=== PATIENT | female | born 1935 | race Caucasian/White ===

== ENCOUNTER 2017-05-17 14:20 | Inpatient (IN) | payer MEDICARE ==
[~2017-05-17] VITALS: Ht 157.5 cm; Wt 73.6 kg
[~2017-05-17 14:20] MED LIST: CLON-352 PO; DYAZ PO; FLON0.053; LOSA50TA PO; LOVA1TAB47 PO; NORC7.5T PO; OMEP20TA PO; VERA1TAB17 PO; VITA-13 PO; VITA10004 PO; Z.0.CPM; Z.0.WALKERFRONT
[2017-05-17 14:31] VITALS: BP 193/113; PULSE 81; RESP 16; TEMP 101.1; O2SAT 93
[2017-05-17] MEDS ORDERED: SODIUM CHLOR 0.9% 1000 ML INJ 1,000 ML IV SCH (14:35)
[2017-05-17] MEDS ORDERED: LOSA50TA PO (14:38)
[2017-05-17] MEDS ORDERED: LOVA20TA PO (14:38)
[2017-05-17] MEDS ORDERED: VERA1TAB17 PO (14:38)
[2017-05-17] MEDS ORDERED: CLON0.1T PO (14:38)
[2017-05-17] MEDS ORDERED: OMEP20TA PO (14:38)
[2017-05-17] MEDS ORDERED: LABETALOL HCL 100 MG/20 ML VIAL IV PUSH ONE (14:45)
--- NOTE | 2017-05-17 14:45 | PD ---
HPI Chief Complaint: Altered Mental Status Time Seen by Provider: 14:27 Travel History International Travel<30 days: No Contact w/Intl Traveler<30days: No Traveled to known affect area: No History of Present Illness HPI The patient is a 82-year-old female who presents to the emergency department via EMS for altered mental status. According to EMS the patient was at home, family states the patient was confused and not following commands. EMS states the patient was complaining of tremors. Upon arrival the patient was noted to be febrile, alert and oriented, but had difficulty following simple instructions such as keeping the thermometer in her mouth. The patient denies any headache, chest pain, shortness of breath, nausea, vomiting, diarrhea , but does note mild lower abdominal pain. The patient was noted to be incontinent of urine, however, the patient denies any associated dysuria or frequency. The patient states her primary physician is Dr. Everette Garcia. The symptoms are mild, there are no alleviating or exacerbating factors. PFSH Past Medical History Arthritis: Yes Cancer: No Cardiovascular Problems: Yes High Cholesterol: Yes Congestive Heart Failure: No Cerebrovascular Accident: No Diabetes: No Endocrine: No Gastrointestinal Disorders: Yes (GERD) GERD: Yes Genitourinary: No Hepatitis: No Hiatal Hernia: No Hypertension: Yes Immune Disorder: No Implanted Vascular Access Dvce: Yes Kidney Stones: No Medical other: No Musculoskeletal: Yes (ARTHRITIS) Neurologic: Yes Psychiatric: No Reproductive: No Respiratory: Yes (ALLERGIES) Immunizations Current: Yes Seizures: No Thyroid Disease: No Ulcer: No Past Surgical History Abdominal Surgery: No AICD: No Cardiac Surgery: No Ear Surgery: Yes (T & A) Genitourinary Surgery: No Gynecologic Surgery: No Joint Replacement: Yes (11/03/14 RIGHT TOTAL KNEE) Oral Surgery: Yes (TONSILLECTOMY) Pacemaker: No Tonsillectomy: Yes Other Surgery: Yes (11/03/14 RIGHT TOTAL KNEE) Social History Alcohol Use: No Tobacco Use: No Substance Use: No Allergies-Medications (Allergen,Severity, Reaction): Coded Allergies: Aspirin (Verified Adverse Reaction, Intermediate, GI, 11/03/14) Codeine (Verified Adverse Reaction, Intermediate, HYPER, 11/03/14) Morphine (Verified Adverse Reaction, Unknown, states causes confusion, ) Reported Meds & Prescriptions Reported Meds & Active Scripts Active Reported Verapamil ER 24 HR (Verapamil HCl) 240 Mg Tab 240 Mg PO HS Omeprazole 20 Mg Tab 20 Mg PO DAILY Lovastatin 20 Mg Tab 20 Mg PO DAILY Losartan (Losartan Potassium) 50 Mg Tab 50 Mg PO BID Clonidine (Clonidine HCl) 0.1 Mg Tab 0.1 Mg PO BID Review of Systems Except as stated in HPI: all other systems reviewed are Neg General / Constitutional: No: Fever HENT: No: Lightheadedness Cardiovascular: No: Chest Pain or Discomfort Respiratory: No: Shortness of Breath Gastrointestinal: Positive: Abdominal Pain (suprapubic discomfort), No: Nausea , Vomiting Genitourinary: No: Urgency, Frequency, Dysuria, Hematuria Musculoskeletal: No: Myalgias Neurologic: Positive: Change in Mentation Physical Exam Narrative GENERAL: Awake, alert, pleasant 82-year-old female who appears her stated age and is in no acute respiratory distress. SKIN: Focused skin assessment warm/dry. HEAD: Atraumatic. Normocephalic. EYES: Pupils equal and round. No scleral icterus. No injection or drainage. ENT: No nasal bleeding or discharge. Dry mucous membranes. Upper dentures noted. NECK: Trachea midline. No JVD. CARDIOVASCULAR: Regular rate and rhythm. No murmur appreciated. RESPIRATORY: No accessory muscle use. Clear to auscultation. Breath sounds equal bilaterally. GASTROINTESTINAL: Abdomen soft, non-tender, nondistended. No rebound tenderness. MUSCULOSKELETAL: The left lower extremity has mild erythema over the distal one third with no obvious break in the skin. The area is warm to the touch and erythematous. Positive distal pulses. NEUROLOGICAL: Awake and alert. No obvious cranial nerve deficits. Motor grossly within normal limits. Normal speech. Patient is oriented to person, place, month, and year. Patient is also oriented to the electronic die maker. PSYCHIATRIC: Appropriate mood and affect; insight and judgment normal. Data Data Last Documented VS Vital Signs Date Time Temp Pulse Resp B/P Pulse Ox O2 Delivery O2 Flow Rate FiO2 05/17/17 15:20 101.1 79 18 192/69 92 Room Air Orders Electrocardiogram (05/17/17 14:35) Ammonia (05/17/17 14:35) Complete Blood Count With Diff (05/17/17 14:35) Comprehensive Metabolic Panel (05/17/17 14:35) Creatine Kinase (Cpk) (05/17/17 14:35) Prothrombin Time / Inr (Pt) (05/17/17 14:35) Act Partial Throm Time (Ptt) (05/17/17 14:35) Troponin I (05/17/17 14:35) Thyroid Stimulating Hormone (05/17/17 14:35) Urinalysis - C+S If Indicated (05/17/17 14:35) Lactic Acid Sepsis Protocol (05/17/17 14:35) Blood Culture (05/17/17 14:35) Chest, Single Ap (05/17/17 14:35) Ct Brain W/O Iv Contrast(Rout) (05/17/17 14:35) Blood Glucose (05/17/17 14:35) Ecg Monitoring (05/17/17 14:35) Iv Access Insert/Monitor (05/17/17 14:35) Oximetry (05/17/17 14:35) Sodium Chloride 0.9% Flush (Ns Flush) (05/17/17 14:45) Sodium Chlor 0.9% 1000 Ml Inj (Ns 1000 M (05/17/17 14:35) Labetalol Inj (Trandate Inj) (05/17/17 14:45) Acetaminophen (Tylenol) (05/17/17 15:00) Urine Culture (05/17/17 15:16) Cefepime Inj (Maxipime Inj) (05/17/17 15:47) Gentamicin Inj (Gentamicin Inj) (05/17/17 15:47) Vancomycin Inj (Vancomycin Inj) (05/17/17 15:47) Admit Order (Ed Use Only) (05/17/17 15:55) Labs Laboratory Tests Test 05/17/17 05/17/17 14:54 15:16 White Blood Count 30.6 TH/MM3 Red Blood Count 4.49 MIL/MM3 Hemoglobin 12.2 GM/DL Hematocrit 37.4 % Mean Corpuscular Volume 83.3 FL Mean Corpuscular Hemoglobin 27.1 PG Mean Corpuscular Hemoglobin 32.6 % Concent Red Cell Distribution Width 13.9 % Platelet Count 265 TH/MM3 Mean Platelet Volume 8.8 FL Neutrophils (%) (Auto) 90.3 % Lymphocytes (%) (Auto) 7.9 % Monocytes (%) (Auto) 0.9 % Eosinophils (%) (Auto) 0.0 % Basophils (%) (Auto) 0.9 % Neutrophils # (Auto) 27.6 TH/MM3 Lymphocytes # (Auto) 2.4 TH/MM3 Monocytes # (Auto) 0.3 TH/MM3 Eosinophils # (Auto) 0.0 TH/MM3 Basophils # (Auto) 0.3 TH/MM3 CBC Comment AUTO DIFF Differential Total Cells 100 Counted Neutrophils % (Manual) 79 % Band Neutrophils % 11 % Lymphocytes % 6 % Monocytes % 1 % Neutrophils # (Manual) 28.5 TH/MM3 Metamyelocytes 2 % Myelocytes 1 % Differential Comment FINAL DIFF MANUAL Platelet Estimate NORMAL Platelet Morphology Comment NORMAL Prothrombin Time 10.5 SEC Prothromb Time International 1.0 RATIO Ratio Activated Partial 25.4 SEC Thromboplast Time Sodium Level 135 MEQ/L Potassium Level 3.8 MEQ/L Chloride Level 102 MEQ/L Carbon Dioxide Level 24.9 MEQ/L Anion Gap 8 MEQ/L Blood Urea Nitrogen 13 MG/DL Creatinine 0.92 MG/DL Estimat Glomerular Filtration 59 ML/MIN Rate Random Glucose 113 MG/DL Lactic Acid Level 2.1 mmol/L Calcium Level 9.3 MG/DL Total Bilirubin 0.6 MG/DL Aspartate Amino Transf 18 U/L (AST/SGOT) Alanine Aminotransferase 15 U/L (ALT/SGPT) Alkaline Phosphatase 80 U/L Ammonia 26 MCMOL/L Total Creatine Kinase 63 U/L Troponin I LESS THAN 0.02 NG/ML Total Protein 7.5 GM/DL Albumin 3.6 GM/DL Thyroid Stimulating Hormone 0.377 uIU/ML 3rd Gen Urine Collection Type CATH Urine Color YELLOW Urine Turbidity CLEAR Urine pH 6.0 Urine Specific [place] 1.013 Urine Protein 100 mg/dL Urine Glucose (UA) NEG mg/dL Urine Ketones NEG mg/dL Urine Occult Blood SMALL Urine Nitrite NEG Urine Bilirubin NEG Urine Leukocyte Esterase NEG Urine RBC 4-9 /hpf Urine WBC 15-19 /hpf Urine WBC Clumps FEW Microscopic Urinalysis Comment CATH-CULTURE IND Urine Collection Time 15:16 MDM Medical Decision Making Medical Screen Exam Complete: Yes Emergency Medical Condition: Yes Medical Record Reviewed: Yes Interpretation(s) EKG reveals normal sinus rhythm with a rate 80. Nonspecific T wave changes. Laboratory Tests Test 05/17/17 05/17/17 14:54 15:16 White Blood Count 30.6 TH/MM3 Red Blood Count 4.49 MIL/MM3 Hemoglobin 12.2 GM/DL Hematocrit 37.4 % Mean Corpuscular Volume 83.3 FL Mean Corpuscular Hemoglobin 27.1 PG Mean Corpuscular Hemoglobin 32.6 % Concent Red Cell Distribution Width 13.9 % Platelet Count 265 TH/MM3 Mean Platelet Volume 8.8 FL Neutrophils (%) (Auto) 90.3 % Lymphocytes (%) (Auto) 7.9 % Monocytes (%) (Auto) 0.9 % Eosinophils (%) (Auto) 0.0 % Basophils (%) (Auto) 0.9 % Neutrophils # (Auto) 27.6 TH/MM3 Lymphocytes # (Auto) 2.4 TH/MM3 Monocytes # (Auto) 0.3 TH/MM3 Eosinophils # (Auto) 0.0 TH/MM3 Basophils # (Auto) 0.3 TH/MM3 CBC Comment AUTO DIFF Differential Total Cells 100 Counted Neutrophils % (Manual) 79 % Band Neutrophils % 11 % Lymphocytes % 6 % Monocytes % 1 % Neutrophils # (Manual) 28.5 TH/MM3 Metamyelocytes 2 % Myelocytes 1 % Differential Comment FINAL DIFF MANUAL Platelet Estimate NORMAL Platelet Morphology Comment NORMAL Prothrombin Time 10.5 SEC Prothromb Time International 1.0 RATIO Ratio Activated Partial 25.4 SEC Thromboplast Time Sodium Level 135 MEQ/L Potassium Level 3.8 MEQ/L Chloride Level 102 MEQ/L Carbon Dioxide Level 24.9 MEQ/L Anion Gap 8 MEQ/L Blood Urea Nitrogen 13 MG/DL Creatinine 0.92 MG/DL Estimat Glomerular Filtration 59 ML/MIN Rate Random Glucose 113 MG/DL Lactic Acid Level 2.1 mmol/L Calcium Level 9.3 MG/DL Total Bilirubin 0.6 MG/DL Aspartate Amino Transf 18 U/L (AST/SGOT) Alanine Aminotransferase 15 U/L (ALT/SGPT) Alkaline Phosphatase 80 U/L Ammonia 26 MCMOL/L Total Creatine Kinase 63 U/L Troponin I LESS THAN 0.02 NG/ML Total Protein 7.5 GM/DL Albumin 3.6 GM/DL Thyroid Stimulating Hormone 0.377 uIU/ML 3rd Gen Urine Collection Type CATH Urine Color YELLOW Urine Turbidity CLEAR Urine pH 6.0 Urine Specific [place] 1.013 Urine Protein 100 mg/dL Urine Glucose (UA) NEG mg/dL Urine Ketones NEG mg/dL Urine Occult Blood SMALL Urine Nitrite NEG Urine Bilirubin NEG Urine Leukocyte Esterase NEG Urine RBC 4-9 /hpf Urine WBC 15-19 /hpf Urine WBC Clumps FEW Microscopic Urinalysis Comment CATH-CULTURE IND Urine Collection Time 15:16 CT of the brain reveals no evidence of acute infarct, hemorrhage, mass, or edema. Mild ventriculomegaly. Differential Diagnosis Differential diagnosis includes UTI, subdural hemorrhage, hyponatremia, pneumonia, sepsis, meningitis, encephalitis, delirium, medication side effect. Narrative Course IV was established, labs are drawn and sent, and the patient was placed on cardiac telemetry monitoring and continuous pulse oximetry monitoring. EKG was ordered and interpreted. Chest x-ray was obtained. Catheter UA was sent to lab. Lactic acid blood culture were sent to lab. The patient's white count was 30.6 with bandemia 11%. UA is positive for WBCs 15-19, and chest x-rays unremarkable. Lactic acid is mildly elevated at 2.1. The patient was administered antibiotics, she may severe sepsis criteria with leukocytosis, bandemia, and fever. Patient's primary physician is Dr. Everette Garcia with [facility], therefore, the on-call [facility] physician was paged for admission. The patient received Zosyn, gentamicin, and vancomycin for sepsis. The patient does appear to have cellulitis and UTI, will be covered for both. I discussed the patient with Dr. Levy who agrees with admission. Sepsis Criteria SIRS Criteria (2 or more): Temp > 100.9 or < 96.8, WBC > 22804, < 4000 or > 10 % bands Sepsis Criteria (SIRS+source): Infect source susp/known Severe Sepsis (+one): Lactate >2 Criteria Outcome: Meets severe sepsis criteria Physician Communication Physician Communication The on-call [facility] physician was paged for admission. I discussed patient with Dr. Levy who agrees with admission. Diagnosis Primary Impression: Sepsis Qualified Code: A41.9 - Sepsis, due to unspecified organism Additional Impressions: Leukocytosis Qualified Code: D72.825 - Bandemia Lactic acidosis UTI (urinary tract infection) Qualified Code: N30.00 - Acute cystitis without hematuria Admitting Information Admitting Physician Requests: Admit Condition: Stable Ming Benedict MD May 17, 2017 14:45
[2017-05-17 14:56] VITALS: O2SAT 97
[2017-05-17] MEDS ORDERED: ACETAMINOPHEN 325 MG TAB PO ONE (15:00)
[2017-05-17 15:06] LABS: AUTOMATED NEUTROPHIL # 27.6 TH/MM3 (1.8-7.7); BASOPHIL # 0.3 TH/MM3 (0-0.2); BASOPHIL % 0.9 % (0.0-2.0); HEMATOCRIT 37.4 % (35.0-46.0); LYMPH % 7.9 % (9.0-44.0); LYMPHOCYTE # 2.4 TH/MM3 (1.0-4.8); MEAN CELL VOLUME 83.3 FL (80.0-100.0); MEAN CORPUSCULAR HEMOGLOBIN 27.1 PG (27.0-34.0); MEAN CORPUSCULAR HGB CONC 32.6 % (32.0-36.0); MONO % 0.9 % (0.0-8.0); NEUT % 90.3 % (16.0-70.0); PLATELET COUNT 265 TH/MM3 (150-450); RED BLOOD COUNT 4.49 MIL/MM3 (4.00-5.30); RED CELL DISTRIBUTION WIDTH 13.9 % (11.6-17.2); WHITE BLOOD COUNT 30.6 TH/MM3 (4.0-11.0)
[2017-05-17 15:12] LABS: HEMO FLAGS AUTO DIFF
[2017-05-17 15:15] LABS: CHLORIDE 102 MEQ/L (98-107); POTASSIUM 3.8 MEQ/L (3.5-5.1); SODIUM (NA) 135 MEQ/L (136-145)
[2017-05-17 15:18] LABS: ANION GAP 8 MEQ/L (5-15); BICARBONATE 24.9 MEQ/L (21.0-32.0)
[2017-05-17 15:19] LABS: APTT (PATIENT) 25.4 SEC (24.3-30.1); BLOOD UREA NITROGEN 13 MG/DL (7-18); PROTHROMBIN TIME - PATIENT 10.5 SEC (9.8-11.6)
[2017-05-17 15:20] VITALS: BP 192/69; PULSE 79; RESP 18; TEMP 101.1; O2SAT 92
[2017-05-17 15:21] LABS: BLOOD, URINE SMALL (NEG); GLUCOSE,URINE NEG (NEG); KETONE, URINE NEG (NEG); NITRITE,URINE NEG (NEG)
[2017-05-17 15:21] LABS: ALT (GPT) 15 U/L (10-53); AST (GOT) 18 U/L (15-37)
[2017-05-17 15:22] LABS: GLOMERULAR FILTRATION RATE 59 ML/MIN (>89)
[2017-05-17 15:23] LABS: TOTAL BILIRUBIN ADULT 0.6 MG/DL (0.2-1.0)
[2017-05-17 15:24] LABS: ALKALINE PHOSPHATASE 80 U/L (45-117)
[2017-05-17 15:31] LABS: METHOD OF COLLECTION CATH; URINE COLOR YELLOW (YELLW/STRAW)
[2017-05-17 15:32] LABS: COMMENT (UR) CATH-CULTURE IND; CULTURE IF INDICATED CATH CULTURE IND; WBC, URINE 15-19 /hpf (0-5)
[2017-05-17 15:35] LABS: CREATINE KINASE 63 U/L (26-192)
--- NOTE | 2017-05-17 15:40 | RADRPT ---
EXAM DATE/TIME: 05/17/2017 15:17 [facility] COMPARISON: CHEST PA & LAT, February 04, 2014, 10:14. INDICATIONS : Fever. MEDICAL HISTORY : None. SURGICAL HISTORY : None. ENCOUNTER: Initial ACUITY: 1 day PAIN SCORE: 0/10 LOCATION: Bilateral chest FINDINGS: A single view of the chest demonstrates the lungs to be symmetrically aerated without evidence of mas s, infiltrate or effusion. The cardiomediastinal contours are unremarkable. Osseous structures are intact. CONCLUSION: No acute disease. Vargas Juarez MD on May 17, 2017 at 15:38 Board Certified Radiologist. This report was verified electronically.
[2017-05-17 15:41] LABS: BANDS 11 % (0-6); METAMYELOCYTES 2 % (0-1); MYELOCYTES 1 % (0-0); NEUTROPHIL # MANUAL DIFF 28.5 TH/MM3 (1.8-7.7); PLATELET ESTIMATE SMEAR NORMAL (NORMAL); PLATELET MORPHOLOGY NORMAL (NORMAL); POLYS (SEG NEUTROPHILS) 79 % (16-70); SCAN/DIFF FINAL DIFF MANUAL; WBC DIFF SAMPLE 100
[2017-05-17] MEDS ORDERED: GENTAMICIN INJ 80 MG in SODIUM CHLORIDE 0.9% INJ 100 ML IV STA (15:47)
[2017-05-17] MEDS ORDERED: VANCOMYCIN INJ 1,000 MG in SODIUM CHLOR 0.9% 250 ML INJ 250 ML IV STA (15:47)
[2017-05-17] MEDS ORDERED: CEFEPIME INJ 2,000 MG in SODIUM CHLORIDE 0.9% INJ 100 ML IV STA (15:47)
--- NOTE | 2017-05-17 15:54 | RADRPT ---
EXAM DATE/TIME: 05/17/2017 15:32 [facility] COMPARISON: No previous studies available for comparison. INDICATIONS : Altered mental status. Weakness. RADIATION DOSE: 58.22 CTDIvol (mGy) ; Patient motion MEDICAL HISTORY : Hypertension. Cardiovascular disease SURGICAL HISTORY : None. ENCOUNTER: Initial ACUITY: 1 day PAIN SCALE: 0/10 LOCATION: cranial TECHNIQUE: Multiple contiguous axial images were obtained of the head. Using automated exposure control and adj ustment of the mA and/or kV according to patient size, radiation dose was kept as low as reasonably a chievable to obtain optimal diagnostic quality images. DICOM format image data is available electro nically for review and comparison. FINDINGS: CEREBRUM: The ventricles are mildly enlarged. No evidence of midline shift, mass lesion, hemorrhage or acute i nfarction. No extra-axial fluid collections are seen. POSTERIOR FOSSA: The cerebellum and brainstem are intact. The 4th ventricle is midline. The cerebellopontine angle i s unremarkable. EXTRACRANIAL: The visualized portion of the orbits is intact. SKULL: The calvaria is intact. No evidence of skull fracture. CONCLUSION: 1. No evidence of acute infarct, hemorrhage, mass or edema. 2. Mild ventriculomegaly Vargas Juarez MD on May 17, 2017 at 15:51 Board Certified Radiologist. This report was verified electronically.
[2017-05-17 16:05] VITALS: BP 159/83; PULSE 81; RESP 16; TEMP 101.1; O2SAT 91
[2017-05-17] MEDS ORDERED: IBUPROFEN 400 MG TAB PO ONE (16:15)
[2017-05-17 17:01] LABS: LACTIC ACID GHOST NOT REPORTABLE
--- NOTE | 2017-05-17 17:10 | HHI.HP ---
HPI Service [facility] Hospitalists Primary Care Physician Everette Garcia MD Admission Diagnosis sepsis, UTI, cellulitis, leukocytosis, lactic acidosis, AMS Chief Complaint: AMS, fever, leg rash, "shakes" Travel History International Travel<30 Days: No Contact w/Intl Traveler <30 Da: No Traveled to Known Affected Are: No Sepsis Criteria SIRS Criteria (2 or more): Temp > 100.9 or < 96.8, WBC > 09486, < 4000 or > 10 % bands Sepsis Criteria (SIRS+source): Infect source susp/known Severe Sepsis (+one): Lactate >2 Criteria Outcome: Meets severe sepsis criteria History of Present Illness The patient is a 82-year-old female with HTN, hyperlipidemia, gait instability who presents to the emergency department via EMS for altered mental status. According to EMS the patient was at home and family states the patient was confused and not following commands which started this morning. Patient was actually doing well and she awoke this morning and was able to take her cat to the vet and return home without incident. The patient and family report that she was having "the shakes" at home. Upon arrival the patient was noted to be febrile, alert and oriented, but had difficulty following simple instructions such as keeping the thermometer in her mouth. The patient denies any headache, chest pain, shortness of breath, nausea, vomiting, diarrhea, but does note mild lower abdominal pain. The patient was noted to be incontinent of urine, however, the patient denies any associated dysuria or frequency. The patient states her primary physician is Dr. Everette Garcia. The symptoms are mild , there are no alleviating or exacerbating factors. She has been treated with IV fluids and antibiotics here. She and family report that the patient is much more coherent and has only minimal tremor at this time. Patient is able to recount the events of today and is aware that she was confused earlier but feels much improved presently. Patient was noted to have erythematous rash distal left lower extremity. She denies any trauma to the area or any known arthropod envenomation or other unusual contacts. Family members aren't sure of how long this has been present for do not believe the rash was present over the last day or so. Patient denies any photophobia or neck stiffness. Review of Systems ROS Limitations: Altered Mental Status Constitutional: COMPLAINS OF: Fever, Chills, Dizziness Eyes: DENIES: Blurred vision, Diplopia, Eye inflammation, Eye pain, Vision loss , Photosensitivity, Double Vision Ears, nose, mouth, throat: DENIES: Tinnitus, Hearing loss, Vertigo, Nasal discharge, Oral lesions, Throat pain, Hoarseness, Ear Pain, Running Nose, Epistaxis, Sinus Pain, Toothache, Odynophagia Respiratory: DENIES: Apneas, Cough, Snoring, Wheezing, Hemoptysis, Sputum production, Shortness of breath Cardiovascular: DENIES: Chest pain, Palpitations, Syncope, Dyspnea on Exertion , PND, Lower Extremity Edema, Orthopnea, Claudication Gastrointestinal: DENIES: Abdominal pain, Black stools, Bloody stools, BRB per rectum, Constipation, Diarrhea, GERD, Nausea, Reflux, Vomiting, Difficulty Swallowing, Anorexia, See HPI Musculoskeletal: COMPLAINS OF: Joint pain Integumentary: COMPLAINS OF: Rash Immunologic/allergic: DENIES: Eczema, Urticaria Neurologic: COMPLAINS OF: Poor Balance Psychiatric: COMPLAINS OF: Anxiety, Confusion Past Family Social History Past Medical History GERD Gait instability HTN Hpercalcemia Hyperlipidemia Lumbar DDD Osteoporosis Superior Mesenteric Artery stenosis Vit D and B12 def Emphysema Past Surgical History Rt TKA 10/2014 Removal of Right knee arthroplasty due to infection 11/2014 T&A Colonoscopy/EGD Reported Medications Verapamil ER 24 HR (Verapamil HCl) 240 Mg Tab 240 Mg PO BID Omeprazole 20 Mg Tab 20 Mg PO DAILY Lovastatin 20 Mg Tab 20 Mg PO DAILY Losartan (Losartan Potassium) 50 Mg Tab 50 Mg PO BID Clonidine (Clonidine HCl) 0.1 Mg Tab 0.1 Mg PO BID Flonase prn B12 500 mcg po daily vit D 2000 units/d Triamterene/HCTZ 37.5/25 once daily (unclear if she is taking this as directed close) Allergies: Coded Allergies: Aspirin (Verified Adverse Reaction, Intermediate, GI, 11/03/14) Codeine (Verified Adverse Reaction, Intermediate, HYPER, 11/03/14) Morphine (Verified Adverse Reaction, Unknown, states causes confusion, ) Family History nc Social History No tobacco since 1999; prior to that smoked 1/3 to 1/2 ppd for 40 yrs No EtOH Retired from school cafeteria Exercises regularly Physical Exam Vital Signs Vital Signs Date Time Temp Pulse Resp B/P Pulse Ox O2 Delivery O2 Flow Rate FiO2 05/17/17 16:05 101.1 81 16 159/83 91 Room Air 05/17/17 15:20 101.1 79 18 192/69 92 Room Air 05/17/17 14:56 97 Room Air 05/17/17 14:31 101.1 81 16 193/113 93 Physical Exam GENERAL: This is a well-nourished, well-developed patient, in no apparent distress. Alert but somewhat confused. She is able to recount the day of the week and the year but reports that it is February 22, 2017 (actual date May 17, 2017). She is cooperative with exam and follow simple commands well. SKIN: Erythematous patch anterior left lower fuentes with mild tenderness to palpation. No bulla formation or open wounds. No drainage. No surrounding satellite lesions. No lymphangitic streaks. HEAD: Atraumatic. Normocephalic. No temporal or scalp tenderness. EYES: Pupils equal round and reactive. Extraocular motions intact. No scleral icterus. No injection or drainage. ENT: Nose without bleeding, purulent drainage or septal hematoma. Appears to have slight dried blood in lower vehicle mucosa on the left. No obvious mass or lesion. Airway patent. NECK: Trachea midline. No JVD or lymphadenopathy. Supple, nontender, no meningeal signs. CARDIOVASCULAR: Regular rate and rhythm without murmurs, gallops, or rubs. RESPIRATORY: Clear to auscultation. Breath sounds equal bilaterally. No wheezes , rales, or rhonchi. GASTROINTESTINAL: Abdomen soft, non-tender, nondistended. No hepato-splenomegaly , or palpable masses. No guarding. Bowel sounds normal. MUSCULOSKELETAL: Extremities without clubbing, cyanosis. Trace edema bilateral distal lower extremities. Erythematous patch left fuentes as noted above. No joint tenderness, effusion, or edema noted. No calf tenderness. NEUROLOGICAL: Awake and alert. Cranial nerves II through XII intact. Motor and sensory grossly within normal limits. Five out of 5 muscle strength in all muscle groups. Normal speech. Laboratory Laboratory Tests Test 05/17/17 05/17/17 14:54 15:16 White Blood Count 30.6 Red Blood Count 4.49 Hemoglobin 12.2 Hematocrit 37.4 Mean Corpuscular Volume 83.3 Mean Corpuscular Hemoglobin 27.1 Mean Corpuscular Hemoglobin 32.6 Concent Red Cell Distribution Width 13.9 Platelet Count 265 Mean Platelet Volume 8.8 Neutrophils (%) (Auto) 90.3 Lymphocytes (%) (Auto) 7.9 Monocytes (%) (Auto) 0.9 Eosinophils (%) (Auto) 0.0 Basophils (%) (Auto) 0.9 Neutrophils # (Auto) 27.6 Lymphocytes # (Auto) 2.4 Monocytes # (Auto) 0.3 Eosinophils # (Auto) 0.0 Basophils # (Auto) 0.3 CBC Comment AUTO DIFF Differential Total Cells 100 Counted Neutrophils % (Manual) 79 Band Neutrophils % 11 Lymphocytes % 6 Monocytes % 1 Neutrophils # (Manual) 28.5 Metamyelocytes 2 Myelocytes 1 Differential Comment FINAL DIFF MANUAL Platelet Estimate NORMAL Platelet Morphology Comment NORMAL Prothrombin Time 10.5 Prothromb Time International 1.0 Ratio Activated Partial 25.4 Thromboplast Time Sodium Level 135 Potassium Level 3.8 Chloride Level 102 Carbon Dioxide Level 24.9 Anion Gap 8 Blood Urea Nitrogen 13 Creatinine 0.92 Estimat Glomerular Filtration 59 Rate Random Glucose 113 Lactic Acid Level 2.1 Calcium Level 9.3 Total Bilirubin 0.6 Aspartate Amino Transf 18 (AST/SGOT) Alanine Aminotransferase 15 (ALT/SGPT) Alkaline Phosphatase 80 Ammonia 26 Total Creatine Kinase 63 Troponin I LESS THAN 0.02 Total Protein 7.5 Albumin 3.6 Thyroid Stimulating Hormone 0.377 3rd Gen Urine Collection Type CATH Urine Color YELLOW Urine Turbidity CLEAR Urine pH 6.0 Urine Specific Brinson 1.013 Urine Protein 100 Urine Glucose (UA) NEG Urine Ketones NEG Urine Occult Blood SMALL Urine Nitrite NEG Urine Bilirubin NEG Urine Leukocyte Esterase NEG Urine RBC 4-9 Urine WBC 15-19 Urine WBC Clumps FEW Microscopic Urinalysis Comment CATH-CULTURE IND Urine Collection Time 15:16 Date/Time Procedure Status Source Growth 05/17/17 15:16 Urine Culture Received Urine Catheterized Urine Pending 05/17/17 14:55 Aerobic Blood Culture Received Blood Peripheral Pending 05/17/17 14:55 Anaerobic Blood Culture Received Blood Peripheral Pending Result Diagram: 05/17/17 1454 05/17/17 1454 Imaging Last [address] 05/17/17 1435 Signed Impressions: Service Date/Time: Wednesday, May 17, 2017 15:32 - CONCLUSION: 1. No evidence of acute infarct, hemorrhage, mass or edema. 2. Mild ventriculomegaly Vargas Juarez MD Chest X-Ray 05/17/17 1435 Signed Impressions: Service Date/Time: Wednesday, May 17, 2017 15:17 - CONCLUSION: No acute disease. Vargas Juarez MD Septic Shock Reassessment Heart: Regular rate and rhythm Lungs: Clear Skin: Warm Peripheral Pulses: Bounding Right Popliteal Bounding Left Popliteal Capillary Refill: Brisk Assessment and Plan Problem List: (1) Sepsis Status: Acute Plan: Possibly associated with underlying urinary infection and for the cellulitic process in the left lower extremity. We'll continue broad-spectrum antibiotic coverage. Cultures are pending. She appears to have had good response to the IV fluids and antibiotic she has been given thus far. Clinically appears quite stable and her mentation is returning to baseline. (2) Lactic acidosis Status: Acute Plan: Likely associated with the septic process ongoing. Continue lactic acid protocol. IV fluids and antibiotics. (3) UTI (urinary tract infection) Status: Acute Plan: As above. (4) GERD (gastroesophageal reflux disease) Status: Chronic Plan: Continue PPI. (5) HTN (hypertension) Status: Chronic Plan: Continue home medication. It is unclear if she is actually taking her triamterene/HCTZ based on outpatient refill history. (6) Emphysema of lung Status: Chronic Plan: Duo neb as needed. Code Status Full Discussed Condition With Patient, her sister, her [id number] and ER provider. Physician Certification 2 Midnight Certification Type: Admission for Inpatient Services Order for Inpatient Services The services are ordered in accordance with Medicare regulations or non- Medicare payer requirements, as applicable. In the case of services not specified as inpatient-only, they are appropriately provided as inpatient services in accordance with the 2-midnight benchmark. Estimated LOS (days): 2 days is the estimated time the patient will need to remain in the hospital, assuming treatment plan goals are met and no additional complications. Post-Hospital Plan: Not yet determined Problem Qualifiers (1) Sepsis: Qualified Code: A41.9 - Sepsis, due to unspecified organism (2) UTI (urinary tract infection): Qualified Code: N30.00 - Acute cystitis without hematuria (3) HTN (hypertension): Qualified Code: I10 - Essential hypertension James Levy MD PhD May 17, 2017 17:10
[2017-05-17 17:48] VITALS: BP 162/69; PULSE 76; RESP 21; TEMP 98; O2SAT 92
[2017-05-17] MEDS ORDERED: Vancomycin Consult Pharmacy 1 EA OTHER SCH (18:15)
[2017-05-17 20:00] VITALS: BP 153/68; PULSE 70; RESP 16; TEMP 98.9; O2SAT 96
[2017-05-17] MEDS: LOSARTAN 50 MG TAB PO SCH (20:14)
[2017-05-17] MEDS: cloNIDine HCL 0.1 MG TAB PO SCH (20:14)
[2017-05-17] MEDS ORDERED: ACETAMINOPHEN 325 MG TAB PO PRN (20:15)
[2017-05-17] MEDS: NS + KCL 20 MEQ INJ 1,000 ML IV SCH (20:19)
[2017-05-18] VITALS: BP 165/65; PULSE 71; RESP 18; TEMP 98.9; O2SAT 95
[2017-05-18] MEDS ORDERED: RESP: ALBUTEROL 2.5 MG/IPRATROPIUM 0.5 MG NEB (PRN) NEB ×2 (02:15→19:30)
[2017-05-18] MEDS: CEFEPIME INJ 2,000 MG in SODIUM CHLORIDE 0.9% INJ 100 ML IV SCH ×2 (03:10→16:10)
[2017-05-18] MEDS: NS + KCL 20 MEQ INJ 1,000 ML IV SCH (05:31)
[2017-05-18 06:22] LABS: AUTOMATED NEUTROPHIL # 16.9 TH/MM3 (1.8-7.7); BASOPHIL # 0.1 TH/MM3 (0-0.2); BASOPHIL % 0.4 % (0.0-2.0); EOSINOPHIL % 0.2 % (0.0-4.0); HEMATOCRIT 31.1 % (35.0-46.0); LYMPH % 9.8 % (9.0-44.0); LYMPHOCYTE # 1.9 TH/MM3 (1.0-4.8); MEAN CORPUSCULAR HEMOGLOBIN 27.1 PG (27.0-34.0); MONO % 4.8 % (0.0-8.0); NEUT % 84.8 % (16.0-70.0); PLATELET COUNT 180 TH/MM3 (150-450); RED BLOOD COUNT 3.79 MIL/MM3 (4.00-5.30); RED CELL DISTRIBUTION WIDTH 13.9 % (11.6-17.2); WHITE BLOOD COUNT 19.8 TH/MM3 (4.0-11.0)
[2017-05-18 06:26] LABS: POTASSIUM 3.8 MEQ/L (3.5-5.1)
[2017-05-18 06:28] LABS: HEMO FLAGS DIFF FINAL
[2017-05-18 06:35] LABS: BICARBONATE 24.3 MEQ/L (21.0-32.0)
[2017-05-18] MEDS: cloNIDine HCL 0.1 MG TAB PO SCH ×2 (07:42→20:23)
[2017-05-18] MEDS: ENOXAPARIN SODIUM 30 MG/0.3 ML SYRINGE SQ SCH (07:42)
[2017-05-18] MEDS: PANTOPRAZOLE SOD 20 MG DELAYED RELEASE TAB PO SCH (07:43)
[2017-05-18] MEDS: PRAVASTATIN SOD 20 MG TAB PO SCH (07:43)
[2017-05-18] MEDS: LOSARTAN 50 MG TAB PO SCH ×2 (07:43→20:23)
--- NOTE | 2017-05-18 07:59 | HHI.PR ---
Subjective Remarks Patient reports feeling much better. No fever overnight. Tolerating oral intake. She has been ambulating in the room with assistance. No more urinary incontinence. Objective Vitals GENERAL: No acute distress, pleasant, alert and oriented. No confusion noted on exam this morning. SKIN: Warm and dry. Left distal fuentes erythematous patch improved with noted decrease in size. Still somewhat warm to touch but nonpainful. HEAD: Normocephalic. EYES: No scleral icterus. No injection or drainage. NECK: Supple, trachea midline. No JVD or lymphadenopathy. CARDIOVASCULAR: Regular rate and rhythm without murmurs, gallops, or rubs. RESPIRATORY: Breath sounds equal bilaterally. No accessory muscle use. GASTROINTESTINAL: Abdomen soft, non-tender, nondistended. Bowel sounds normal. MUSCULOSKELETAL: No cyanosis, or edema. Vital Signs Date Time Temp Pulse Resp B/P Pulse Ox O2 Delivery O2 Flow Rate FiO2 05/18/17 00:00 98.9 71 18 165/65 95 05/17/17 20:00 98.9 70 16 153/68 96 05/17/17 17:48 98.0 76 21 162/69 92 05/17/17 16:05 101.1 81 16 159/83 91 Room Air 05/17/17 15:20 101.1 79 18 192/69 92 Room Air 05/17/17 14:56 97 Room Air 05/17/17 14:31 101.1 81 16 193/113 93 05/17/17 05/17/17 05/18/17 15:00 23:00 07:00 Intake Total 1000 ml Output Total 450 ml Balance 550 ml Intake IV Total 1000 ml Output Urine Total 450 ml # Voids 1 Result Diagram: 05/18/17 0528 05/18/17 0528 Imaging Last [address] 05/17/171434 Signed Impressions: Service Date/Time: Wednesday, May 17, 2017 15:32 - CONCLUSION: 1. No evidence of acute infarct, hemorrhage, mass or edema. 2. Mild ventriculomegaly Vargas Juarez MD Chest X-Ray 05/17/17 1435 Signed Impressions: Service Date/Time: Wednesday, May 17, 2017 15:17 - CONCLUSION: No acute disease. Vargas Juarez MD Urinary Catheter: No Vascular Central Line Catheter: No A/P Problem List: (1) Sepsis Status: Acute Plan: Possibly associated with underlying urinary infection and for the cellulitic process in the left lower extremity. We'll continue broad-spectrum antibiotic coverage. Cultures are pending. Appears much improved this morning with no confusion and no more fever. (2) Lactic acidosis Status: Acute Plan: Likely associated with the septic process ongoing. Continue IV fluids and antibiotics. Lactic acid normal this morning. (3) UTI (urinary tract infection) Status: Acute Plan: As above. (4) GERD (gastroesophageal reflux disease) Status: Chronic Plan: Continue PPI. (5) HTN (hypertension) Status: Chronic Plan: Continue home medication. It is unclear if she is actually taking her triamterene/HCTZ based on outpatient refill history. Last few diastolic values have been in the 60s so we'll monitor closely. (6) Emphysema of lung Status: Chronic Plan: Duo neb as needed. Discharge Planning Hopefully discharge in next 1-2 days. Problem Qualifiers (1) Sepsis: Qualified Code: A41.9 - Sepsis, due to unspecified organism (2) UTI (urinary tract infection): Qualified Code: N30.00 - Acute cystitis without hematuria (3) HTN (hypertension): Qualified Code: I10 - Essential hypertension James Levy MD PhD May 18, 2017 07:59
[2017-05-18 08:00] VITALS: BP 179/63; PULSE 76; RESP 17; TEMP 99.6; O2SAT 98
--- NOTE | 2017-05-18 11:26 | EKG ---
Date Performed: 05/17/2017 Time Performed: 14:54:59 PTAGE: 82 years EKG: Sinus rhythm NONSPECIFIC ST & T-WAVE ABNORMALITY BORDERLINE ECG Since PREVIOUS TRACING , no significant change noted PREVIOUS TRACIN02/04/2014 10.14 DOCTOR: Julius Tenorio Interpretating Date/Time 05/18/2017 11:24:37
[2017-05-18 12:00] VITALS: BP 164/64; PULSE 67; RESP 17; TEMP 97.6; O2SAT 93
[2017-05-18] MEDS: VANCOMYCIN 1,000 MG/NS 250 ML IV SCH ×2 (12:41)
[2017-05-18 16:00] VITALS: BP 130/100; PULSE 102; RESP 19; TEMP 99.5; O2SAT 92
[2017-05-18 19:11] VITALS: O2SAT 97
[2017-05-18 20:00] VITALS: BP 184/60; PULSE 84; RESP 21; TEMP 99.5; O2SAT 93
[2017-05-18] MEDS: SODIUM CHLORIDE 0.9% FLUSH 5 ML FLUSH IV FLUSH PRN (20:24)
[2017-05-18] MEDS ORDERED: VERAPAMIL HCL 240 MG SUSTAINED RELEASE TAB PO SCH (21:00)
[2017-05-19] VITALS (7 sets, daily range): BP systolic 140–178; BP diastolic 65–82; PULSE 60–73; RESP 18–20; TEMP 97.3–99.7; O2SAT 92–96
[2017-05-19] MEDS: SODIUM CHLORIDE 0.9% FLUSH 5 ML FLUSH IV FLUSH PRN (03:17)
[2017-05-19] MEDS: CEFEPIME INJ 2,000 MG in SODIUM CHLORIDE 0.9% INJ 100 ML IV SCH ×2 (03:17→16:00)
[2017-05-19] MEDS: VANCOMYCIN 1,000 MG/NS 250 ML IV SCH ×2 (04:09)
[2017-05-19 06:42] LABS: BASOPHIL % 0.2 % (0.0-2.0); EOSINOPHIL # 0.1 TH/MM3 (0-0.4); EOSINOPHIL % 0.6 % (0.0-4.0); HEMATOCRIT 30.2 % (35.0-46.0); HEMO FLAGS DIFF FINAL; LYMPH % 17.7 % (9.0-44.0); LYMPHOCYTE # 2.3 TH/MM3 (1.0-4.8); MEAN CELL VOLUME 82.8 FL (80.0-100.0); MEAN CORPUSCULAR HEMOGLOBIN 26.5 PG (27.0-34.0); MONO % 6.7 % (0.0-8.0); NEUT % 74.8 % (16.0-70.0); PLATELET COUNT 178 TH/MM3 (150-450); RED BLOOD COUNT 3.65 MIL/MM3 (4.00-5.30); RED CELL DISTRIBUTION WIDTH 13.6 % (11.6-17.2); WHITE BLOOD COUNT 13.3 TH/MM3 (4.0-11.0)
--- NOTE | 2017-05-19 08:05 | HHI.FF ---
Face to Face Verification Diagnosis: (1) Sepsis (2) Emphysema of lung Physical Therapy Order: Evaluate and Treat, Improve ambulation, Strength and gait training Home Health Nursing Order: Signs/symptoms of disease process Nursing assessment with vital signs I have seen patient Jimmy Ubran on 05/19/17. My clinical findings support the need for the requested home health care services because: Ltd mobility - disease progression Patient has SOB I certify that my clinical findings support that this patient is homebound because: Hx COPD- exertion dyspnea/weakness Unsteady gait/balance James Levy MD PhD May 19, 2017 08:05
[2017-05-19] MEDS ORDERED: VENTAER INH (08:06)
[2017-05-19] MEDS ORDERED: DOXY100C PO (08:06)
[2017-05-19] MEDS ORDERED: SULF1TAB23 PO (08:06)
[2017-05-19] MEDS: PANTOPRAZOLE SOD 20 MG DELAYED RELEASE TAB PO SCH (08:11)
[2017-05-19] MEDS: cloNIDine HCL 0.1 MG TAB PO SCH (08:11)
--- NOTE | 2017-05-19 08:11 | HHI.DS ---
Discharge Summary Admission Date May 17, 2017 at 15:56 Admitting Diagnosis sepsis, UTI, cellulitis, leukocytosis, lactic acidosis, AMS (1) Sepsis Diagnosis: Principal (2) Lactic acidosis Diagnosis: Principal (3) UTI (urinary tract infection) Diagnosis: Principal (4) GERD (gastroesophageal reflux disease) Diagnosis: Secondary (5) HTN (hypertension) Diagnosis: Secondary (6) Emphysema of lung Diagnosis: Secondary Brief History The patient is a 82-year-old female with HTN, hyperlipidemia, gait instability who presents to the emergency department via EMS for altered mental status. According to EMS the patient was at home and family states the patient was confused and not following commands which started this morning. Patient was actually doing well and she awoke this morning and was able to take her cat to the vet and return home without incident. The patient and family report that she was having "the shakes" at home. Upon arrival the patient was noted to be febrile, alert and oriented, but had difficulty following simple instructions such as keeping the thermometer in her mouth. The patient denies any headache, chest pain, shortness of breath, nausea, vomiting, diarrhea, but does note mild lower abdominal pain. The patient was noted to be incontinent of urine, however, the patient denies any associated dysuria or frequency. The patient states her primary physician is Dr. Everette Garcia. The symptoms are mild , there are no alleviating or exacerbating factors. She has been treated with IV fluids and antibiotics here. She and family report that the patient is much more coherent and has only minimal tremor at this time. Patient is able to recount the events of today and is aware that she was confused earlier but feels much improved presently. Patient was noted to have erythematous rash distal left lower extremity. She denies any trauma to the area or any known arthropod envenomation or other unusual contacts. Family members aren't sure of how long this has been present for do not believe the rash was present over the last day or so. Patient denies any photophobia or neck stiffness. CBC/BMP: 05/19/17 0510 05/18/17 0528 Significant Findings Laboratory Tests Test 05/17/17 05/17/17 05/17/17 05/18/17 14:54 15:16 17:31 05:28 Sodium Level 135 MEQ/L (136-145) Estimat Glomerular Filtration 59 ML/MIN (>89) 78 ML/MIN (>89) Rate Random Glucose 113 MG/DL (74-106) Lactic Acid Level 2.1 mmol/L 2.3 mmol/L (0.4-2.0) (0.4-2.0) Troponin I LESS THAN 0.02 NG/ML (0.02-0.05) White Blood Count 30.6 TH/MM3 19.8 TH/MM3 (4.0-11.0) (4.0-11.0) Neutrophils (%) (Auto) 90.3 % 84.8 % (16.0-70.0) (16.0-70.0) Lymphocytes (%) (Auto) 7.9 % (9.0-44.0) Neutrophils # (Auto) 27.6 TH/MM3 16.9 TH/MM3 (1.8-7.7) (1.8-7.7) Basophils # (Auto) 0.3 TH/MM3 (0-0.2) Neutrophils % (Manual) 79 % (16-70) Band Neutrophils % 11 % (0-6) Lymphocytes % 6 % (9-44) Neutrophils # (Manual) 28.5 TH/MM3 (1.8-7.7) Metamyelocytes 2 % (0-1) Myelocytes 1 % (0-0) Urine Protein 100 mg/dL (NEG-TRACE) Urine Occult Blood SMALL (NEG) Urine RBC 4-9 /hpf (0-3) Urine WBC 15-19 /hpf (0-5) Urine WBC Clumps FEW (NONE) Red Blood Count 3.79 MIL/MM3 (4.00-5.30) Hemoglobin 10.3 GM/DL (11.6-15.3) Hematocrit 31.1 % (35.0-46.0) Chloride Level 108 MEQ/L (98-107) Test 05/19/17 05:10 White Blood Count 13.3 TH/MM3 (4.0-11.0) Red Blood Count 3.65 MIL/MM3 (4.00-5.30) Hemoglobin 9.7 GM/DL (11.6-15.3) Hematocrit 30.2 % (35.0-46.0) Mean Corpuscular Hemoglobin 26.5 PG (27.0-34.0) Neutrophils (%) (Auto) 74.8 % (16.0-70.0) Neutrophils # (Auto) 10.0 TH/MM3 (1.8-7.7) Hospital Course Pt presented with fever and chills as noted above. She met criteria for severe sepsis and was started on broad-spectrum antibiotics. She quickly defervesced and her white count improved dramatically over the hospital course. She was noted to have slight anemia which was believed to be primarily hemodilutional given the amount of IV fluid she received. Clinically she was much improved and had no recurrence of fever. Blood cultures did grow out a gram-positive cocci in 1 bottle and urine culture was noted for a pansensitive Proteus. We'll have home health follow her at home for nursing care and physical therapy as well as for the repeat CBC to be done in 2-3 days. He'll follow with Dr. Garcia next week as scheduled. She was noted to have slight hypoxia with exertion and home oxygen was provided at 2 L/min via NC during exertion and when sleeping. This was d/w pt and her nurse, Junior. Pt Condition on Discharge: Stable Discharge Disposition: Disch w/ Home Health Serv Discharge Instructions DIET: Follow Instructions for: Heart Healthy Diet Speech Therapy-Diet Recommends: Regular Activities you can perform: Weight Bearing as Zane Other Activity Instructions: FALL PRECAUTIONS Follow up Referrals: PCP Follow-up New Orders: CBC WITH DIFF New Medications: Albuterol 18 GM Inh (Ventolin Hfa 18 GM Inh) 90 Mcg/Act Aer 2 PUFF INH Q4-6H PRN SHORTNESS OF BREATH #1 Ref 0 INHALER Oxygen (O2) (Oxygen (O2)) Device 2 LITER GENOVEVA.CANULA Oxygen Concentrator Portable Gaseous 2 L/min via Nasal Canula Continuous For 99 months Prevent Hypoxemia #2 CYLINDER Doxycycline Hyclate (Doxycycline Hyclate) 100 Mg Cap 100 MG PO BID SEPSIS #14 CAP Sulfamethoxazole-Trimethoprim (Sulfamethoxazole-Trimethoprim) 800-160 Mg Tab 1 TAB PO Q12HR SEPSIS #14 TAB Continued Medications: Clonidine (Clonidine) 0.1 Mg Tab 0.1 MG PO BID Blood Pressure Management #60 Ref 0 TAB Losartan (Losartan) 50 Mg Tab 50 MG PO BID Blood Pressure Management #30 Ref 0 TAB Lovastatin (Lovastatin) 20 Mg Tab 20 MG PO DAILY Cholesterol Management #30 Ref 0 TAB Omeprazole (Omeprazole) 20 Mg Tab 20 MG PO DAILY #30 Ref 0 TAB Verapamil ER 24 HR (Verapamil ER 24 HR) 240 Mg Tab 240 MG PO HS #30 Ref 0 TAB James Levy MD PhD May 19, 2017 08:11
[2017-05-19] MEDS: LOSARTAN 50 MG TAB PO SCH (08:12)
[2017-05-19] MEDS: PRAVASTATIN SOD 20 MG TAB PO SCH (08:12)
[2017-05-19] MEDS: ENOXAPARIN SODIUM 30 MG/0.3 ML SYRINGE SQ SCH (08:13)
--- NOTE | 2017-05-19 08:16 | HHI.PR ---
Subjective Remarks Overall feeling fine. Desires discharge home. No more fevers. Tolerating oral intake. Ambulating to restroom. She did have some shortness of breath last night when she had a large bowel movement but that has improved. Denies chest pain. Skin cellulitic rash much improved. Objective Vitals GENERAL: No acute distress, alert and oriented. Quite energetic. SKIN: Minimal erythema distal left pretibial aspect, much improved. No open wounds. HEAD: Normocephalic. EYES: No scleral icterus. No injection or drainage. NECK: Supple, trachea midline. No JVD or lymphadenopathy. CARDIOVASCULAR: Regular rate and rhythm with an occasional dropped beat. No murmurs, gallops, or rubs. RESPIRATORY: Breath sounds equal bilaterally. No accessory muscle use. No crackles. GASTROINTESTINAL: Abdomen soft, non-tender, nondistended. Bowel sounds normal MUSCULOSKELETAL: No cyanosis, or edema. Moves all extremities well Vital Signs Date Time Temp Pulse Resp B/P Pulse Ox O2 Delivery O2 Flow Rate FiO2 05/19/17 07:54 92 Nasal Cannula 2.00 05/19/17 07:30 92 Nasal Cannula 2.00 05/19/17 04:24 96 Nasal Cannula 2.00 05/19/17 04:00 97.3 64 20 158/78 95 05/19/17 00:00 99.7 60 20 140/65 95 05/18/17 20:00 99.5 84 21 184/60 93 05/18/17 19:11 97 Nasal Cannula 2.00 05/18/17 16:00 99.5 102 19 130/100 92 05/18/17 12:00 97.6 67 17 164/64 93 05/18/17 05/18/17 05/19/17 15:00 23:00 07:00 Intake Total 740 ml 240 ml Balance 740 ml 240 ml Intake Oral 240 ml 240 ml IV Total 500 ml # Voids 2 3 # Bowel Movements 0 0 Result Diagram: 05/19/1710 05/18/17 0528 Imaging Last [address] 05/17/17 5107 Signed Impressions: Service Date/Time: Wednesday, May 17, 2017 15:32 - CONCLUSION: 1. No evidence of acute infarct, hemorrhage, mass or edema. 2. Mild ventriculomegaly Vargas Juarez MD Chest X-Ray 05/17/17 1574 Signed Impressions: Service Date/Time: Wednesday, May 17, 2017 15:17 - CONCLUSION: No acute disease. Vargas Juarez MD Urinary Catheter: No Vascular Central Line Catheter: No A/P Problem List: (1) Sepsis Status: Acute Plan: Likely associated with underlying urinary infection and for the cellulitic process in the left lower extremity. Clinically much improved. Final culture still pending but lab reports pansensitive Proteus from the urine. We'll await blood culture results. Convert to oral antibiotics, specifically doxycycline and Bactrim. Hopefully discharge home later today. (2) Lactic acidosis Status: Acute Plan: Likely associated with the septic process ongoing. Lactic acid normalized with antibiotics and IV fluid. (3) UTI (urinary tract infection) Status: Acute Plan: As above. (4) GERD (gastroesophageal reflux disease) Status: Chronic Plan: Continue PPI. (5) HTN (hypertension) Status: Chronic Plan: Continue home medication. It is unclear if she is actually taking her triamterene/HCTZ based on outpatient refill history. Last few diastolic values have been in the 60s so we'll monitor closely. (6) Emphysema of lung Status: Chronic Plan: Duo neb as needed. (7) Anemia Status: Acute Plan: Likely hemodilutional. Vital signs are stable. We'll repeat hemoglobin as an outpatient in a few days. No signs of bleeding. Discharge Planning Hopefully discharge home later today with home health. Problem Qualifiers (1) Sepsis: Qualified Code: A41.9 - Sepsis, due to unspecified organism (2) UTI (urinary tract infection): Qualified Code: N30.00 - Acute cystitis without hematuria (3) HTN (hypertension): Qualified Code: I10 - Essential hypertension James Levy MD PhD May 19, 2017 08:16
[2017-05-19] MEDS ORDERED: SULFAMETHOXAZOLE-TRIMETHOPRIM DS 800-160 MG TAB PO SCH (09:00)
[2017-05-19] MEDS ORDERED: DOXYCYCLINE HYCLATE 100 MG TAB PO SCH (09:00)
[2017-05-19] MEDS ORDERED: OXYGENDME NAS.CANULA (13:14)
[2017-05-19 15:51] LABS: BLOOD, URINE NEG (NEG); GLUCOSE,URINE NEG (NEG); KETONE, URINE NEG (NEG); NITRITE,URINE NEG (NEG)
[2017-05-19 16:13] LABS: METHOD OF COLLECTION VOIDED; URINE COLOR STRAW (YELLW/STRAW)
[2017-05-19 16:14] LABS: BACTERIA, URINE OCC /hpf; COMMENT (UR) CULTURE INDICATED; CULTURE IF INDICATED CULTURE INDICATED; SQUAMOUS EPITHELIAL CELL URINE 0-5 /hpf (0-5)
[2017-05-19] MEDS ORDERED: PHARMACY ORDERED LAB ONE (22:45)
== END 2017-05-19 17:20 | disposition home health service (06) | DRG 872 ==
LOC: PHED 14:20 → PHEDA 15:56 → PH3B 17:13
PROVIDERS: ADMIT Family Medicine; ATTEND Family Medicine
DX: A41.9 Sepsis, unspecified organism (principal); E87.2 Acidosis; N39.0 Urinary tract infection, site not specified; L03.116 Cellulitis of left lower limb; K21.9 Gastro-esophageal reflux disease without esophagitis; I10 Essential (primary) hypertension; J43.9 Emphysema, unspecified; D64.9 Anemia, unspecified; E78.5 Hyperlipidemia, unspecified; M51.36 Other intervertebral disc degeneration, lumbar region; F17.210 Nicotine dependence, cigarettes, uncomplicated
CPT/HCPCS: 70450; 71010; 80048; 80053; 81001; 82140; 82550; 83605; 84443; 84484; 85007; 85025; 85027; 85610; 85730; 86403; 87040; 87077; 87086; 87186; 87205; 93005; 94620; 94640; 94664; 96374; 96375; J0692; J1580; J1650; J3370; J3480; J7030; J7050

== ENCOUNTER → 2017-06-29 | Day surgery (SDC) | payer MEDICARE ==
[~2017-06-29] VITALS: Ht 157.5 cm; Wt 68.0 kg
[~2017-06-29] MED LIST changes: +ACETAMINOPHEN 325 MG TAB PO PRN; +CALCTAB94 PO; -CLON-352 PO; +CLON0.1T PO; +DO NOT ADM ANY ANTICOAGULANT DRUGS PRN; -DYAZ PO; -FLON0.053; +FLUT1SPR14 NASAL; +HYALURONIDASE/LIDOCAINE/EPINEPHRINE/BUPIVACAINE 6 ML SYR RIGHT EYE ONE; +LIDOCAINE HCL 1% PF 30 ML VIAL ONE; -LOVA1TAB47 PO; +LOVA20TA PO; +MIDAZOLAM HCL 2 MG/2 ML VIAL ONE; +NON-500T13 PO; -NORC7.5T PO; +PROPARACAINE HCL 0.5% OPHT SOLN 15 ML BTL RIGHT EYE ONE; +PROPOFOL 200 MG/20 ML AMP ONE; +SODIUM CHLORID 0.9% 500 ML INJ 500 ML ONE; +TOBRAMYCIN/DEXAMETHASONE OPTH OINT 3.5 GM TUBE ONE; +TRIA37.5 PO; -VITA-13 PO; -VITA10004 PO; +VITA100064 PO; +VITA500T4 PO; -Z.0.CPM; -Z.0.WALKERFRONT
[2017-06-29] MEDS: CYCLOPENTOLATE HCL 1% OPHT SOLN 2 ML BTL RIGHT EYE SCH ×4 (08:06→08:21)
[2017-06-29] MEDS: PHENYLEPHRINE HCL 10% OPTH SOLN 5 ML BTL RIGHT EYE SCH ×4 (08:06→08:21)
[2017-06-29] MEDS: FLURBIPROFEN 0.03% OPHT SOLN 2.5 ML BTL RIGHT EYE SCH ×4 (08:06→08:21)
[2017-06-29] MEDS: TROPICAMIDE 1% OPHT SOLN 15 ML BTL RIGHT EYE SCH ×4 (08:06→08:21)
[2017-06-29 08:08] VITALS: PULSE 72
[2017-06-29 08:55] VITALS: PULSE 61
[2017-06-29 09:30] VITALS: TEMP 98.1
[2017-06-29 09:50] VITALS: BP 172/68; PULSE 65; RESP 14; O2SAT 93
--- NOTE | 2017-06-29 12:31 | MP ---
cc: OSCAR MCCARTHY M.D. DATE OF SURGERY: 06/29/2017 [facility] #[id number] PREOPERATIVE DIAGNOSIS Visually significant cataract, right eye. POSTOPERATIVE DIAGNOSIS Visually significant cataract, right eye. OPERATION Phacoemulsification with posterior chamber lens implantation, right eye. SURGEON Oscar Mccarthy MD ANESTHESIA Retrobulbar with MAC. COMPLICATIONS None. PROCEDURE After informed consent was obtained, the patient was brought into the operative suite and placed on appropriate monitors by the Anesthesia Service. The patient had received a prior retrobulbar injection of local anesthetic by the Anesthesia Service in the holding area. The patient's operative eye was then prepped and draped in the usual sterile fashion. A wire lid speculum was placed. A paracentesis incision was made in the peripheral cornea with a 1 mm ila keratome. The anterior chamber was filled with viscoelastic. The anterior chamber was then entered through a stepped, clear corneal incision using a sharp 3 mm ila keratome. A circular tear capsulorrhexis was then made with a bent needle cystitome. Following hydrodissection of the lens nucleus with balanced saline, phaco-emulsification of the nucleus was performed using a modified chopping technique. The remaining cortex was removed with irrigation/aspiration. The prior two procedures were both performed using the handpieces of the [employer] phaco unit. The capsular bag was then filled with viscoelastic. The intraocular lens was then injected into the capsular bag and positioned. The type of intraocular lens and its power can be found elsewhere in this chart. The remaining viscoelastic was then removed from the anterior chamber with the IA handpiece. The anterior chamber was reformed with balanced saline. The wound was then closed securely with stromal hydration. It was found to be watertight to an intraocular pressure of at least 30 mmHg by palpation. A small amount of balanced salt solution was then removed through the paracentesis site and the intraocular pressure at the end of the case was approximately 20 by palpation. All drapes were then removed. TobraDex ointment was then placed in the eye, which was closed beneath a semi-pressure patch dressing. The patient tolerated this procedure well and left the operating room awake and alert. The patient is to follow-up in my office in the morning. MD MARIE Waite/TLL /9:44 AM /12:25 PM
== END | disposition home or self-care (01) ==
LOC: PHSDC 07:04
PROVIDERS: ATTEND Optometrist Occupational Vision
DX: H25.811 Combined forms of age-related cataract, right eye (principal)
CPT/HCPCS: 00142; 66984; J2250; J7040; V2632

== ENCOUNTER 2018-02-01 17:34 | Inpatient (IN) | payer MEDICARE ==
[~2018-02-01] VITALS: Ht 157.5 cm; Wt 73.8 kg
[~2018-02-01 17:34] MED LIST changes: -ACETAMINOPHEN 325 MG TAB PO PRN; -DO NOT ADM ANY ANTICOAGULANT DRUGS PRN; -HYALURONIDASE/LIDOCAINE/EPINEPHRINE/BUPIVACAINE 6 ML SYR RIGHT EYE ONE; -LIDOCAINE HCL 1% PF 30 ML VIAL ONE; -MIDAZOLAM HCL 2 MG/2 ML VIAL ONE; -OMEP20TA PO; +OMEP20TA93 PO; -PROPARACAINE HCL 0.5% OPHT SOLN 15 ML BTL RIGHT EYE ONE; -PROPOFOL 200 MG/20 ML AMP ONE; -SODIUM CHLORID 0.9% 500 ML INJ 500 ML ONE; -TOBRAMYCIN/DEXAMETHASONE OPTH OINT 3.5 GM TUBE ONE
[2018-02-01 17:37] VITALS: BP 194/65; PULSE 89; RESP 18; TEMP 99.6; O2SAT 95
--- NOTE | 2018-02-01 18:15 | PD ---
HPI Chief Complaint: Skin Problem Time Seen by Provider: 17:41 Travel History International Travel<30 days: No Contact w/Intl Traveler<30days: No Traveled to known affect area: No History of Present Illness HPI 82-year-old female arrives by EMS. She was unable to ambulate today. 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 She reports chronic pain every day however it is much worse today and she is unable to walk because of it. No injury or excessive use is reported. The patient reports completing a course of antibiotics for cellulitis one week prior. The patient has undergone total knee arthroplasty on that side with a revision.She's had no fever. The patient describes the pain about the right knee as somewhat superficial in location. PFSH Past Medical History Arthritis: Yes Cancer: No Cardiovascular Problems: Yes (ABDOMINAL AORTIC ECTASIA, PREMATURE ATRIAL CONTRACTIONS) High Cholesterol: Yes Congestive Heart Failure: No Cerebrovascular Accident: No Diabetes: No Endocrine: No Gastrointestinal Disorders: Yes (GERD, DIVERTICULOSIS) GERD: Yes Genitourinary: No Hepatitis: No Hiatal Hernia: No Hypertension: Yes Immune Disorder: No Implanted Vascular Access Dvce: Yes Kidney Stones: No Medical other: No Musculoskeletal: Yes (ARTHRITIS, ACUTE MEDICAL MENISCUS TEAR) Neurologic: Yes (TREMOR) Psychiatric: No Reproductive: No Respiratory: Yes (ALLERGIES, PULMONARY EMPHYSEMA, RESTRICTIVE LUNG DISEASE) Immunizations Current: Yes Seizures: No Thyroid Disease: No Ulcer: No Influenza Vaccination: Yes ?: Not Past Surgical History Abdominal Surgery: No AICD: No Cardiac Surgery: No Ear Surgery: No Endocrine Surgery: No Eye Surgery: Yes (RIGHT CATARACT EXTRACTION WITH LENS IMPLANT) Genitourinary Surgery: No Gynecologic Surgery: No Joint Replacement: Yes (11/03/14 RIGHT TOTAL KNEE) Oral Surgery: Yes (TONSILLECTOMY, ADENOIDECTOMY) Pacemaker: No Tonsillectomy: Yes Other Surgery: Yes (COLONOSCOPY, EGD) Social History Alcohol Use: No Tobacco Use: No Substance Use: No Allergies-Medications (Allergen,Severity, Reaction): Coded Allergies: cefuroxime (Verified Allergy, Intermediate, Rash, 02/01/18) aspirin (Unverified Adverse Reaction, Intermediate, GI, 02/01/18) codeine (Unverified Adverse Reaction, Intermediate, HYPER, 02/01/18) morphine (Unverified Adverse Reaction, Unknown, states causes confusion, ) Reported Meds & Prescriptions Reported Meds & Active Scripts Active Reported Kls [place] (Fluticasone Propionate (Nasal)) 50 Mcg/Actuation Spr 2 [place] NASAL DAILY Calcium 600 (Calcium Carbonate) 600 Mg Calcium (1500 Mg) Tab 1,500 Mg PO Vitamin D3 (Cholecalciferol) 1,000 Unit Tab 2,000 Units PO DAILY Vitamin B-12 (Cyanocobalamin) 500 Mcg Tab 500 Mcg PO DAILY Triamterene-Hydrochlorothiazide 37.5-25 Mg Tab 1 Tab PO DAILY Non-Aspirin Pain Relief ES (Acetaminophen) 500 Mg Tab 500 Mg PO Q4-6H PRN Verapamil ER 24 HR (Verapamil HCl) 240 Mg Tab 240 Mg PO BID Omeprazole 20 Mg Tab 20 Mg PO BID Lovastatin 20 Mg Tab 20 Mg PO DAILY Losartan (Losartan Potassium) 50 Mg Tab 50 Mg PO BID Clonidine (Clonidine HCl) 0.1 Mg Tab 0.1 Mg PO BID Review of Systems Except as stated in HPI: all other systems reviewed are Neg General / Constitutional: No: Fever Physical Exam Narrative GENERAL: 82 yo F, NAD, speaking full sentences Vital Signs Date Time Temp Pulse Resp B/P (MAP) Pulse Ox O2 Delivery O2 Flow Rate FiO2 02/01/18 17:37 99.6 89 18 194/65 (108) 95 SKIN: There is an area of cellulitis overlying the right patella with fairly clear margins approximately 10 cm in maximum diameter with dry skin overlying erythematous base. It is not markedly tender. The knee is generally warmer on the right side. There is minimal pitting edema of the lower extremities which is symmetric bilaterally. There is also minimal erythema with a nonspecific distribution involving both lower extremities, all which appears chronic in nature. HEAD: Atraumatic. Normocephalic. EYES: Pupils equal and round. No scleral icterus. No injection or drainage. ENT: No nasal bleeding or discharge. Mucous membranes pink and moist. NECK: Trachea midline. No JVD. CARDIOVASCULAR: Regular rate and rhythm. RESPIRATORY: No accessory muscle use. Clear to auscultation. Breath sounds equal bilaterally. GASTROINTESTINAL: Abdomen soft, non-tender, nondistended. Hepatic and splenic margins not palpable. MUSCULOSKELETAL: Extremities without clubbing, cyanosis, or edema. No obvious deformities. NEUROLOGICAL: Awake and alert. No obvious cranial nerve deficits. Motor grossly within normal limits. Five out of 5 muscle strength in the arms and legs. Normal speech. PSYCHIATRIC: Appropriate mood and affect; insight and judgment normal. Data Data Last Documented VS Vital Signs Date Time Temp Pulse Resp B/P (MAP) Pulse Ox O2 Delivery O2 Flow Rate FiO2 02/01/18 20:38 89 16 180/84 (116) 95 Room Air 02/01/18 17:37 99.6 Orders Orders Knee, Complete (4vws) (02/01/18 17:46) Ice/Cold Pack (02/01/18 17:46) Basic Metabolic Panel (Bmp) (02/01/18 17:46) Complete Blood Count With Diff (02/01/18 17:46) Iv Access Insert/Monitor (02/01/18 17:46) Potassium Chloride (Kcl) (02/01/18 18:45) Lidocai-Epi 1%-1:100,000 Inj (Xylocaine- (02/01/18 19:15) Vancomycin Inj (Vancomycin Inj) (02/01/18 19:15) Synovial Fluid Glucose (02/01/18 19:08) Synovial Fluid Crystals (02/01/18 19:08) Synovial Fl Cell Count + Diff (02/01/18 19:08) Synovial Fluid Total Protein (02/01/18 19:08) Fluid Culture And Gram Stain (02/01/18 19:08) Aztreonam Inj (Azactam Inj) (02/01/18 22:30) Labs Laboratory Tests Test 02/01/18 18:05 02/01/18 20:02 White Blood Count 24.2 TH/MM3 Red Blood Count 4.36 MIL/MM3 Hemoglobin 12.0 GM/DL Hematocrit 36.0 % Mean Corpuscular Volume 82.6 FL Mean Corpuscular Hemoglobin 27.6 PG Mean Corpuscular Hemoglobin Concent 33.4 % Red Cell Distribution Width 13.6 % Platelet Count 219 TH/MM3 Mean Platelet Volume 9.4 FL Neutrophils (%) (Auto) 81.2 % Lymphocytes (%) (Auto) 8.5 % Monocytes (%) (Auto) 6.3 % Eosinophils (%) (Auto) 0.1 % Basophils (%) (Auto) 3.9 % Neutrophils # (Auto) 19.7 TH/MM3 Lymphocytes # (Auto) 2.1 TH/MM3 Monocytes # (Auto) 1.5 TH/MM3 Eosinophils # (Auto) 0.0 TH/MM3 Basophils # (Auto) 0.9 TH/MM3 CBC Comment AUTO DIFF Differential Comment AUTO DIFF CONFIRMED Blood Urea Nitrogen 16 MG/DL Creatinine 1.00 MG/DL Random Glucose 105 MG/DL Calcium Level 9.3 MG/DL Sodium Level 137 MEQ/L Potassium Level 3.2 MEQ/L Chloride Level 104 MEQ/L Carbon Dioxide Level 25.1 MEQ/L Anion Gap 8 MEQ/L Estimat Glomerular Filtration Rate 53 ML/MIN Synovial Fluid Color YELLOW Synovial Fluid Appearance MARKED Synovial Fluid WBC 06475 /MM3 Synovial Fluid RBC 1940 /MM3 Synovial Fluid Neutrophils 89 % Synovial Fluid Lymphocytes 11 % Synovial Fluid Crystals NONE MDM Medical Decision Making Medical Screen Exam Complete: Yes Emergency Medical Condition: Yes Medical Record Reviewed: Yes Differential Diagnosis cellulitis, septic arthritis, abscess, traumatic bone injury, hardware migration Narrative Course CBC & BMP Diagram 02/01/18 18:05 Calcium Level 9.3 Synovial fluid analysis reveals 33,000 WBCs 89% neutrophils The synovial fluid aspirate was a yellow opaque purulent fluid. The patient was started on aztreonam and Vanco. The case was discussed with Dr. Pavon of the [facility] hospitalist service. The patient will be admitted to the main site for continued antibiotic therapy and orthopedics consultation. The area of cellulitis was clearly marginated and lateral to the site of insertion such that the skin at the site of insertion was clear with no sign of infection. Procedures Procedure Narrative Synovial fluid aspiration: The right knee was sterilized with iodine solution soaked 4 x 4 sterile gauze. For blue towels were draped about the knee percent lidocaine with epinephrine was aspirated and injected into the superficial tissues of the right knee. 27- gauge syringe was replaced with a 18-gauge syringe and position into the synovial space of the right knee where 30 cc of opaque yellow aspirate was collected. Patient reported mild to moderate improvement. About 5cc of lidocaine with epinephrine was injected into the joint space. Needle was removed and a Band-Aid was placed. Patient tolerated the procedure well. Diagnosis Primary Impression: Septic arthritis of knee, right Qualified Codes: M00.9 - Pyogenic arthritis, unspecified Admitting Information Admitting Physician Requests: Admit Chente Rubio MD Feb 01, 2018 18:15
[2018-02-01 18:24] VITALS: BP 173/64; PULSE 75; RESP 18; O2SAT 93
[2018-02-01 18:26] LABS: BICARBONATE 25.1 MEQ/L (21.0-32.0); CALCIUM 9.3 MG/DL (8.5-10.1)
[2018-02-01 18:28] LABS: AUTOMATED NEUTROPHIL # 19.7 TH/MM3 (1.8-7.7); BASOPHIL # 0.9 TH/MM3 (0-0.2); BASOPHIL % 3.9 % (0.0-2.0); EOSINOPHIL % 0.1 % (0.0-4.0); LYMPH % 8.5 % (9.0-44.0); LYMPHOCYTE # 2.1 TH/MM3 (1.0-4.8); MEAN CELL VOLUME 82.6 FL (80.0-100.0); MEAN CORPUSCULAR HEMOGLOBIN 27.6 PG (27.0-34.0); MEAN CORPUSCULAR HGB CONC 33.4 % (32.0-36.0); MEAN PLATELET VOLUME 9.4 FL (7.0-11.0); MONO % 6.3 % (0.0-8.0); MONOCYTE # 1.5 TH/MM3 (0-0.9); NEUT % 81.2 % (16.0-70.0); PLATELET COUNT 219 TH/MM3 (150-450); RED BLOOD COUNT 4.36 MIL/MM3 (4.00-5.30); RED CELL DISTRIBUTION WIDTH 13.6 % (11.6-17.2); WHITE BLOOD COUNT 24.2 TH/MM3 (4.0-11.0)
[2018-02-01] MEDS ORDERED: POTASSIUM CHLORIDE 20 MEQ CONTROLLED RELEASE TAB PO ONE (18:45)
--- NOTE | 2018-02-01 18:59 | RADRPT ---
EXAM DATE/TIME: 02/01/2018 18:04 [facility] COMPARISON: KNEE RIGHT LTD (1 OR 2 VWS), November 03, 2014, 9:17. INDICATIONS : No known injury. Pain and swelling starting this morning. MEDICAL HISTORY : Hypertension. Cardiovascular disease SURGICAL HISTORY : Total knee replacement, right. ENCOUNTER: Initial ACUITY: 1 day PAIN SCORE: 8/10 LOCATION: Right Knee FINDINGS: Patient has a right total knee arthroplasty that appears intact and normally aligned. Some hypertroph ic bone is seen anterolaterally. There is a moderate, nonspecific joint effusion. CONCLUSION: Nonspecific joint effusion. No evidence of fracture, subluxation or hardware failure/loosening. Kishor Harding MD on February 01, 2018 at 18:55 Board Certified Radiologist. This report was verified electronically.
[2018-02-01] MEDS ORDERED: VANCOMYCIN INJ 1,000 MG in SODIUM CHLOR 0.9% 250 ML INJ 250 ML IV ONE (19:15)
[2018-02-01] MEDS ORDERED: LIDOCAINE 1%/EPINEPHrine 1:100,000 SOLN 20 ML VIAL INFIL ONE (19:15)
[2018-02-01 20:38] VITALS: BP 180/84; PULSE 89; RESP 16; O2SAT 95
[2018-02-01 20:50] LABS: WBC, SYNOVIAL FLUID 33260 /MM3 (0-200)
[2018-02-01] MEDS ORDERED: AZTREONAM INJ 2,000 MG in SODIUM CHLORIDE 0.9% INJ 100 ML IV ONE (22:30)
[2018-02-01] MEDS ORDERED: LACTULOSE SYRUP 20 GM/30 ML CUP PO PRN (23:30)
[2018-02-01] MEDS ORDERED: ONDANSETRON HCL 4 MG/2 ML VIAL IVP PRN (23:30)
[2018-02-01] MEDS ORDERED: ENOXAPARIN SODIUM 40 MG/0.4 ML SYRINGE SQ SCH (23:30)
[2018-02-01] MEDS ORDERED: NALOXONE HCL 0.4 MG/ML AMP IV PUSH PRN (23:30)
[2018-02-01] MEDS ORDERED: Vancomycin Consult Pharmacy 1 EA OTHER SCH (23:30)
[2018-02-01] MEDS ORDERED: BISACODYL 10 MG SUPP RECTAL PRN (23:30)
[2018-02-01] MEDS ORDERED: TEMAZEPAM 15 MG CAP PO PRN (23:30)
[2018-02-01] MEDS ORDERED: MAGNESIUM HYDROXIDE SUSP 30 ML CUP PO PRN (23:30)
[2018-02-01] MEDS ORDERED: ACETAMINOPHEN 500 MG CPLT PO PRN (23:30)
[2018-02-01] MEDS ORDERED: SENNOSIDES 8.6 MG TAB PO PRN (23:30)
[2018-02-01] MEDS ORDERED: SODIUM CHLORIDE 0.9% FLUSH 10 ML FLUSH IV FLUSH PRN (23:30)
--- NOTE | 2018-02-01 23:38 | HHI.HP ---
HPI Service [facility] Hospitalists Primary Care Physician Everette Garcia MD Admission Diagnosis Septic Arthritis R Knee Chief Complaint: unable to ambulate severe pain to right knee Travel History International Travel<30 Days: No Contact w/Intl Traveler <30 Da: No Traveled to Known Affected Are: No History of Present Illness 82-year-old female arrives by EMS. She was unable to ambulate today. 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 She reports chronic pain every day however it is much worse today and she is unable to walk because of it. No injury or excessive use is reported. The patient reports completing a course of antibiotics for cellulitis one week prior. The patient has undergone total knee arthroplasty on that side with a revision.She's had no fever. The patient describes the pain about the right knee as somewhat superficial in location. Any movement has pain ,and is slightly warm as compared to left ,[place] [id number] and knee was fluid obtained and showed large amount WBC and cloudy consistent with infective joint will admit consult ortho may need intervention. also start broad spectrum antibiotics. Review of Systems Musculoskeletal: COMPLAINS OF: Joint pain, Joint Swelling Past Family Social History Past Medical History djd hypertension,hyperlipidemia,gerd,tremor,copd Past Surgical History rt cataract,rt total knee 2014 with revision ,Tand A Reported Medications Kls Aller-Seamus (Fluticasone Propionate (Nasal)) 50 Mcg/Actuation Spr 2 [place] NASAL DAILY Calcium 600 (Calcium Carbonate) 600 Mg Calcium (1500 Mg) Tab 1,500 Mg PO Vitamin D3 (Cholecalciferol) 1,000 Unit Tab 2,000 Units PO DAILY Vitamin B-12 (Cyanocobalamin) 500 Mcg Tab 500 Mcg PO DAILY Triamterene-Hydrochlorothiazide 37.5-25 Mg Tab 1 Tab PO DAILY Non-Aspirin Pain Relief ES (Acetaminophen) 500 Mg Tab 500 Mg PO Q4-6H PRN Verapamil ER 24 HR (Verapamil HCl) 240 Mg Tab 240 Mg PO BID Omeprazole 20 Mg Tab 20 Mg PO BID Lovastatin 20 Mg Tab 20 Mg PO DAILY Losartan (Losartan Potassium) 50 Mg Tab 50 Mg PO BID Clonidine (Clonidine HCl) 0.1 Mg Tab 0.1 Mg PO BID Allergies: Coded Allergies: cefuroxime (Verified Allergy, Intermediate, Rash, 02/01/18) aspirin (Unverified Adverse Reaction, Intermediate, GI, 02/01/18) codeine (Unverified Adverse Reaction, Intermediate, HYPER, 02/01/18) morphine (Unverified Adverse Reaction, Unknown, states causes confusion, ) Social History NS,ND Physical Exam Vital Signs Vital Signs Date Time Temp Pulse Resp B/P (MAP) Pulse Ox O2 Delivery O2 Flow Rate FiO2 02/01/18 20:38 89 16 180/84 (116) 95 Room Air 02/01/18 18:24 75 18 173/64 (100) 93 Room Air 02/01/18 17:37 99.6 89 18 194/65 (108) 95 Physical Exam GENERAL: This is a well-nourished, well-developed patient, in no apparent distress. SKIN: No rashes, ecchymoses or lesions. right knee cellulitis overlying right patella erythema knee warm to touch HEAD: Atraumatic. Normocephalic. No temporal or scalp tenderness. EYES: Pupils equal round and reactive. Extraocular motions intact. No scleral icterus. No injection or drainage. ENT: Nose without bleeding, purulent drainage or septal hematoma. Throat without erythema, tonsillar hypertrophy or exudate. Uvula midline. Airway patent. NECK: Trachea midline. No JVD or lymphadenopathy. Supple, nontender, no meningeal signs. CARDIOVASCULAR: Regular rate and rhythm without murmurs, gallops, or rubs. RESPIRATORY: Clear to auscultation. Breath sounds equal bilaterally. No wheezes , rales, or rhonchi. GASTROINTESTINAL: Abdomen soft, non-tender, nondistended. No hepato-splenomegaly , or palpable masses. No guarding. MUSCULOSKELETAL: Extremities without clubbing, cyanosis, or edema. No joint tenderness, effusion, or edema noted. No calf tenderness. Negative Homans sign bilaterally. NEUROLOGICAL: Awake and alert. Cranial nerves II through XII intact. Motor and sensory grossly within normal limits. Five out of 5 muscle strength in all muscle groups. Normal speech. Laboratory Laboratory Tests Test 02/01/18 18:05 02/01/18 20:02 White Blood Count 24.2 Red Blood Count 4.36 Hemoglobin 12.0 Hematocrit 36.0 Mean Corpuscular Volume 82.6 Mean Corpuscular Hemoglobin 27.6 Mean Corpuscular Hemoglobin Concent 33.4 Red Cell Distribution Width 13.6 Platelet Count 219 Mean Platelet Volume 9.4 Neutrophils (%) (Auto) 81.2 Lymphocytes (%) (Auto) 8.5 Monocytes (%) (Auto) 6.3 Eosinophils (%) (Auto) 0.1 Basophils (%) (Auto) 3.9 Neutrophils # (Auto) 19.7 Lymphocytes # (Auto) 2.1 Monocytes # (Auto) 1.5 Eosinophils # (Auto) 0.0 Basophils # (Auto) 0.9 CBC Comment AUTO DIFF Differential Comment AUTO DIFF CONFIRMED Blood Urea Nitrogen 16 Creatinine 1.00 Random Glucose 105 Calcium Level 9.3 Sodium Level 137 Potassium Level 3.2 Chloride Level 104 Carbon Dioxide Level 25.1 Anion Gap 8 Estimat Glomerular Filtration Rate 53 Synovial Fluid Color YELLOW Synovial Fluid Appearance MARKED Synovial Fluid WBC 74804 Synovial Fluid RBC 1940 Synovial Fluid Neutrophils 89 Synovial Fluid Lymphocytes 11 Synovial Fluid Crystals NONE Date/Time Source Procedure Growth Status 02/01/18 20:02 Fluid Synovial Fluid Gram Stain Pending Received 02/01/18 20:02 Fluid Synovial Fluid Body Fluid Culture Pending Received Result Diagram: 02/01/18 1805 02/01/18 1805 Imaging Last 24 hours Impressions Knee X-Ray 02/01/18 1746 Signed Impressions: Service Date/Time: January 18:04 - CONCLUSION: Nonspecific joint effusion. No evidence of fracture, subluxation or hardware failure/loosening. Kishor Harding MD Course synovial fluid positive for infection ,cloudy fluid with increase in WBC Caprini VTE Risk Assessment Caprini VTE Risk Assessment: Mod/High Risk (score >= 2) Caprini Risk Assessment Model Point Value = 1 Point Value = 2 Point Value = 3 Point Value = 5 Age 41-60 Minor surgery BMI > 25 kg/m2 Swollen legs Varicose veins or History of unexplained or recurrent spontaneous Oral contraceptives or hormone replacement Sepsis (< 1 month) Serious lung disease, including pneumonia (< 1 month) Abnormal pulmonary function Acute myocardial infarction Congestive heart failure (< 1 month) History of inflammatory bowel disease Medical patient at bed rest Age 61-74 Arthroscopic surgery Major open surgery (> 45 min) Laparoscopic surgery (> 45 min) Malignancy Confined to bed (> 72 hours) Immobilizing plaster cast Central venous access Age >= 75 History of VTE Family history of VTE Factor V Leiden Prothrombin [id number] Lupus anticoagulant Anticardiolipin antibodies Elevated serum homocysteine Heparin-induced thrombocytopenia Other congenital or acquired thrombophilia Stroke (< 1 month) Elective arthroplasty Hip, pelvis, or leg fracture Acute spinal cord injury (< 1 month) Prophylaxis Regimen Total Risk Factor Score Risk Level Prophylaxis Regimen 0-1 Low Early ambulation 2 Moderate Order ONE of the following: *Sequential Compression Device (SCD) *Heparin 5000 units SQ BID 3-4 Higher Order ONE of the following medications: *Heparin 5000 units SQ TID *Enoxaparin/Lovenox 40 mg SQ daily (WT < 150 kg, CrCl > 30 mL/min) *Enoxaparin/Lovenox 30 mg SQ daily (WT < 150 kg, CrCl > 10-29 mL/min) *Enoxaparin/Lovenox 30 mg SQ BID (WT < 150 kg, CrCl > 30 mL/min) AND/OR *Sequential Compression Device (SCD) 5 or more Highest Order ONE of the following medications: *Heparin 5000 units SQ TID (Preferred with Epidurals) *Enoxaparin/Lovenox 40 mg SQ daily (WT < 150 kg, CrCl > 30 mL/min) *Enoxaparin/Lovenox 30 mg SQ daily (WT < 150 kg, CrCl > 10-29 mL/min) *Enoxaparin/Lovenox 30 mg SQ BID (WT < 150 kg, CrCl > 30 mL/min) AND *Sequential Compression Device (SCD) Assessment and Plan Problem List: (1) Septic arthritis of knee, right ICD Codes: M00.9 - Pyogenic arthritis, unspecified Status: Acute Plan: will start vancomycin and azactam ortho consult (2) Leukocytosis ICD Codes: D72.829 - Elevated white blood cell count, unspecified Status: Acute Plan: related to infection follow up labs (3) HTN (hypertension) ICD Codes: I10 - HTN (hypertension) Status: Chronic Plan: continue home medications Assessment and Plan further plan as case develops Code Status full Discussed Condition With patient Physician Certification 2 Midnight Certification Type: Admission for Inpatient Services Order for Inpatient Services The services are ordered in accordance with Medicare regulations or non- Medicare payer requirements, as applicable. In the case of services not specified as inpatient-only, they are appropriately provided as inpatient services in accordance with the 2-midnight benchmark. Estimated LOS (days): 3 3 days is the estimated time the patient will need to remain in the hospital, assuming treatment plan goals are met and no additional complications. Post-Hospital Plan: Not yet determined Problem Qualifiers (1) Septic arthritis of knee, right: Qualified Codes: M00.9 - Pyogenic arthritis, unspecified Hayes Sena MD Feb 01, 2018 23:38
[2018-02-02] VITALS (8 sets, daily range): BP systolic 155–170; BP diastolic 60–74; PULSE 70–83; RESP 16–22; TEMP 97.6–100.1; O2SAT 92–97
[2018-02-02] MEDS: traMADol HCL 50 MG TAB PO PRN (02:32)
[2018-02-02 07:17] LABS: AUTOMATED NEUTROPHIL # 14.7 TH/MM3 (1.8-7.7); BASOPHIL % 0.2 % (0.0-2.0); HEMATOCRIT 33.6 % (35.0-46.0); HEMOGLOBIN 11.2 GM/DL (11.6-15.3); LYMPH % 11.8 % (9.0-44.0); LYMPHOCYTE # 2.1 TH/MM3 (1.0-4.8); MEAN CELL VOLUME 83.2 FL (80.0-100.0); MEAN CORPUSCULAR HEMOGLOBIN 27.7 PG (27.0-34.0); MEAN CORPUSCULAR HGB CONC 33.2 % (32.0-36.0); MEAN PLATELET VOLUME 8.6 FL (7.0-11.0); MONOCYTE # 1.3 TH/MM3 (0-0.9); PLATELET COUNT 186 TH/MM3 (150-450); RED BLOOD COUNT 4.04 MIL/MM3 (4.00-5.30); RED CELL DISTRIBUTION WIDTH 14.3 % (11.6-17.2); WHITE BLOOD COUNT 18.2 TH/MM3 (4.0-11.0)
[2018-02-02 07:53] LABS: ALBUMIN 3.1 GM/DL (3.4-5.0); AST (GOT) 14 U/L (15-37); BICARBONATE 26.6 MEQ/L (21.0-32.0); BLOOD UREA NITROGEN 19 MG/DL (7-18); CALCIUM 8.9 MG/DL (8.5-10.1); CHLORIDE 106 MEQ/L (98-107); CREATININE 0.93 MG/DL (0.50-1.00); GLOMERULAR FILTRATION RATE 58 ML/MIN (>89); GLUCOSE,RANDOM 84 MG/DL (74-106); SODIUM (NA) 140 MEQ/L (136-145)
[2018-02-02 07:54] LABS: ALT (GPT) 13 U/L (10-53)
[2018-02-02 07:56] LABS: ALKALINE PHOSPHATASE 73 U/L (45-117); TOTAL BILIRUBIN ADULT 0.6 MG/DL (0.2-1.0); TOTAL PROTEIN 6.9 GM/DL (6.4-8.2)
[2018-02-02] MEDS: AZTREONAM INJ 1,000 MG in SODIUM CHLORIDE 0.9% INJ 100 ML IV SCH ×5 (08:00→23:28)
[2018-02-02] MEDS ORDERED: GENTAMICIN SULFATE 80 MG/2 ML VIAL ONE (08:52)
[2018-02-02] MEDS: FLUTICASONE PROPIONATE 50 MCG/ACT 16 GM NASAL SPRAY NASAL SCH (09:00)
[2018-02-02] MEDS: SODIUM CHLORIDE 0.9% FLUSH 10 ML FLUSH IV FLUSH SCH ×2 (09:00→21:00)
[2018-02-02] MEDS: CHOLECALCIFEROL (VIT D3) 1000 UNIT TAB PO SCH (09:10)
[2018-02-02] MEDS: TRIAMTERENE/HCTZ 37.5 MG/25 MG TAB PO SCH (09:10)
[2018-02-02] MEDS: VERAPAMIL HCL 240 MG SUSTAINED RELEASE TAB PO SCH ×2 (09:10→21:14)
[2018-02-02] MEDS: LOSARTAN 50 MG TAB PO SCH ×2 (09:10→22:36)
[2018-02-02] MEDS: PANTOPRAZOLE SOD 20 MG DELAYED RELEASE TAB PO SCH ×2 (09:11→21:14)
[2018-02-02] MEDS: DOCUSATE SODIUM 50 MG/SENNA 8.6 MG TAB PO SCH ×2 (09:11→21:14)
[2018-02-02] MEDS: cloNIDine HCL 0.1 MG TAB PO SCH ×2 (09:11→21:14)
[2018-02-02] MEDS: CYANOCOBALAMIN 1,000 MCG TAB PO SCH (09:11)
[2018-02-02] MEDS: PRAVASTATIN SOD 20 MG TAB PO SCH (09:11)
[2018-02-02] MEDS ORDERED: RESP: ALBUTEROL 2.5 MG/3 ML NEB (SCH) ONE (10:34)
[2018-02-02] MEDS ORDERED: VANCOMYCIN HCL 1000 MG VIAL ONE ×2 (10:38→11:21)
[2018-02-02] MEDS ORDERED: RESP: ALBUTEROL 2.5 MG/3 ML NEB (SCH) INH ONE (11:00)
[2018-02-02] MEDS: SODIUM CHLOR 0.9% 1000 ML INJ 1,000 ML IV SCH ×2 (11:20→21:20)
[2018-02-02] MEDS ORDERED: ENOX40P SQ (11:27)
[2018-02-02] MEDS ORDERED: HYDR-3288 PO (11:28)
[2018-02-02] MEDS ORDERED: Post-op Orders (for Pharmacy) XX ONE (11:30)
[2018-02-02] MEDS ORDERED: HYDROmorphone HCL PF 2 MG/ML VIAL IV PUSH PRN (11:30)
[2018-02-02] MEDS ORDERED: VANCOMYCIN INJ 1,000 MG in SODIUM CHLOR 0.9% 250 ML INJ 250 ML IV SCH (11:30)
[2018-02-02] MEDS ORDERED: diphenhydrAMINE HCL 50 MG/ML VIAL IV PUSH PRN (11:30)
[2018-02-02] MEDS ORDERED: ONDANSETRON HCL 4 MG/2 ML VIAL IVP PRN (11:30)
--- NOTE | 2018-02-02 11:52 | MB ---
cc: Jignesh Toney MD DATE: 02/02/2018 REASON FOR CONSULTATION: Right knee infection. HISTORY OF PRESENT ILLNESS: The patient is an 82-year-old female who presents to [facility] Emergency Room with complaints of pain, swelling and redness about the right knee. She states she has had some chronic pain in the knee, but it had gotten significantly worse the day that she presents to the emergency room. She is unable to stand, walk and ambulate. She reports completing a course of antibiotics for cellulitis 1 week prior. She has undergone a previous total knee arthroplasty by the undersigned back in early 2014. She had an early postoperative infection and underwent irrigation and debridement with polyethylene exchange in 11/2014. The patient has done well from that point and I have not seen her in followup. She has had no followups with me since then and this is the first time I have any reports that she was not doing well in regards to her knee. She denies any falls or trauma to her knee. Her 2 daughters are at the bedside with her. Her white blood cell count is 24,000 and a knee aspiration from the fluid in the emergency room shows a white count of 33,000. She was started on broad spectrum antibiotics from the emergency room. PAST MEDICAL HISTORY: Positive for degenerative joint disease, hypertension, hyperlipidemia, gastric reflux, COPD. PAST SURGICAL HISTORY: Cataract, total knee arthroplasty in 2014 with subsequent irrigation and debridement surgery in 2014. MEDICATIONS: Include: 1. Fluticasone. 2. Calcium. 3. Hydrochlorothiazide. 4. Omeprazole. 5. Lovastatin. 6. Losartan. 7. Clonidine. ALLERGIES: INCLUDE CEFUROXIME, ASPIRIN, CODEINE AND MORPHINE. SOCIAL HISTORY: Nonsmoker, nondrinker. REVIEW OF SYSTEMS: Negative for 12 systems other than as noted in the HPI. PHYSICAL EXAMINATION: VITAL SIGNS: Temperature 99.6, pulse 89, respirations 18, blood pressure 190/60. GENERAL: The patient is a well-nourished female, awake, alert, in no acute distress, lying in bed. HEENT: Normocephalic, atraumatic. Pupils round. Extraocular muscles intact. NECK: Supple. LUNGS: Clear. HEART: Regular rate and rhythm. ABDOMEN: Soft, nontender. EXTREMITIES: Right knee has a well-healed surgical incision over the anterior aspect. She has swelling in the knee joint, slight erythema. She has pain with passive motion of the right knee. She can flex her ankle and toes distally and no calf swelling. LABORATORY DATA: White blood cell count was 24.2. Hemoglobin is 12, hematocrit is 36, platelets 219. BUN is 16, creatinine is 1.0, glucose 105. X-RAYS: X-rays of the right knee reveal an intact total knee arthroplasty. Aspiration of the right knee joint shows white blood cell count of 33,000 with 89% neutrophils. 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 PLAN: I have discussed the diagnosis with the patient and the patient's daughter. We spoke with treatment options including options of nonoperative treatment and surgery. Surgery would consist of either irrigation and debridement with polyethylene exchange versus resection arthroplasty and placement of antibiotic spacer. Due to the severe nature of the infection and the chronicity, at this point I would recommend removal of the prosthesis and placement of antibiotic spacer. I think this would yield the patient the best chance of a successful outcome, although infection is very difficult to treat in this clinical setting. The risks of surgery were discussed which include but are not limited to anesthesia, bleeding, continued infection, damage to nerves and blood vessels, fracture, continued pain and stiffness. The patient and family members have asked appropriate questions which have all been answered. The patient does wish to proceed with surgery as outlined above, to include irrigation and debridement, removal of prosthesis and placement of an antibiotic spacer. Written consent has been obtained. The surgical site has been marked. MD DARIAN Trotter/LOKI , 11:19 AM , 11:51 AM
[2018-02-02] MEDS ORDERED: GLYCOPYRROLATE 1 MG/5 ML SYRINGE IV PUSH ONE (12:00)
[2018-02-02] MEDS ORDERED: NEOSTIGMINE 5 MG/5 ML SYRINGE IV PUSH ONE (12:00)
[2018-02-02] MEDS ORDERED: PROPOFOL 200 MG/20 ML AMP IV ONE (12:00)
[2018-02-02] MEDS ORDERED: ONDANSETRON HCL 4 MG/2 ML VIAL IV ONE (12:00)
[2018-02-02] MEDS ORDERED: ROCURONIUM INJ 50 MG/5 ML SYRINGE IV PUSH ONE (12:00)
[2018-02-02] MEDS ORDERED: LIDOCAINE HCL 1% PF 5 ML SYRINGE OTHER ONE (12:00)
[2018-02-02] MEDS ORDERED: ACETAMINOPHEN 1000 MG/100 ML 100 ML IV ONE (12:13)
[2018-02-02] MEDS ORDERED: DO NOT ADM ANY ANTICOAGULANT DRUGS PRN (13:10)
[2018-02-02] MEDS ORDERED: *MEPERIDINE 25 MG INJ VIAL PERIprocedural Use ONLY ONE (13:13)
--- NOTE | 2018-02-02 13:17 | MP ---
cc: Jignesh Toney MD DATE OF OPERATION: 02/02/2018 DATE OF PROCEDURE: 02/02/2015. PREOPERATIVE DIAGNOSIS: Right knee arthroplasty with septic arthritis and infection. POSTOPERATIVE DIAGNOSIS: Right knee arthroplasty with septic arthritis and infection. PROCEDURE PERFORMED: Irrigation and debridement of right knee with removal of total knee arthroplasty, placement of antibiotic spacer. SURGEON: Jignesh Toney MD GROUP EXERCISE CLASS INSTRUCTOR: Andrea Garcia PA-C. ANESTHESIA: General. ESTIMATED BLOOD LOSS: 200 mL. COMPLICATIONS: None. IMPLANTS USED: [employer]. JUSTIFICATION: This patient is an 82-year-old female who had undergone previous right total knee arthroplasty in 2014. She developed acute onset of severe pain, swelling of the right knee with warmth. She presented to [facility] Emergency Room. Aspiration showed evidence of 33,000 white blood cell count and her blood count showed a white blood cell count of 24,000. Clinically, she has severe infection of the right knee. She was counseled as to the risks, benefits and alternatives of the above-named proposed surgical procedure. She did wish to proceed with the surgery as outlined above. PROCEDURE IN DETAIL: Written consent was obtained. The patient was identified by name, taken to the operating room and placed supine on the operating table. General anesthesia was administered as well as 1 gram of IV Ancef. A well-padded tourniquet was placed on the right thigh, the right lower extremity prepped and draped using isopropyl, Hibiclens solution and DuraPrep solution. After a timeout was performed, the tourniquet was inflated. A longitudinal incision was made over the anterior aspect of the right knee. A medial parapatellar arthrotomy was performed and a copious amount of purulent fluid was noted. Deep cultures were obtained. A complete debridement and synovectomy was performed. A flexible osteotome was used to remove both the femoral and tibial components along with the polyethylene insert. An oscillating saw was used to remove the patellar insert. A curette was used to curette the bones and the knee was again thoroughly irrigated with normal saline pulse lavage, antibiotic impregnated solution. On the back table the Exactech antibiotic cement was mixed with gentamicin and vancomycin. The cement was then placed along the tibia and femur and the size medium Ex[employer] antibiotic spacer components were placed along the tibia and femur. The leg was then placed into extension and the cement was allowed to harden. At this point the arthrotomy incision was closed with a #1 PDS suture along with the lateral release. The knee was again thoroughly irrigated with sterile saline solution and the subcutaneous layer was closed with 2-0 Vicryl suture. The skin was closed with bernardino. Sterile dressing was applied. The patient tolerated the procedure well. with no intraoperative complications noted. Andrea Garcia, physician service center assistant certified, was present during the entire procedure to include patient positioning and the procedure itself. The medical necessity of the physician service center assistant was indicated in this case due to the complex procedure. He assisted with appropriate manipulation of the leg and also retraction of muscle, tendon, bone, nerve and neurovascular structures. He assisted with removal of the prosthesis and also implantation of the prosthetic antibiotic spacer. The patient will require a planned staged reconstruction at a later date if the infection can be eradicated. MD DARIAN Trotter/LOKI , 12:43 PM , 01:17 PM
--- NOTE | 2018-02-02 13:25 | PD.ORT.PN ---
Subjective Post Op Day #: 0 Objective Vitals Vital Signs Date Time Temp Pulse Resp B/P (MAP) Pulse Ox O2 Delivery O2 Flow Rate FiO2 02/02/18 09:22 Nasal Cannula 2 02/02/18 08:00 98.1 71 22 161/69 (99) 97 02/02/18 06:10 100.1 76 20 170/74 (106) 94 02/02/18 01:49 99.3 83 20 165/74 (104) 96 02/02/18 01:22 02/02/18 00:17 73 16 169/61 (97) 97 Nasal Cannula 2.00 02/01/18 20:38 89 16 180/84 (116) 95 Room Air 02/01/18 18:24 75 18 173/64 (100) 93 Room Air 02/01/18 17:37 99.6 89 18 194/65 (108) 95 I/O 02/01/18 02/01/18 02/01/18 02/02/18 02/02/18 02/02/18 07:00 15:00 23:00 07:00 15:00 23:00 Intake Total 250 ml 100 ml 800 ml Output Total 150 ml 200 ml Balance 250 ml -50 ml 600 ml Intake Oral 0 ml IV Total 250 ml 100 ml Other 800 ml Output Urine Total 150 ml Estimated Blood Loss 200 ml # Bowel Movements 0 Result Diagram: 02/02/18 0645 02/02/18 0645 Imaging Last 24 hours Impressions Knee X-Ray 02/01/18 1746 Signed Impressions: Service Date/Time: January 18:04 - CONCLUSION: Nonspecific joint effusion. No evidence of fracture, subluxation or hardware failure/loosening. Kishor Harding MD Assessment & Plan Ortho Post Op Day #: 0 Problem List: Assessment and Plan S/p I&D R TKA with removal of prosthesis and placement of abx spacer POD#0 NWB, maintain knee immobilizer daily dressing changes lovenox IV vanco consult placed for ID PICC line ordered follow cultures Jignesh Garcia Feb 02, 2018 13:25
[2018-02-02] MEDS ORDERED: *HYDROmorphone PF 0.5 MG/0.5 ML PERIprocedure ONLY ONE (13:32)
--- NOTE | 2018-02-02 14:14 | RADRPT ---
EXAM DATE/TIME: 02/02/2018 14:14 [place] COMPARISON: No previous studies available for comparison. INDICATIONS : Post operative for antibiotic spacer placements. MEDICAL HISTORY : None. SURGICAL HISTORY : Total knee replacement, right. ENCOUNTER: Initial ACUITY: 1 day PAIN SCORE: Non-responsive. LOCATION: Right knee. FINDINGS: The patient is status post right knee replacement with prostheses adequate in position. CONCLUSION: Status post right knee replacement with prostheses adequate in position. Gaetano Rand MD on February 02, 2018 at 14:10 Board Certified Radiologist. This report was verified electronically.
[2018-02-02] MEDS ORDERED: VANCOMYCIN INJ 1,150 MG in SODIUM CHLOR 0.9% 250 ML INJ 250 ML IV SCH (17:00)
--- NOTE | 2018-02-02 17:04 | MB ---
cc: John Melgar MD DATE: 02/02/2018 REQUESTING PHYSICIAN: Dr. Toney. REASON FOR CONSULTATION: Right TKA infection. Status post incision and drainage and removal of joint and placement of antibiotic spacer. HISTORY OF PRESENT ILLNESS: This is an 82-year-old white female who developed sudden inability to ambulate after having had problems with pain in the right knee. The patient has a history of right knee replacement in 2014. She was evaluated by the orthopedic physician and she underwent aspiration of the right knee, which showed 33,000 white cells; 1940 red cells. Differential revealed 89% neutrophils. Culture was taken and Gram stain showed few white cells and no organisms. The patient underwent removal of total knee arthroplasty today. She was noted to have copious amount of purulent fluid. Deep cultures were obtained. The results are pending. Synovectomy and debridement was performed. The patient is currently in no distress. She denies fever or chills or nausea. She denies injury prior to development of the severe pain in the knee. She was previously evaluated and given a course of antibiotics, which she completed about a week ago. Consultation requested for antibiotic management for infection. The patient had a temperature of 100.1 degrees early this morning. White blood cell count peripherally was 24.2 yesterday and today it is 18.2. PAST MEDICAL HISTORY: Degenerative joint disease, hyperlipidemia, hypertension, gastroesophageal reflux disease, COPD, history of right cataract removal, history of right total knee replacement and revision in 2014. ALLERGIES: CEFUROXIME, CODEINE, ASPIRIN, AND MORPHINE. MEDICATIONS: 1. Vancomycin. 2. Lovenox. 3. Colace. 4. Theragran. 5. Vassar 7.5. 6. Dilaudid. 7. Vitamin D3. 8. Catapres. 9. Vitamin B12. 10. Cozaar. 11. Pravachol. 12. Maxzide. 13. Verapamil 14. Flonase. 15. Protonix. 16. Ale-Colace. 17. Aztreonam. SOCIAL HISTORY: No tobacco, no alcohol, no illicit drugs. FAMILY HISTORY: Noncontributory. REVIEW OF SYSTEMS: Negative on a 10-point review except for right knee pain. PHYSICAL EXAMINATION: GENERAL: This is a well-developed female who is in no acute distress. She is awake and alert and oriented. VITAL SIGNS: Temperature 98.6, blood pressure 161/69, respirations 14, heart rate 94. HEENT: The head is atraumatic. Extraocular movements grossly intact. Pupils reactive to light. No icterus. Oropharynx moist mucosa. No visible lesions. NECK: Supple. No adenopathy. No swelling. LUNGS: Clear breath sounds bilaterally. HEART: Regular S1, S2. No murmurs, rubs or gallops. ABDOMEN: Bowel sounds present. Soft, no tenderness appreciated. RECTAL: Not performed. EXTREMITIES: The right knee has a surgical dressing in place. The dressing was not removed for inspection at this time. Mild swelling of the leg below the knee. SKIN: No diffuse rash. NEUROLOGIC: No gross focal findings. PSYCHIATRIC: The patient is calm and cooperative. LABORATORY DATA: WBC 18.2, platelets 186, 81% neutrophils, 11% lymphocytes, hemoglobin 11.2. Creatinine 0.93, BUN 19, sodium 140. AST 14, ALT 13. IMPRESSION: 1. Infected right total knee arthroplasty. Wound culture pending. 2. Leukocytosis secondary to infection. 3. The patient is status post removal of hardware and antibiotic spacer placement. RECOMMENDATIONS: 1. Continue vancomycin. 2. Continue aztreonam. 3. Monitor wound culture. 4. Antibiotic adjustments depending on the culture results. Anticipate that the patient will require 4-6 weeks of IV antibiotics for treatment and then retest fluid aspirate from the knee to determine timing of replacement of hardware in the future. Thank you for this consultation. I will follow the patient's progress. MD BRANDON Juarez/FRANCISCO JAVIER , 03:54 PM , 05:03 PM JOANNA
--- NOTE | 2018-02-02 17:39 | HHI.PR ---
Subjective Remarks S/p I&D R TKA with removal of prosthesis and placement of abx spacer with Dr. Toney 02/02 Patient offers no complaints at this time Objective Vitals Vital Signs Date Time Temp Pulse Resp B/P (MAP) Pulse Ox O2 Delivery O2 Flow Rate FiO2 02/02/18 16:31 92 Nasal Cannula 2.00 02/02/18 13:45 68 14 161/69 (99) 94 Nasal Cannula 3 02/02/18 13:30 68 18 156/68 (97) 94 Nasal Cannula 3 02/02/18 13:15 75 20 178/73 (108) 93 Nasal Cannula 3 02/02/18 13:10 98.6 80 20 174/72 (106) 96 Nasal Cannula 3 02/02/18 09:22 Nasal Cannula 2 02/02/18 08:00 98.1 71 22 161/69 (99) 97 02/02/18 06:10 100.1 76 20 170/74 (106) 94 02/02/18 01:49 99.3 83 20 165/74 (104) 96 02/02/18 01:22 02/02/18 00:17 73 16 169/61 (97) 97 Nasal Cannula 2.00 02/01/18 20:38 89 16 180/84 (116) 95 Room Air 02/01/18 18:24 75 18 173/64 (100) 93 Room Air 02/01/18 17:37 99.6 89 18 194/65 (108) 95 02/02/18 02/02/18 02/03/18 14:59 22:59 06:59 Intake Total 800 ml Output Total 200 ml Balance 600 ml Other 800 ml Estimated Blood Loss 200 ml Result Diagram: 02/02/1845 02/02/18 0645 Other Results Laboratory Tests Test 02/01/18 18:05 02/01/18 20:02 02/02/18 06:45 White Blood Count 24.2 TH/MM3 18.2 TH/MM3 Red Blood Count 4.36 MIL/MM3 4.04 MIL/MM3 Hemoglobin 12.0 GM/DL 11.2 GM/DL Hematocrit 36.0 % 33.6 % Mean Corpuscular Volume 82.6 FL 83.2 FL Mean Corpuscular Hemoglobin 27.6 PG 27.7 PG Mean Corpuscular Hemoglobin Concent 33.4 % 33.2 % Red Cell Distribution Width 13.6 % 14.3 % Platelet Count 219 TH/MM3 186 TH/MM3 Mean Platelet Volume 9.4 FL 8.6 FL Neutrophils (%) (Auto) 81.2 % 81.0 % Lymphocytes (%) (Auto) 8.5 % 11.8 % Monocytes (%) (Auto) 6.3 % 7.0 % Eosinophils (%) (Auto) 0.1 % 0.0 % Basophils (%) (Auto) 3.9 % 0.2 % Neutrophils # (Auto) 19.7 TH/MM3 14.7 TH/MM3 Lymphocytes # (Auto) 2.1 TH/MM3 2.1 TH/MM3 Monocytes # (Auto) 1.5 TH/MM3 1.3 TH/MM3 Eosinophils # (Auto) 0.0 TH/MM3 0.0 TH/MM3 Basophils # (Auto) 0.9 TH/MM3 0.0 TH/MM3 CBC Comment AUTO DIFF DIFF FINAL Differential Comment AUTO DIFF CONFIRMED Blood Urea Nitrogen 16 MG/DL 19 MG/DL Creatinine 1.00 MG/DL 0.93 MG/DL Random Glucose 105 MG/DL 84 MG/DL Calcium Level 9.3 MG/DL 8.9 MG/DL Sodium Level 137 MEQ/L 140 MEQ/L Potassium Level 3.2 MEQ/L 3.9 MEQ/L Chloride Level 104 MEQ/L 106 MEQ/L Carbon Dioxide Level 25.1 MEQ/L 26.6 MEQ/L Anion Gap 8 MEQ/L 7 MEQ/L Estimat Glomerular Filtration Rate 53 ML/MIN 58 ML/MIN Synovial Fluid Color YELLOW Synovial Fluid Appearance MARKED Synovial Fluid WBC 99016 /MM3 Synovial Fluid RBC 1940 /MM3 Synovial Fluid Neutrophils 89 % Synovial Fluid Lymphocytes 11 % Synovial Fluid Crystals NONE Total Protein 6.9 GM/DL Albumin 3.1 GM/DL Alkaline Phosphatase 73 U/L Aspartate Amino Transf (AST/SGOT) 14 U/L Alanine Aminotransferase (ALT/SGPT) 13 U/L Total Bilirubin 0.6 MG/DL Imaging Last 24 hours Impressions Knee X-Ray 02/01/18 6029 Signed Impressions: Service Date/Time: January 18:04 - CONCLUSION: Nonspecific joint effusion. No evidence of fracture, subluxation or hardware failure/loosening. Kishor Harding MD Objective Remarks GENERAL: This is a well-nourished, well-developed patient, in no apparent distress. CARDIOVASCULAR: Regular rate and rhythm RESPIRATORY: Clear to auscultation. Breath sounds equal bilaterally. GASTROINTESTINAL: Abdomen soft, non-tender, nondistended. Normal active bowel sounds MUSCULOSKELETAL: Extremities without clubbing, cyanosis, or edema. NEURO: Awake and alert. Moves all ext x4 Procedures S/p I&D R TKA with removal of prosthesis and placement of abx spacer with Dr. Toney 02/02 A/P Problem List: (1) Septic arthritis of knee, right ICD Codes: M00.9 - Pyogenic arthritis, unspecified Status: Acute Plan: started on vancomycin and azactam ortho consult, appreciate input S/p I&D R TKA with removal of prosthesis and placement of abx spacer with Dr. Toney 02/02 NWB, maintain knee immobilizer daily dressing changes consult placed for ID PICC line ordered follow cultures DVT prophylaxis with Lovenox (2) Leukocytosis ICD Codes: D72.829 - Elevated white blood cell count, unspecified Status: Acute Plan: see above (3) HTN (hypertension) ICD Codes: I10 - HTN (hypertension) Status: Chronic Plan: continue home medications which include: Losartan 50 mg daily, Clonidine 0.1 mg PO BID and Triamterene/HCTZ Assessment and Plan Patient examined. Assessment and plan formulated with Maryann Gomez PA-C. I agree with the above. - Pt underwent removal of knee prosthesis today with Dr. Toney. Placement of spacer. - IV vancomycin per ID - follow culture results - anticipate discharge to SNF in 2-4 days. Problem Qualifiers (1) Septic arthritis of knee, right: Qualified Codes: M00.9 - Pyogenic arthritis, unspecified Maryann Gomez Feb 02, 2018 17:39 Jonathan Castillo DO Feb 02, 2018 21:42
[2018-02-02] MEDS ORDERED: VANCOMYCIN 1,000 MG/NS 250 ML IV SCH ×2 (18:00)
[2018-02-02] MEDS ORDERED: ZOLPIDEM TARTRATE 5 MG TAB PO PRN (21:00)
[2018-02-02] MEDS: ACETAMINOPHEN/HYDROcodone 325 MG/7.5 MG TAB PO PRN (23:29)
[2018-02-03] VITALS (8 sets, daily range): BP systolic 144–170; BP diastolic 58–88; PULSE 69–87; RESP 17–19; TEMP 97.8–99.8; O2SAT 93–98
[2018-02-03 05:40] LABS: HEMATOCRIT 24.5 % (35.0-46.0); HEMOGLOBIN 8.2 GM/DL (11.6-15.3); MEAN CELL VOLUME 83.4 FL (80.0-100.0); MEAN CORPUSCULAR HEMOGLOBIN 27.9 PG (27.0-34.0); MEAN CORPUSCULAR HGB CONC 33.4 % (32.0-36.0); MEAN PLATELET VOLUME 8.6 FL (7.0-11.0); PLATELET COUNT 143 TH/MM3 (150-450); RED BLOOD COUNT 2.94 MIL/MM3 (4.00-5.30); RED CELL DISTRIBUTION WIDTH 14.8 % (11.6-17.2); WHITE BLOOD COUNT 13.6 TH/MM3 (4.0-11.0)
[2018-02-03 05:48] LABS: BICARBONATE 27.1 MEQ/L (21.0-32.0); CALCIUM 8.3 MG/DL (8.5-10.1); CREATININE 0.86 MG/DL (0.50-1.00)
--- NOTE | 2018-02-03 08:59 | PD.ORT.PN ---
Subjective Subjective Remarks Awake alert resting comfortably Objective Vitals Vital Signs Date Time Temp Pulse Resp B/P (MAP) Pulse Ox O2 Delivery O2 Flow Rate FiO2 02/03/18 04:00 98.5 76 18 161/65 (97) 94 02/03/18 04:00 Nasal Cannula 2.00 02/03/18 00:00 99.8 73 18 163/75 (104) 94 02/03/18 00:00 Nasal Cannula 2.00 02/02/18 20:14 95 Nasal Cannula 2.00 02/02/18 20:00 Nasal Cannula 2.00 02/02/18 20:00 98.0 71 18 155/65 (95) 96 02/02/18 16:31 92 Nasal Cannula 2.00 02/02/18 16:00 97.6 70 20 159/60 (93) 94 02/02/18 13:45 68 14 161/69 (99) 94 Nasal Cannula 3 02/02/18 13:30 68 18 156/68 (97) 94 Nasal Cannula 3 02/02/18 13:15 75 20 178/73 (108) 93 Nasal Cannula 3 02/02/18 13:10 98.6 80 20 174/72 (106) 96 Nasal Cannula 3 02/02/18 09:22 Nasal Cannula 2 I/O 02/02/18 02/02/18 02/02/18 02/03/18 02/03/18 02/03/18 07:00 15:00 23:00 07:00 15:00 23:00 Intake Total 100 ml 800 ml 240 ml 240 ml Output Total 150 ml 200 ml 400 ml Balance -50 ml 600 ml 240 ml -160 ml Intake Oral 0 ml 240 ml 240 ml IV Total 100 ml Other 800 ml Output Urine Total 150 ml 400 ml Estimated Blood Loss 200 ml # Bowel Movements 0 Result Diagram: 02/03/18 0522 02/03/18 0522 Imaging Last 24 hours Impressions Knee X-Ray 02/01/18 1746 Signed Impressions: Service Date/Time: January 18:04 - CONCLUSION: Nonspecific joint effusion. No evidence of fracture, subluxation or hardware failure/loosening. Kishor Harding MD Objective Remarks Right lower extremity: Clean dry dressings intact. Knee immobilizer in place. Intact sensation distally with active dorsiflexion plantar flexion of foot Assessment & Plan Assessment and Plan S/p I&D R TKA with removal of prosthesis and placement of abx spacer POD#1 NWB, maintain knee immobilizer daily dressing changes lovenox IV vanco consult placed for ID PICC line ordered follow cultures Kaushik Moreau Jr. Feb 03, 2018 08:59
[2018-02-03] MEDS: FLUTICASONE PROPIONATE 50 MCG/ACT 16 GM NASAL SPRAY NASAL SCH (09:00)
[2018-02-03] MEDS: VERAPAMIL HCL 240 MG SUSTAINED RELEASE TAB PO SCH ×2 (10:08→21:44)
[2018-02-03] MEDS: TRIAMTERENE/HCTZ 37.5 MG/25 MG TAB PO SCH (10:08)
[2018-02-03] MEDS: CHOLECALCIFEROL (VIT D3) 1000 UNIT TAB PO SCH (10:08)
[2018-02-03] MEDS: CYANOCOBALAMIN 1,000 MCG TAB PO SCH (10:08)
[2018-02-03] MEDS: PANTOPRAZOLE SOD 20 MG DELAYED RELEASE TAB PO SCH ×2 (10:08→21:44)
[2018-02-03] MEDS: PRAVASTATIN SOD 20 MG TAB PO SCH (10:08)
[2018-02-03] MEDS: DOCUSATE SODIUM 50 MG/SENNA 8.6 MG TAB PO SCH ×2 (10:09→21:44)
[2018-02-03] MEDS: LOSARTAN 50 MG TAB PO SCH ×2 (10:09→21:44)
[2018-02-03] MEDS: cloNIDine HCL 0.1 MG TAB PO SCH ×2 (10:09→21:44)
[2018-02-03] MEDS: AZTREONAM INJ 1,000 MG in SODIUM CHLORIDE 0.9% INJ 100 ML IV SCH ×3 (10:10→23:00)
[2018-02-03] MEDS: ACETAMINOPHEN/HYDROcodone 325 MG/7.5 MG TAB PO PRN ×2 (10:24→21:45)
--- NOTE | 2018-02-03 10:42 | HHI.PR ---
Subjective Remarks No new complaints tolerated breakfast and lunch, reports no pain at this time Objective Vitals Vital Signs Date Time Temp Pulse Resp B/P (MAP) Pulse Ox O2 Delivery O2 Flow Rate FiO2 02/03/18 04:00 98.5 76 18 161/65 (97) 94 02/03/18 04:00 Nasal Cannula 2.00 02/03/18 00:00 99.8 73 18 163/75 (104) 94 02/03/18 00:00 Nasal Cannula 2.00 02/02/18 20:14 95 Nasal Cannula 2.00 02/02/18 20:00 Nasal Cannula 2.00 02/02/18 20:00 98.0 71 18 155/65 (95) 96 02/02/18 16:31 92 Nasal Cannula 2.00 02/02/18 16:00 97.6 70 20 159/60 (93) 94 02/02/18 13:45 68 14 161/69 (99) 94 Nasal Cannula 3 02/02/18 13:30 68 18 156/68 (97) 94 Nasal Cannula 3 02/02/18 13:15 75 20 178/73 (108) 93 Nasal Cannula 3 02/02/18 13:10 98.6 80 20 174/72 (106) 96 Nasal Cannula 3 Result Diagram: 02/03/18 0502/03/18 05 Other Results Laboratory Tests Test 02/01/18 18:05 02/01/18 20:02 02/02/18 06:45 02/03/18 05:22 White Blood Count 24.2 TH/MM3 18.2 TH/MM3 13.6 TH/MM3 Red Blood Count 4.36 MIL/MM3 4.04 MIL/MM3 2.94 MIL/MM3 Hemoglobin 12.0 GM/DL 11.2 GM/DL 8.2 GM/DL Hematocrit 36.0 % 33.6 % 24.5 % Mean Corpuscular Volume 82.6 FL 83.2 FL 83.4 FL Mean Corpuscular Hemoglobin 27.6 PG 27.7 PG 27.9 PG Mean Corpuscular Hemoglobin Concent 33.4 % 33.2 % 33.4 % Red Cell Distribution Width 13.6 % 14.3 % 14.8 % Platelet Count 219 TH/MM3 186 TH/MM3 143 TH/MM3 Mean Platelet Volume 9.4 FL 8.6 FL 8.6 FL Neutrophils (%) (Auto) 81.2 % 81.0 % Lymphocytes (%) (Auto) 8.5 % 11.8 % Monocytes (%) (Auto) 6.3 % 7.0 % Eosinophils (%) (Auto) 0.1 % 0.0 % Basophils (%) (Auto) 3.9 % 0.2 % Neutrophils # (Auto) 19.7 TH/MM3 14.7 TH/MM3 Lymphocytes # (Auto) 2.1 TH/MM3 2.1 TH/MM3 Monocytes # (Auto) 1.5 TH/MM3 1.3 TH/MM3 Eosinophils # (Auto) 0.0 TH/MM3 0.0 TH/MM3 Basophils # (Auto) 0.9 TH/MM3 0.0 TH/MM3 CBC Comment AUTO DIFF DIFF FINAL Differential Comment AUTO DIFF CONFIRMED Blood Urea Nitrogen 16 MG/DL 19 MG/DL 20 MG/DL Creatinine 1.00 MG/DL 0.93 MG/DL 0.86 MG/DL Random Glucose 105 MG/DL 84 MG/DL 98 MG/DL Calcium Level 9.3 MG/DL 8.9 MG/DL 8.3 MG/DL Sodium Level 137 MEQ/L 140 MEQ/L 141 MEQ/L Potassium Level 3.2 MEQ/L 3.9 MEQ/L 4.1 MEQ/L Chloride Level 104 MEQ/L 106 MEQ/L 108 MEQ/L Carbon Dioxide Level 25.1 MEQ/L 26.6 MEQ/L 27.1 MEQ/L Anion Gap 8 MEQ/L 7 MEQ/L 6 MEQ/L Estimat Glomerular Filtration Rate 53 ML/MIN 58 ML/MIN 63 ML/MIN Synovial Fluid Color YELLOW Synovial Fluid Appearance MARKED Synovial Fluid WBC 42239 /MM3 Synovial Fluid RBC 1940 /MM3 Synovial Fluid Neutrophils 89 % Synovial Fluid Lymphocytes 11 % Synovial Fluid Crystals NONE Total Protein 6.9 GM/DL Albumin 3.1 GM/DL Alkaline Phosphatase 73 U/L Aspartate Amino Transf (AST/SGOT) 14 U/L Alanine Aminotransferase (ALT/SGPT) 13 U/L Total Bilirubin 0.6 MG/DL Imaging Last 24 hours Impressions Knee X-Ray 02/01/18 7285 Signed Impressions: Service Date/Time: January 18:04 - CONCLUSION: Nonspecific joint effusion. No evidence of fracture, subluxation or hardware failure/loosening. Kishor Harding MD Objective Remarks GENERAL: This is a well-nourished, well-developed patient, in no apparent distress. CARDIOVASCULAR: Regular rate and rhythm RESPIRATORY: Clear to auscultation. Breath sounds equal bilaterally. GASTROINTESTINAL: Abdomen soft, non-tender, nondistended. Normal active bowel sounds MUSCULOSKELETAL: Extremities without clubbing, cyanosis, or edema. NEURO: Awake and alert. Moves all ext x4 Procedures S/p I&D R TKA with removal of prosthesis and placement of abx spacer with Dr. 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 Toney early 2014. She had an early postoperative infection and underwent irrigation and debridement with polyethylene exchange in 11/2014. Since that point patient reports chronic pain in the knee, had gotten significantly worse the day that she presents to the emergency room. When patient presented to the Emergency Room she was complaints of pain, swelling and redness about the right knee. She was also unable to stand or ambulate. She reports completing a course of antibiotics for cellulitis 1 week prior. WBC on admission 24.2 -> 18.2 (02/02)-> 13.6 (02/03) started on vancomycin and Azactam ortho consult, appreciate input S/p I&D R TKA with removal of prosthesis and placement of abx spacer with Dr. Toney 02/02 NWB, maintain knee immobilizer daily dressing changes consult placed for ID, appreciate input Per ID: Continue vancomycin and aztreonam. Monitor wound culture, Antibiotic adjustments depending on the culture results. Anticipate that the patient will require 4-6 weeks of IV antibiotics Initial culture from synovial fluid growing Staphylococcus aureus Blood culture also growing growing Staphylococcus aureus Intra operative cultures pending Hgb 8.2 (02/03) Repeat CBC in AM DVT prophylaxis with Lovenox (2) Leukocytosis ICD Codes: D72.829 - Elevated white blood cell count, unspecified Status: Acute Plan: see above (3) HTN (hypertension) ICD Codes: I10 - HTN (hypertension) Status: Chronic Plan: continue home medications which include: Losartan 50 mg daily, Clonidine 0.1 mg PO BID and Triamterene/HCTZ Assessment and Plan Patient examined. Assessment and plan formulated with Maryann Stackpole PA-C. I agree with the above. Problem Qualifiers (1) Septic arthritis of knee, right: Qualified Codes: M00.9 - Pyogenic arthritis, unspecified Maryann Gomez Feb 03, 2018 10:42 Jonathan Castillo DO Feb 05, 2018 04:34
[2018-02-03] MEDS: VANCOMYCIN INJ 1,250 MG in SODIUM CHLOR 0.9% 250 ML INJ 250 ML IV SCH (12:05)
[2018-02-03] MEDS: ENOXAPARIN SODIUM 40 MG/0.4 ML SYRINGE SQ SCH (12:05)
[2018-02-03] MEDS: SODIUM CHLORIDE 0.9% FLUSH 10 ML FLUSH IV FLUSH SCH ×2 (12:06→21:00)
[2018-02-03] MEDS: SODIUM CHLOR 0.9% 1000 ML INJ 1,000 ML IV SCH ×2 (16:00→17:20)
[2018-02-03] MEDS: MULTIVITAMINS/MINERALS THERAPEUTIC TAB PO SCH (21:44)
[2018-02-03] MEDS: DOCUSATE SODIUM 100 MG CAP PO SCH (21:44)
[2018-02-04] VITALS (7 sets, daily range): BP systolic 120–160; BP diastolic 60–87; PULSE 64–80; RESP 17–20; TEMP 98.1–99.5; O2SAT 92–99
[2018-02-04 05:57] LABS: HEMATOCRIT 26.4 % (35.0-46.0); HEMOGLOBIN 8.7 GM/DL (11.6-15.3); MEAN CELL VOLUME 84.8 FL (80.0-100.0); MEAN CORPUSCULAR HEMOGLOBIN 27.9 PG (27.0-34.0); MEAN CORPUSCULAR HGB CONC 32.9 % (32.0-36.0); MEAN PLATELET VOLUME 9.2 FL (7.0-11.0); PLATELET COUNT 159 TH/MM3 (150-450); RED BLOOD COUNT 3.12 MIL/MM3 (4.00-5.30); WHITE BLOOD COUNT 13.6 TH/MM3 (4.0-11.0)
[2018-02-04 06:27] LABS: BICARBONATE 26.2 MEQ/L (21.0-32.0); CALCIUM 8.6 MG/DL (8.5-10.1); CREATININE 0.88 MG/DL (0.50-1.00)
--- NOTE | 2018-02-04 08:22 | PD.ORT.PN ---
Subjective Subjective Remarks Awake alert resting comfortably Objective Vitals Vital Signs Date Time Temp Pulse Resp B/P (MAP) Pulse Ox O2 Delivery O2 Flow Rate FiO2 02/04/18 04:00 Nasal Cannula 2.00 02/04/18 04:00 98.1 76 19 159/68 (98) 93 02/04/18 00:00 99.5 80 20 158/87 (110) 93 02/04/18 00:00 Nasal Cannula 2.00 02/03/18 20:00 Nasal Cannula 2.00 02/03/18 20:00 99.6 87 19 144/58 (86) 98 02/03/18 16:18 98.1 74 17 168/60 (96) 94 02/03/18 15:49 93 Nasal Cannula 2.00 02/03/18 12:18 98.3 75 17 170/59 (96) 93 02/03/18 12:07 95 Nasal Cannula 2.00 I/O 02/03/18 02/03/18 02/03/18 02/04/18 02/04/18 02/04/18 07:00 15:00 23:00 07:00 15:00 23:00 Intake Total 340 ml 2110 ml 240 ml Output Total 400 ml 600 ml Balance -60 ml 2110 ml -360 ml Intake Oral 240 ml 360 ml 240 ml IV Total 100 ml 1750 ml Output Urine Total 400 ml 600 ml # Voids 2 2 # Bowel Movements 1 0 Result Diagram: 02/04/18 0509 02/04/18 0509 Imaging Last 24 hours Impressions Knee X-Ray 02/01/18 1746 Signed Impressions: Service Date/Time: January 18:04 - CONCLUSION: Nonspecific joint effusion. No evidence of fracture, subluxation or hardware failure/loosening. Kishor Harding MD Objective Remarks Right lower extremity: Clean dry dressings intact. Knee immobilizer in place. Intact sensation distally with active dorsiflexion plantar flexion of foot Assessment & Plan Assessment and Plan S/p I&D R TKA with removal of prosthesis and placement of abx spacer POD#2 NWB, maintain knee immobilizer daily dressing changes lovenox IV vanco consult placed for ID PICC line ordered follow cultures Kaushik Moreau Jr. Feb 04, 2018 08:22
[2018-02-04] MEDS: FLUTICASONE PROPIONATE 50 MCG/ACT 16 GM NASAL SPRAY NASAL SCH (09:00)
[2018-02-04] MEDS: LOSARTAN 50 MG TAB PO SCH ×2 (09:55→21:28)
[2018-02-04] MEDS: AZTREONAM INJ 1,000 MG in SODIUM CHLORIDE 0.9% INJ 100 ML IV SCH ×3 (09:55→23:43)
[2018-02-04] MEDS: PANTOPRAZOLE SOD 20 MG DELAYED RELEASE TAB PO SCH ×2 (09:55→21:28)
[2018-02-04] MEDS: DOCUSATE SODIUM 50 MG/SENNA 8.6 MG TAB PO SCH ×2 (09:55→21:28)
[2018-02-04] MEDS: MULTIVITAMINS/MINERALS THERAPEUTIC TAB PO SCH ×2 (09:56→21:28)
[2018-02-04] MEDS: TRIAMTERENE/HCTZ 37.5 MG/25 MG TAB PO SCH (09:56)
[2018-02-04] MEDS: DOCUSATE SODIUM 100 MG CAP PO SCH ×2 (09:56→21:28)
[2018-02-04] MEDS: CHOLECALCIFEROL (VIT D3) 1000 UNIT TAB PO SCH (09:56)
[2018-02-04] MEDS: cloNIDine HCL 0.1 MG TAB PO SCH ×2 (09:56→21:31)
[2018-02-04] MEDS: VERAPAMIL HCL 240 MG SUSTAINED RELEASE TAB PO SCH ×2 (09:56→21:28)
[2018-02-04] MEDS: CYANOCOBALAMIN 1,000 MCG TAB PO SCH (09:57)
[2018-02-04] MEDS: SODIUM CHLORIDE 0.9% FLUSH 10 ML FLUSH IV FLUSH SCH ×2 (09:57→21:31)
[2018-02-04] MEDS: PRAVASTATIN SOD 20 MG TAB PO SCH (09:57)
[2018-02-04] MEDS: ENOXAPARIN SODIUM 40 MG/0.4 ML SYRINGE SQ SCH (13:02)
[2018-02-04] MEDS: VANCOMYCIN INJ 1,250 MG in SODIUM CHLOR 0.9% 250 ML INJ 250 ML IV SCH (13:03)
[2018-02-04] MEDS ORDERED: RESP: ALBUTEROL 2.5 MG/IPRATROPIUM 0.5 MG NEB (PRN) NEB (16:15)
--- NOTE | 2018-02-04 17:26 | RADRPT ---
EXAM DATE/TIME: 02/04/2018 16:38 [facility] COMPARISON: CHEST SINGLE AP, May 17, 2017, 15:17. INDICATIONS : Cough. MEDICAL HISTORY : None. SURGICAL HISTORY : Total knee replacement, right. ENCOUNTER: Initial ACUITY: 1 day PAIN SCORE: 0/10 LOCATION: Bilateral chest FINDINGS: Patchy left lower lobe airspace disease. Mild airspace disease at the right lung base. Cardiomediasti nal contours are stable. Remainder of the exam is unchanged. CONCLUSION: 1. Patchy left lower lobe airspace disease concerning for pneumonia given history of cough. 2. Mild right lung base airspace disease may reflect atelectasis. Differential considerations include aspiration. Louie Leyva MD on February 04, 2018 at 17:22 Board Certified Radiologist. This report was verified electronically.
--- NOTE | 2018-02-04 17:30 | HHI.PR ---
Subjective Remarks Patient oriented to person place in year at this point Per nursing and family patient had been confused earlier in the day Objective Vitals Vital Signs Date Time Temp Pulse Resp B/P (MAP) Pulse Ox O2 Delivery O2 Flow Rate FiO2 02/04/18 17:16 95 Nasal Cannula 2.00 02/04/18 12:11 99.4 64 17 145/65 (91) 93 02/04/18 08:11 98.3 66 17 120/60 (80) 92 02/04/18 08:00 Nasal Cannula 2.00 02/04/18 04:00 Nasal Cannula 2.00 02/04/18 04:00 98.1 76 19 159/68 (98) 93 02/04/18 00:00 99.5 80 20 158/87 (110) 93 02/04/18 00:00 Nasal Cannula 2.00 02/03/18 20:00 Nasal Cannula 2.00 02/03/18 20:00 99.6 87 19 144/58 (86) 98 Result Diagram: 02/04/18 0509 02/04/18 0509 Other Results Laboratory Tests Test 02/01/18 18:05 02/01/18 20:02 02/02/18 06:45 02/03/18 05:22 White Blood Count 24.2 TH/MM3 18.2 TH/MM3 13.6 TH/MM3 Red Blood Count 4.36 MIL/MM3 4.04 MIL/MM3 2.94 MIL/MM3 Hemoglobin 12.0 GM/DL 11.2 GM/DL 8.2 GM/DL Hematocrit 36.0 % 33.6 % 24.5 % Mean Corpuscular Volume 82.6 FL 83.2 FL 83.4 FL Mean Corpuscular Hemoglobin 27.6 PG 27.7 PG 27.9 PG Mean Corpuscular Hemoglobin Concent 33.4 % 33.2 % 33.4 % Red Cell Distribution Width 13.6 % 14.3 % 14.8 % Platelet Count 219 TH/MM3 186 TH/MM3 143 TH/MM3 Mean Platelet Volume 9.4 FL 8.6 FL 8.6 FL Neutrophils (%) (Auto) 81.2 % 81.0 % Lymphocytes (%) (Auto) 8.5 % 11.8 % Monocytes (%) (Auto) 6.3 % 7.0 % Eosinophils (%) (Auto) 0.1 % 0.0 % Basophils (%) (Auto) 3.9 % 0.2 % Neutrophils # (Auto) 19.7 TH/MM3 14.7 TH/MM3 Lymphocytes # (Auto) 2.1 TH/MM3 2.1 TH/MM3 Monocytes # (Auto) 1.5 TH/MM3 1.3 TH/MM3 Eosinophils # (Auto) 0.0 TH/MM3 0.0 TH/MM3 Basophils # (Auto) 0.9 TH/MM3 0.0 TH/MM3 CBC Comment AUTO DIFF DIFF FINAL Differential Comment AUTO DIFF CONFIRMED Blood Urea Nitrogen 16 MG/DL 19 MG/DL 20 MG/DL Creatinine 1.00 MG/DL 0.93 MG/DL 0.86 MG/DL Random Glucose 105 MG/DL 84 MG/DL 98 MG/DL Calcium Level 9.3 MG/DL 8.9 MG/DL 8.3 MG/DL Sodium Level 137 MEQ/L 140 MEQ/L 141 MEQ/L Potassium Level 3.2 MEQ/L 3.9 MEQ/L 4.1 MEQ/L Chloride Level 104 MEQ/L 106 MEQ/L 108 MEQ/L Carbon Dioxide Level 25.1 MEQ/L 26.6 MEQ/L 27.1 MEQ/L Anion Gap 8 MEQ/L 7 MEQ/L 6 MEQ/L Estimat Glomerular Filtration Rate 53 ML/MIN 58 ML/MIN 63 ML/MIN Synovial Fluid Color YELLOW Synovial Fluid Appearance MARKED Synovial Fluid WBC 47732 /MM3 Synovial Fluid RBC 1940 /MM3 Synovial Fluid Neutrophils 89 % Synovial Fluid Lymphocytes 11 % Synovial Fluid Crystals NONE Total Protein 6.9 GM/DL Albumin 3.1 GM/DL Alkaline Phosphatase 73 U/L Aspartate Amino Transf (AST/SGOT) 14 U/L Alanine Aminotransferase (ALT/SGPT) 13 U/L Total Bilirubin 0.6 MG/DL Test 02/04/18 05:09 White Blood Count 13.6 TH/MM3 Red Blood Count 3.12 MIL/MM3 Hemoglobin 8.7 GM/DL Hematocrit 26.4 % Mean Corpuscular Volume 84.8 FL Mean Corpuscular Hemoglobin 27.9 PG Mean Corpuscular Hemoglobin Concent 32.9 % Red Cell Distribution Width 14.0 % Platelet Count 159 TH/MM3 Mean Platelet Volume 9.2 FL Blood Urea Nitrogen 15 MG/DL Creatinine 0.88 MG/DL Random Glucose 69 MG/DL Calcium Level 8.6 MG/DL Sodium Level 137 MEQ/L Potassium Level 4.3 MEQ/L Chloride Level 103 MEQ/L Carbon Dioxide Level 26.2 MEQ/L Anion Gap 8 MEQ/L Estimat Glomerular Filtration Rate 62 ML/MIN Imaging Last 24 hours Impressions Knee X-Ray 02/01/186 Signed Impressions: Service Date/Time: January 18:04 - CONCLUSION: Nonspecific joint effusion. No evidence of fracture, subluxation or hardware failure/loosening. Kishor Harding MD Objective Remarks GENERAL: This is a well-nourished, well-developed patient, in no apparent distress. CARDIOVASCULAR: Regular rate and rhythm RESPIRATORY: Clear to auscultation. Breath sounds equal bilaterally. GASTROINTESTINAL: Abdomen soft, non-tender, nondistended. Normal active bowel sounds MUSCULOSKELETAL: Extremities without clubbing, cyanosis, or edema. NEURO: Awake and alert. Moves all ext x4 Procedures S/p I&D R TKA with removal of prosthesis and placement of abx spacer with Dr. 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 Toney early 2014. She had an early postoperative infection and underwent irrigation and debridement with polyethylene exchange in 11/2014. Since that point patient reports chronic pain in the knee, had gotten significantly worse the day that she presents to the emergency room. When patient presented to the Emergency Room she was complaints of pain, swelling and redness about the right knee. She was also unable to stand or ambulate. She reports completing a course of antibiotics for cellulitis 1 week prior. WBC on admission 24.2 -> 18.2 (02/02)-> 13.6 (02/03) started on vancomycin and Azactam ortho consult, appreciate input S/p I&D R TKA with removal of prosthesis and placement of abx spacer with Dr. Toney 02/02 NWB, maintain knee immobilizer daily dressing changes consult placed for ID, appreciate input Per ID: Continue vancomycin and aztreonam. Monitor wound culture, Antibiotic adjustments depending on the culture results. Anticipate that the patient will require 4-6 weeks of IV antibiotics Initial culture from synovial fluid growing Staphylococcus aureus Blood culture also growing growing Staphylococcus aureus Intra operative cultures pending Hgb 8.2 (02/03) -> 8.7 (02/04) Repeat CBC and BMP in AM Repeat blood cultures in a.m. Patient noted to have coughing and difficulty swallowing during evaluation Speech therapy consulted for swallow evaluation Patient having difficulty clearing secretions add Acapella Chest x-ray requested DVT prophylaxis with Lovenox (2) Leukocytosis ICD Codes: D72.829 - Elevated white blood cell count, unspecified Status: Acute Plan: see above (3) HTN (hypertension) ICD Codes: I10 - HTN (hypertension) Status: Chronic Plan: continue home medications which include: Losartan 50 mg daily, Clonidine 0.1 mg PO BID and Triamterene/HCTZ Assessment and Plan Patient examined. Assessment and plan formulated with Maryann Gomez PA-C. I agree with the above. Family at bedside. They are concerned that pt was sleeping most of this morning and increased confusion. Pt is A&Ox3, but does seem somewhat confused from yesterday. Pt appears to be having some difficulties handling secretions. Request RT work with pt. CXR (02/04) --> possible PNA continue aztronam and vancomycin. cece prn. observe. Problem Qualifiers (1) Septic arthritis of knee, right: Qualified Codes: M00.9 - Pyogenic arthritis, unspecified Maryann Gomez Feb 04, 2018 17:30 Jonathan Castillo DO Feb 05, 2018 04:38
[2018-02-04] MEDS: ACETAMINOPHEN/HYDROcodone 325 MG/7.5 MG TAB PO PRN (21:29)
[2018-02-05] VITALS (8 sets, daily range): BP systolic 122–173; BP diastolic 58–72; PULSE 57–79; RESP 17–20; TEMP 97.7–98.6; O2SAT 91–95
[2018-02-05 07:15] LABS: HEMOGLOBIN 8.3 GM/DL (11.6-15.3); MEAN CELL VOLUME 85.6 FL (80.0-100.0); MEAN CORPUSCULAR HEMOGLOBIN 27.4 PG (27.0-34.0); MEAN PLATELET VOLUME 8.8 FL (7.0-11.0); PLATELET COUNT 210 TH/MM3 (150-450); RED BLOOD COUNT 3.04 MIL/MM3 (4.00-5.30); RED CELL DISTRIBUTION WIDTH 14.2 % (11.6-17.2); WHITE BLOOD COUNT 11.6 TH/MM3 (4.0-11.0)
[2018-02-05 07:44] LABS: CREATININE 0.94 MG/DL (0.50-1.00)
[2018-02-05] MEDS: AZTREONAM INJ 1,000 MG in SODIUM CHLORIDE 0.9% INJ 100 ML IV SCH (10:00)
[2018-02-05] MEDS: MULTIVITAMINS/MINERALS THERAPEUTIC TAB PO SCH ×2 (10:01→21:17)
[2018-02-05] MEDS: ACETAMINOPHEN/HYDROcodone 325 MG/7.5 MG TAB PO PRN ×2 (10:01→21:17)
[2018-02-05] MEDS: CYANOCOBALAMIN 1,000 MCG TAB PO SCH (10:01)
[2018-02-05] MEDS: PANTOPRAZOLE SOD 20 MG DELAYED RELEASE TAB PO SCH ×2 (10:01→21:17)
[2018-02-05] MEDS: DOCUSATE SODIUM 50 MG/SENNA 8.6 MG TAB PO SCH ×2 (10:01→21:17)
[2018-02-05] MEDS: cloNIDine HCL 0.1 MG TAB PO SCH ×2 (10:01→21:17)
[2018-02-05] MEDS: CHOLECALCIFEROL (VIT D3) 1000 UNIT TAB PO SCH (10:02)
[2018-02-05] MEDS: VERAPAMIL HCL 240 MG SUSTAINED RELEASE TAB PO SCH ×2 (10:02→21:17)
[2018-02-05] MEDS: TRIAMTERENE/HCTZ 37.5 MG/25 MG TAB PO SCH (10:02)
[2018-02-05] MEDS: PRAVASTATIN SOD 20 MG TAB PO SCH (10:02)
[2018-02-05] MEDS: LOSARTAN 50 MG TAB PO SCH ×2 (10:02→21:17)
[2018-02-05] MEDS: DOCUSATE SODIUM 100 MG CAP PO SCH ×2 (10:02→21:17)
[2018-02-05] MEDS: SODIUM CHLORIDE 0.9% FLUSH 10 ML FLUSH IV FLUSH SCH ×2 (10:03→21:17)
--- NOTE | 2018-02-05 10:07 | HHI.PR ---
Subjective Remarks Patient offers no new complaints/concerns today A&O x3 Objective Vitals Vital Signs Date Time Temp Pulse Resp B/P (MAP) Pulse Ox O2 Delivery O2 Flow Rate FiO2 02/05/18 04:00 97.7 79 20 147/66 (93) 93 02/05/18 04:00 Nasal Cannula 2.00 02/05/18 00:00 98.6 72 17 137/62 (87) 94 02/05/18 00:00 Nasal Cannula 2.00 02/04/18 20:35 Nasal Cannula 2.00 02/04/18 20:00 98.2 72 19 160/74 (102) 93 02/04/18 20:00 Nasal Cannula 2.00 02/04/18 17:16 95 Nasal Cannula 2.00 02/04/18 16:11 98.1 74 18 159/70 (99) 99 02/04/18 12:11 99.4 64 17 145/65 (91) 93 Result Diagram: 02/05/18 0540 02/05/18 0540 Other Results Laboratory Tests Test 02/03/18 05:22 02/04/18 05:09 02/05/18 05:40 White Blood Count 13.6 TH/MM3 13.6 TH/MM3 11.6 TH/MM3 Red Blood Count 2.94 MIL/MM3 3.12 MIL/MM3 3.04 MIL/MM3 Hemoglobin 8.2 GM/DL 8.7 GM/DL 8.3 GM/DL Hematocrit 24.5 % 26.4 % 26.0 % Mean Corpuscular Volume 83.4 FL 84.8 FL 85.6 FL Mean Corpuscular Hemoglobin 27.9 PG 27.9 PG 27.4 PG Mean Corpuscular Hemoglobin Concent 33.4 % 32.9 % 32.0 % Red Cell Distribution Width 14.8 % 14.0 % 14.2 % Platelet Count 143 TH/MM3 159 TH/MM3 210 TH/MM3 Mean Platelet Volume 8.6 FL 9.2 FL 8.8 FL Blood Urea Nitrogen 20 MG/DL 15 MG/DL Creatinine 0.86 MG/DL 0.88 MG/DL 0.94 MG/DL Random Glucose 98 MG/DL 69 MG/DL Calcium Level 8.3 MG/DL 8.6 MG/DL Sodium Level 141 MEQ/L 137 MEQ/L Potassium Level 4.1 MEQ/L 4.3 MEQ/L Chloride Level 108 MEQ/L 103 MEQ/L Carbon Dioxide Level 27.1 MEQ/L 26.2 MEQ/L Anion Gap 6 MEQ/L 8 MEQ/L Estimat Glomerular Filtration Rate 63 ML/MIN 62 ML/MIN 57 ML/MIN Imaging Last 24 hours Impressions Knee X-Ray 02/01/18 1746 Signed Impressions: Service Date/Time: January 18:04 - CONCLUSION: Nonspecific joint effusion. No evidence of fracture, subluxation or hardware failure/loosening. Kishor Harding MD Objective Remarks GENERAL: This is a well-nourished, well-developed patient, in no apparent distress. CARDIOVASCULAR: Regular rate and rhythm RESPIRATORY: Clear to auscultation. Breath sounds equal bilaterally. GASTROINTESTINAL: Abdomen soft, non-tender, nondistended. Normal active bowel sounds MUSCULOSKELETAL: Extremities without clubbing, cyanosis, or edema. NEURO: Awake and alert. Moves all ext x4 Procedures S/p I&D R TKA with removal of prosthesis and placement of abx spacer with Dr. 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 Toney early 2014. She had an early postoperative infection and underwent irrigation and debridement with polyethylene exchange in 11/2014. Since that point patient reports chronic pain in the knee, had gotten significantly worse the day that she presents to the emergency room. When patient presented to the Emergency Room she was complaints of pain, swelling and redness about the right knee. She was also unable to stand or ambulate. She reports completing a course of antibiotics for cellulitis 1 week prior. WBC on admission 24.2 -> 18.2 (02/02)-> 13.6 (02/03) started on vancomycin and Azactam ortho consult, appreciate input S/p I&D R TKA with removal of prosthesis and placement of abx spacer with Dr. Toney 02/02 NWB, maintain knee immobilizer daily dressing changes consult placed for ID, appreciate input Per ID: Continue vancomycin and aztreonam. Monitor wound culture, Antibiotic adjustments depending on the culture results. Anticipate that the patient will require 4-6 weeks of IV antibiotics Initial culture from synovial fluid growing Staphylococcus aureus Blood culture also growing growing Staphylococcus aureus Intra operative cultures pending Hgb 8.2 (02/03) -> 8.7 (02/04) Repeat CBC and BMP in AM Repeat blood cultures in a.m. Patient noted to have coughing and difficulty swallowing during evaluation Speech therapy consulted for swallow evaluation Patient having difficulty clearing secretions add Acapella Chest x-ray requested DVT prophylaxis with Lovenox (2) Leukocytosis ICD Codes: D72.829 - Elevated white blood cell count, unspecified Status: Acute Plan: see above (3) HTN (hypertension) ICD Codes: I10 - HTN (hypertension) Status: Chronic Plan: continue home medications which include: Losartan 50 mg daily, Clonidine 0.1 mg PO BID and Triamterene/HCTZ (4) PNA (pneumonia) ICD Codes: J18.9 - Pneumonia, unspecified organism Plan: Patient noted to have cough with fluid intake CXR (02/04) reveals: patchy left lower lobe airspace disease concerning for pneumonia/ Mild right lung base airspace disease may reflect atelectasis. Differential considerations include aspiration. Patient being followed by ID currently on Aztreonam and Vancomycin Speech therapy evaluation recommending mechanical soft and nectar thickened liquids Assessment and Plan Patient examined. Assessment and plan formulated with Maryann Gomez PA-C. I agree with the above. septic knee arthroplasty.. mssa. cont abx per ID no evidence of ACS. describes some epigastric and lower cp after eating. maalox. ppi given. also a msk component. updated family. Problem Qualifiers (1) Septic arthritis of knee, right: Qualified Codes: M00.9 - Pyogenic arthritis, unspecified Maryann Gomez Feb 05, 2018 10:07 Bruno Cooley MD Feb 05, 2018 18:01
[2018-02-05] MEDS: FLUTICASONE PROPIONATE 50 MCG/ACT 16 GM NASAL SPRAY NASAL SCH (10:19)
[2018-02-05] MEDS ORDERED: PHARMACY ORDERED LAB ONE ×3 (11:45→17:45)
[2018-02-05] MEDS ORDERED: ALUMINUM/MAGNESIUM/SIMETH 30 ML CUP PO PRN (11:45)
[2018-02-05] MEDS ORDERED: ALUMINUM/MAGNESIUM/SIMETH 30 ML CUP PO ONE (12:00)
--- NOTE | 2018-02-05 12:32 | HHI.IDPN ---
Note Infectious Disease Note Patient is lying in bed, she notes itching of the skin. She was noted to have cough over the weekend. She continues to have occasional cough. Not bringing up sputum. Has some pain in the right knee. Blood cultures has staph aureus. Synovial fluid culture staph aureus. Afebrile. The white blood cell count has improved. Status post removal of total knee arthroplasty. Status post synovectomy and debridement. PAST MEDICAL HISTORY: Degenerative joint disease, hyperlipidemia, hypertension, gastroesophageal reflux disease, COPD, history of right cataract removal, history of right total knee replacement and revision in 2015. ALLERGIES: CEFUROXIME, CODEINE, ASPIRIN, AND MORPHINE. MEDICATIONS: Current Medications Medications (Trade) Dose Ordered Sig/Priyank Route PRN Reason Start Time Stop Time Status Last Admin Dose Admin Cholecalciferol (Vitamin D3) 2,000 units DAILY PO 02/02/18 09:00 02/05/18 10:02 Clonidine (Catapres) 0.1 mg BID PO 02/02/18 09:00 02/05/18 10:01 Cyanocobalamin (Vitamin B12) 500 mcg DAILY PO 02/02/18 09:00 02/05/18 10:01 Losartan Potassium (Cozaar) 50 mg BID PO 02/02/18 09:00 02/05/18 10:02 Pravastatin Sodium (Pravachol) 20 mg DAILY PO 02/02/18 09:00 02/05/18 10:02 Triamterene/HCTZ (Maxzide 37.5-25 Mg) 1 tab DAILY PO 02/02/18 09:00 02/05/18 10:02 Verapamil HCl (Isoptin Sr) 240 mg BID PO 02/02/18 09:00 02/05/18 10:02 Fluticasone Propionate (Flonase Adam Spr) 2 spray DAILY NASAL 02/02/18 09:00 Pantoprazole Sodium (Protonix) 20 mg BID PO 02/02/18 09:00 02/05/18 10:01 Sodium Chloride (NS Flush) 2 ml UNSCH PRN IV FLUSH FLUSH AFTER USING IV ACCESS 02/01/18 23:30 Sodium Chloride (NS Flush) 2 ml BID IV FLUSH 02/02/18 09:00 02/05/18 10:03 Ondansetron HCl (Zofran Inj) 4 mg Q6H PRN IVP NAUSEA OR VOMITING 02/01/18 23:30 Temazepam (Restoril) 15 mg HS PRN PO INSOMNIA 02/01/18 23:30 Tramadol HCl (Ultram) 50 mg Q4H PRN PO pain5-10 02/01/18 23:30 02/02/18 02:32 Naloxone HCl (Narcan Inj) 0.4 mg UNSCH PRN IV PUSH SEE LABEL COMMENTS 02/01/18 23:30 Senna/Docusate Sodium (Ale-Colace) 1 tab BID PO 02/02/18 09:00 02/05/18 10:01 Magnesium Hydroxide (Milk Of Magnesia Liq) 30 ml Q12H PRN PO Mild constipation 02/01/18 23:30 Sennosides (Senokot) 17.2 mg Q12H PRN PO Moderate constipation 02/01/18 23:30 Bisacodyl (Dulcolax Supp) 10 mg DAILY PRN RECTAL SEVERE CONSITIPATION/ IF NPO 02/01/18 23:30 Lactulose (Lactulose Liq) 30 ml DAILY PRN PO SEVERE CONSITIPATION/ IF PO 02/01/18 23:30 Aztreonam 1000 mg/ Sodium Chloride 100 ml @ 200 mls/hr Q8H IV 02/02/18 00:00 02/05/18 10:00 Pharmacy Profile Note 0 ml @ 0 mls/hr UNSCH OTHER 02/01/18 23:30 Enoxaparin Sodium (Lovenox Inj) 40 mg Q24H SQ 02/03/18 12:15 02/04/18 13:02 Hydromorphone HCl (Dilaudid Pf Inj) 1 mg Q3H PRN IV PUSH PAIN GREATER THAN 7 02/02/18 11:30 Acetaminophen/ Hydrocodone Bitart (Mobile 7.5-325 Mg) 1 tab Q4H PRN PO PAIN LESS THAN 5 ON SCALE 02/02/18 11:30 02/03/18 10:24 Acetaminophen/ Hydrocodone Bitart (Mobile 7.5-325 Mg) 2 tab Q4H PRN PO PAIN SCALE 5 TO 10 02/02/18 11:30 02/05/18 10:01 Multivitamins/ Minerals Therapeutic (Theragran M Tab) 1 tab BID PO 02/03/18 21:00 04/04/18 20:59 02/05/18 10:01 Docusate Sodium (Colace) 100 mg BID PO 02/03/18 21:00 02/05/18 10:02 Zolpidem Tartrate (Ambien) 5 mg HS PRN PO SLEEP 02/02/18 21:00 Diphenhydramine HCl (Benadryl Inj) 25 mg Q6H PRN IV PUSH ITCHING 02/02/18 11:30 Vancomycin HCl 1250 mg/Sodium Chloride 262.5 ml @ 250 mls/hr Q24H IV 02/03/18 12:00 02/04/18 13:03 Albuterol/ Ipratropium (Duoneb Neb) 1 ampule Q6HR NEB PRN NEB SOB/WHEEZING 02/04/18 16:15 02/04/18 17:17 Al Hydrox/Mg Hydrox/Simethicone (Mag-Al Plus Susp Liq) 30 ml Q6H PRN PO INDIGESTION 02/05/18 11:45 Objective. Vital Signs Date Time Temp Pulse Resp B/P (MAP) Pulse Ox O2 Delivery O2 Flow Rate FiO2 02/05/18 11:29 2.00 02/05/18 08:00 98.6 69 18 157/71 (99) 91 02/05/18 04:00 97.7 79 20 147/66 (93) 93 02/05/18 04:00 Nasal Cannula 2.00 02/05/18 00:00 98.6 72 17 137/62 (87) 94 02/05/18 00:00 Nasal Cannula 2.00 02/04/18 20:35 Nasal Cannula 2.00 02/04/18 20:00 98.2 72 19 160/74 (102) 93 02/04/18 20:00 Nasal Cannula 2.00 02/04/18 17:16 95 Nasal Cannula 2.00 02/04/18 16:11 98.1 74 18 159/70 (99) 99 Laboratory Tests Test 02/05/18 05:40 02/05/18 10:40 White Blood Count 11.6 TH/MM3 Red Blood Count 3.04 MIL/MM3 Hemoglobin 8.3 GM/DL Hematocrit 26.0 % Mean Corpuscular Volume 85.6 FL Mean Corpuscular Hemoglobin 27.4 PG Mean Corpuscular Hemoglobin Concent 32.0 % Red Cell Distribution Width 14.2 % Platelet Count 210 TH/MM3 Mean Platelet Volume 8.8 FL Creatinine 0.94 MG/DL Estimat Glomerular Filtration Rate 57 ML/MIN Troponin I LESS THAN 0.02 NG/ML Last Impressions Chest X-Ray 02/04/18 0000 Signed Impressions: Service Date/Time: Sunday, February 04, 2018 16:38 - CONCLUSION: 1. Patchy left lower lobe airspace disease concerning for pneumonia given history of cough. 2. Mild right lung base airspace disease may reflect atelectasis. Differential considerations include aspiration. Louie Leyva MD Knee X-Ray 02/02/18 1120 Signed Impressions: Service Date/Time: Friday, February 02, 2018 14:14 - CONCLUSION: Status post right knee replacement with prostheses adequate in position. Gaetano Rand MD PHYSICAL EXAMINATION: GENERAL: No acute distress. Awake and oriented. Looks tired. HEENT: The head is atraumatic. Extraocular movements grossly intact. Pupils reactive to light. No icterus. Oropharynx moist mucosa. No visible lesions. NECK: Supple. No adenopathy. No swelling. LUNGS: Decreased breath sounds at the bases. HEART: Regular S1, S2. No murmurs, rubs or gallops. ABDOMEN: Bowel sounds present. Soft, no tenderness appreciated. EXTREMITIES: The right knee has a surgical dressing in place. SKIN: No diffuse rash. NEUROLOGIC: No gross focal findings. PSYCHIATRIC: Calm and cooperative. IMPRESSION: 1. Infected right total knee arthroplasty. Wound culture staph aureus. The patient is status post removal of hardware and antibiotic spacer placement. 2. Bacteremia due to staph aureus. 3. Abnormal chest x-ray. Possible aspiration. 4. Itching. Possible due to antibiotic. RECOMMENDATIONS: 1. Continue vancomycin. Patient is allergic to cefuroxime. 2. Stop aztreonam. 3. Plan on intravenous vancomycin for 6 weeks and then aspiration of the knee to ensure resolution of infection prior to redoing surgery. Monitor kidney function while on the vancomycin. John Melgar MD Feb 05, 2018 12:32
--- NOTE | 2018-02-05 12:46 | PD.ORT.PN ---
Subjective Post Op Day #: 3 Subjective Remarks doing ok. pain controlled. Objective Vitals Vital Signs Date Time Temp Pulse Resp B/P (MAP) Pulse Ox O2 Delivery O2 Flow Rate FiO2 02/05/18 11:29 2.00 02/05/18 08:00 98.6 69 18 157/71 (99) 91 02/05/18 04:00 97.7 79 20 147/66 (93) 93 02/05/18 04:00 Nasal Cannula 2.00 02/05/18 00:00 98.6 72 17 137/62 (87) 94 02/05/18 00:00 Nasal Cannula 2.00 02/04/18 20:35 Nasal Cannula 2.00 02/04/18 20:00 98.2 72 19 160/74 (102) 93 02/04/18 20:00 Nasal Cannula 2.00 02/04/18 17:16 95 Nasal Cannula 2.00 02/04/18 16:11 98.1 74 18 159/70 (99) 99 I/O 02/04/18 02/04/18 02/04/18 02/05/18 02/05/18 02/05/18 07:00 15:00 23:00 07:00 15:00 23:00 Intake Total 240 ml 362.5 ml 900 ml 200 ml Output Total 600 ml 800 ml 700 ml Balance -360 ml 362.5 ml 100 ml -500 ml Intake Oral 240 ml 800 ml 100 ml IV Total 362.5 ml 100 ml 100 ml Output Urine Total 600 ml 800 ml 700 ml # Voids 2 1 # Bowel Movements 0 1 0 Result Diagram: 02/05/18 0540 02/05/18 0540 Imaging Last 24 hours Impressions Knee X-Ray 02/01/18 1746 Signed Impressions: Service Date/Time: January 18:04 - CONCLUSION: Nonspecific joint effusion. No evidence of fracture, subluxation or hardware failure/loosening. Kishor Harding MD Objective Remarks Right lower extremity: Clean dry dressings intact. Knee immobilizer in place. Intact sensation distally with active dorsiflexion plantar flexion of foot Assessment & Plan Ortho Post Op Day #: 3 Problem List: Assessment and Plan S/p I&D R TKA with removal of prosthesis and placement of abx spacer POD#3 NWB, maintain knee immobilizer daily dressing changes lovenox IV vanco appreciate ID input - vanco x6 weeks patient still needs PICC line staph aureus d/c planning to snf vs home with hhc and pt - will need arrangements for IV abx Jignesh Garcia Feb 05, 2018 12:46
[2018-02-05] MEDS: ENOXAPARIN SODIUM 40 MG/0.4 ML SYRINGE SQ SCH (13:52)
[2018-02-05] MEDS: VANCOMYCIN INJ 1,250 MG in SODIUM CHLOR 0.9% 250 ML INJ 250 ML IV SCH (13:52)
--- NOTE | 2018-02-05 19:15 | EKG ---
Date Performed: 02/05/2018 Time Performed: 16:39:25 PTAGE: 82 years EKG: Sinus rhythm WITH SINUS ARRHYTHMIA LEFT VENTRICULAR HYPERTROPHY AND ST-T CHANGE ABNORMAL ECG No significant healy e from prior electrocardiogram. PREVIOUS TRACING : 02/05/2018 11.56 DOCTOR: Neftaly Wills Interpretating Date/Time 02/05/2018 19:14:46
--- NOTE | 2018-02-05 19:17 | EKG ---
Date Performed: 02/05/2018 Time Performed: 11:56:52 PTAGE: 82 years EKG: Baseline artifact present Sinus rhythm . Extensive ST-T changes are nonspecific Borderline ECG No significant change from prior electrocardi ogram. PREVIOUS TRACING : 02/05/2018 11.47 DOCTOR: Neftaly Wills Interpretating Date/Time 02/05/2018 19:17:19
--- NOTE | 2018-02-05 20:22 | EKG ---
Date Performed: 02/05/2018 Time Performed: 11:47:22 PTAGE: 82 years EKG: Sinus rhythm WITH OCCASIONAL SUPRAVENTRICULAR PREMATURE COMPLEXES NONSPECIFIC ST & T-WAVE ABNORMALITY BORDERLINE ECG PREVIOUS TRACING : 05/17/2017 14.54 Since the previous tracing, no significant change noted DOCTOR: Reinaldo Gant Interpretating Date/Time 02/05/2018 20:21:20
[2018-02-06] VITALS (9 sets, daily range): BP systolic 144–201; BP diastolic 63–84; PULSE 63–92; RESP 17–20; TEMP 97.2–98.7; O2SAT 94–99
--- NOTE | 2018-02-06 05:00 | EKG ---
Date Performed: 02/05/2018 Time Performed: 22:26:59 PTAGE: 82 years EKG: Sinus rhythm MODERATE VOLTAGE CRITERIA FOR LVH, CONSIDER NORMAL VARIANT NONSPECIFIC T-WAVE ABNORMALITY BORDERLINE ECG No significant change from prior electrocardiogram. PREVIOUS TRACING : 02/05/2018 16.39 DOCTOR: Neftaly Wills Interpretating Date/Time 02/06/2018 05:00:46
--- NOTE | 2018-02-06 08:45 | PD.ORT.PN ---
Subjective Post Op Day #: 4 Subjective Remarks doing ok. no changes. Objective Vitals Vital Signs Date Time Temp Pulse Resp B/P (MAP) Pulse Ox O2 Delivery O2 Flow Rate FiO2 02/06/18 05:45 97.5 69 18 183/76 (111) 94 02/06/18 04:00 Nasal Cannula 2.00 02/06/18 03:50 65 02/06/18 00:30 98.7 74 17 144/63 (90) 96 02/06/18 00:00 Nasal Cannula 2.00 02/05/18 23:50 57 02/05/18 22:00 98.0 75 17 154/66 (95) 94 02/05/18 20:00 Nasal Cannula 2.00 02/05/18 19:47 75 02/05/18 16:00 62 02/05/18 16:00 97.7 67 18 173/72 (105) 93 02/05/18 12:00 98.3 63 18 122/58 (79) 95 02/05/18 11:29 2.00 I/O 02/05/18 02/05/18 02/05/18 02/06/18 02/06/18 02/06/18 07:00 15:00 23:00 07:00 15:00 23:00 Intake Total 200 ml 480 ml 60 ml Output Total 700 ml 900 ml Balance -500 ml 480 ml -840 ml Intake Oral 100 ml 480 ml 60 ml IV Total 100 ml Output Urine Total 700 ml 900 ml # Voids 1 2 # Bowel Movements 0 0 Result Diagram: 02/05/18 0540 02/05/18 0540 Imaging Last 24 hours Impressions Knee X-Ray 02/01/18 1746 Signed Impressions: Service Date/Time: January 18:04 - CONCLUSION: Nonspecific joint effusion. No evidence of fracture, subluxation or hardware failure/loosening. Kishor Harding MD Objective Remarks Right lower extremity: Clean dry dressings intact. Knee immobilizer in place. Intact sensation distally with active dorsiflexion plantar flexion of foot Assessment & Plan Ortho Post Op Day #: 4 Problem List: Assessment and Plan S/p I&D R TKA with removal of prosthesis and placement of abx spacer POD#4 NWB, maintain knee immobilizer daily dressing changes lovenox IV vanco appreciate ID input - vanco x6 weeks patient still needs PICC line staph aureus d/c planning to snf vs home with hhc and pt - will need arrangements for IV abx Jignesh Garcia February 06, 2018 08:45
[2018-02-06] MEDS: SODIUM CHLORIDE 0.9% FLUSH 10 ML FLUSH IV FLUSH SCH ×2 (09:19→21:00)
[2018-02-06] MEDS: cloNIDine HCL 0.1 MG TAB PO SCH ×2 (09:19→21:32)
[2018-02-06] MEDS: TRIAMTERENE/HCTZ 37.5 MG/25 MG TAB PO SCH (09:20)
[2018-02-06] MEDS: DOCUSATE SODIUM 100 MG CAP PO SCH ×2 (09:20→21:31)
[2018-02-06] MEDS: CHOLECALCIFEROL (VIT D3) 1000 UNIT TAB PO SCH (09:20)
[2018-02-06] MEDS: LOSARTAN 50 MG TAB PO SCH ×2 (09:20→21:32)
[2018-02-06] MEDS: VERAPAMIL HCL 240 MG SUSTAINED RELEASE TAB PO SCH ×2 (09:20→21:31)
[2018-02-06] MEDS: DOCUSATE SODIUM 50 MG/SENNA 8.6 MG TAB PO SCH ×2 (09:20→21:31)
[2018-02-06] MEDS: PRAVASTATIN SOD 20 MG TAB PO SCH (09:21)
[2018-02-06] MEDS: ACETAMINOPHEN/HYDROcodone 325 MG/7.5 MG TAB PO PRN ×2 (09:21→12:17)
[2018-02-06] MEDS: PANTOPRAZOLE SOD 20 MG DELAYED RELEASE TAB PO SCH ×2 (09:21→21:31)
[2018-02-06] MEDS: MULTIVITAMINS/MINERALS THERAPEUTIC TAB PO SCH ×2 (09:21→21:31)
[2018-02-06] MEDS: CYANOCOBALAMIN 1,000 MCG TAB PO SCH (09:21)
[2018-02-06] MEDS: FLUTICASONE PROPIONATE 50 MCG/ACT 16 GM NASAL SPRAY NASAL SCH (10:02)
--- NOTE | 2018-02-06 12:02 | HHI.PR ---
Subjective Remarks says her epigastric/chest discomfort resolved at present. Objective Vitals heart reg lung course bs abd s/nt ext right knee immobilized Vital Signs Date Time Temp Pulse Resp B/P (MAP) Pulse Ox O2 Delivery O2 Flow Rate FiO2 02/06/18 09:23 96 Nasal Cannula 2.00 02/06/18 08:00 63 02/06/18 08:00 Nasal Cannula 2.00 02/06/18 05:45 97.5 69 18 183/76 (111) 94 02/06/18 04:00 Nasal Cannula 2.00 02/06/18 03:50 65 02/06/18 00:30 98.7 74 17 144/63 (90) 96 02/06/18 00:00 Nasal Cannula 2.00 02/05/18 23:50 57 02/05/18 22:00 98.0 75 17 154/66 (95) 94 02/05/18 20:00 Nasal Cannula 2.00 02/05/18 19:47 75 02/05/18 16:00 62 02/05/18 16:00 97.7 67 18 173/72 (105) 93 Result Diagram: 02/05/18 0540 02/05/18 0540 Imaging Last 24 hours Impressions Knee X-Ray 02/01/18 1746 Signed Impressions: Service Date/Time: January 18:04 - CONCLUSION: Nonspecific joint effusion. No evidence of fracture, subluxation or hardware failure/loosening. Kishor Harding MD Procedures S/p I&D R TKA with removal of prosthesis and placement of abx spacer with Dr. 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 Toney early 2014. She had an early postoperative infection and underwent irrigation and debridement with polyethylene exchange in 11/2014. Since that point patient reports chronic pain in the knee, had gotten significantly worse the day that she presents to the emergency room. When patient presented to the Emergency Room she was complaints of pain, swelling and redness about the right knee. She was also unable to stand or ambulate. She reports completing a course of antibiotics for cellulitis 1 week prior. WBC on admission 24.2 -> 18.2 (02/02)-> 13.6 (02/03) started on vancomycin and Azactam ortho consult, appreciate input S/p I&D R TKA with removal of prosthesis and placement of abx spacer with Dr. Toney 02/02 NWB, maintain knee immobilizer daily dressing changes MSSA infection...Anticipate that the patient will require 4-6 weeks of IV antibiotics ...PICC line ordered Arrange d/c to snf in next 24hrs. (2) HTN (hypertension) ICD Codes: I10 - HTN (hypertension) Status: Chronic Plan: continue home medications which include: Losartan 50 mg daily, Clonidine 0.1 mg PO BID and Triamterene/HCTZ (3) PNA (pneumonia) ICD Codes: J18.9 - Pneumonia, unspecified organism Status: Acute Plan: Patient noted to have cough with fluid intake CXR (02/04) reveals: patchy left lower lobe airspace disease concerning for pneumonia/ Mild right lung base airspace disease may reflect atelectasis. Differential considerations include aspiration. Patient being followed by ID currently on Aztreonam and Vancomycin Speech therapy evaluation recommending mechanical soft and nectar thickened liquids Problem Qualifiers (1) Septic arthritis of knee, right: Qualified Codes: M00.9 - Pyogenic arthritis, unspecified Bruno Cooley MD February 06, 2018 12:02
[2018-02-06] MEDS: ENOXAPARIN SODIUM 40 MG/0.4 ML SYRINGE SQ SCH (12:15)
[2018-02-06] MEDS: VANCOMYCIN 1,500 MG/NS 500 ML IV SCH ×2 (12:16)
--- NOTE | 2018-02-06 15:06 | HHI.IDPN ---
Note Infectious Disease Note Patient notes pain in right knee currently 10/10 scale. Received pain med 3 hours ago. No cough or SOB. Afebrile. No longer has itching. Status post removal of total knee arthroplasty. Status post synovectomy and debridement. PAST MEDICAL HISTORY: Degenerative joint disease, hyperlipidemia, hypertension, gastroesophageal reflux disease, COPD, history of right cataract removal, history of right total knee replacement and revision in 2015. ALLERGIES: CEFUROXIME, CODEINE, ASPIRIN, AND MORPHINE. MEDICATIONS: Current Medications Medications (Trade) Dose Ordered Sig/Priyank Route PRN Reason Start Time Stop Time Status Last Admin Dose Admin Cholecalciferol (Vitamin D3) 2,000 units DAILY PO 02/02/18 09:00 02/06/18 09:20 Clonidine (Catapres) 0.1 mg BID PO 02/02/18 09:00 02/06/18 09:19 Cyanocobalamin (Vitamin B12) 500 mcg DAILY PO 02/02/18 09:00 02/06/18 09:21 Losartan Potassium (Cozaar) 50 mg BID PO 02/02/18 09:00 02/06/18 09:20 Pravastatin Sodium (Pravachol) 20 mg DAILY PO 02/02/18 09:00 02/06/18 09:21 Triamterene/HCTZ (Maxzide 37.5-25 Mg) 1 tab DAILY PO 02/02/18 09:00 02/06/18 09:20 Verapamil HCl (Isoptin Sr) 240 mg BID PO 02/02/18 09:00 02/06/18 09:20 Fluticasone Propionate (Flonase Adam Spr) 2 spray DAILY NASAL 02/02/18 09:00 02/06/18 10:02 Pantoprazole Sodium (Protonix) 20 mg BID PO 02/02/18 09:00 02/06/18 09:21 Sodium Chloride (NS Flush) 2 ml UNSCH PRN IV FLUSH FLUSH AFTER USING IV ACCESS 02/01/18 23:30 Sodium Chloride (NS Flush) 2 ml BID IV FLUSH 02/02/18 09:00 02/06/18 09:19 Ondansetron HCl (Zofran Inj) 4 mg Q6H PRN IVP NAUSEA OR VOMITING 02/01/18 23:30 Temazepam (Restoril) 15 mg HS PRN PO INSOMNIA 02/01/18 23:30 Tramadol HCl (Ultram) 50 mg Q4H PRN PO pain5-10 02/01/18 23:30 02/02/18 02:32 Naloxone HCl (Narcan Inj) 0.4 mg UNSCH PRN IV PUSH SEE LABEL COMMENTS 02/01/18 23:30 Senna/Docusate Sodium (Ale-Colace) 1 tab BID PO 02/02/18 09:00 02/06/18 09:20 Magnesium Hydroxide (Milk Of Magnesia Liq) 30 ml Q12H PRN PO Mild constipation 02/01/18 23:30 Sennosides (Senokot) 17.2 mg Q12H PRN PO Moderate constipation 02/01/18 23:30 Bisacodyl (Dulcolax Supp) 10 mg DAILY PRN RECTAL SEVERE CONSITIPATION/ IF NPO 02/01/18 23:30 Lactulose (Lactulose Liq) 30 ml DAILY PRN PO SEVERE CONSITIPATION/ IF PO 02/01/18 23:30 Pharmacy Profile Note 0 ml @ 0 mls/hr UNSCH OTHER 02/01/18 23:30 Enoxaparin Sodium (Lovenox Inj) 40 mg Q24H SQ 02/03/18 12:15 02/05/18 13:52 Hydromorphone HCl (Dilaudid Pf Inj) 1 mg Q3H PRN IV PUSH PAIN GREATER THAN 7 02/02/18 11:30 Acetaminophen/ Hydrocodone Bitart ([place] 7.5-325 Mg) 1 tab Q4H PRN PO PAIN LESS THAN 5 ON SCALE 02/02/18 11:30 02/06/18 12:17 Acetaminophen/ Hydrocodone Bitart ([place] 7.5-325 Mg) 2 tab Q4H PRN PO PAIN SCALE 5 TO 10 02/02/18 11:30 02/05/18 21:17 Multivitamins/ Minerals Therapeutic (Theragran M Tab) 1 tab BID PO 02/03/18 21:00 04/04/18 20:59 02/06/18 09:21 Docusate Sodium (Colace) 100 mg BID PO 02/03/18 21:00 02/06/18 09:20 Zolpidem Tartrate (Ambien) 5 mg HS PRN PO SLEEP 02/02/18 21:00 Diphenhydramine HCl (Benadryl Inj) 25 mg Q6H PRN IV PUSH ITCHING 02/02/18 11:30 Albuterol/ Ipratropium (Duoneb Neb) 1 ampule Q6HR NEB PRN NEB SOB/WHEEZING 02/04/18 16:15 02/04/18 17:17 Al Hydrox/Mg Hydrox/Simethicone (Mag-Al Plus Susp Liq) 30 ml Q6H PRN PO INDIGESTION 02/05/18 11:45 Vancomycin HCl 1500 mg/Sodium Chloride 515 ml @ 257.5 mls/ hr Q24H IV 02/06/18 12:00 02/06/18 12:16 Miscellaneous Information ([facility] [place] Info) SPECIFIC LAB TO BE ... ONCE ONCE .XX 02/09/18 11:45 02/09/18 11:46 Objective. Vital Signs Date Time Temp Pulse Resp B/P (MAP) Pulse Ox O2 Delivery O2 Flow Rate FiO2 02/06/18 12:00 97.2 80 19 172/77 (108) 97 02/06/18 12:00 68 02/06/18 09:23 96 Nasal Cannula 2.00 02/06/18 08:00 63 02/06/18 08:00 98.1 83 19 191/76 (114) 99 02/06/18 08:00 Nasal Cannula 2.00 02/06/18 05:45 97.5 69 18 183/76 (111) 94 02/06/18 04:00 Nasal Cannula 2.00 02/06/18 03:50 65 02/06/18 00:30 98.7 74 17 144/63 (90) 96 02/06/18 00:00 Nasal Cannula 2.00 02/05/18 23:50 57 02/05/18 22:00 98.0 75 17 154/66 (95) 94 02/05/18 20:00 Nasal Cannula 2.00 02/05/18 19:47 75 02/05/18 16:00 62 02/05/18 16:00 97.7 67 18 173/72 (105) 93 Laboratory Tests Test 02/05/18 05:40 White Blood Count 11.6 TH/MM3 Red Blood Count 3.04 MIL/MM3 Hemoglobin 8.3 GM/DL Hematocrit 26.0 % Mean Corpuscular Volume 85.6 FL Mean Corpuscular Hemoglobin 27.4 PG Mean Corpuscular Hemoglobin Concent 32.0 % Red Cell Distribution Width 14.2 % Platelet Count 210 TH/MM3 Mean Platelet Volume 8.8 FL Laboratory Tests Test 02/05/18 05:40 02/05/18 10:40 02/05/18 20:17 02/06/18 02:32 Creatinine 0.94 MG/DL Estimat Glomerular Filtration Rate 57 ML/MIN Troponin I LESS THAN 0.02 NG/ML LESS THAN 0.02 NG/ML LESS THAN 0.02 NG/ML Microbiology Date/Time Source Procedure Growth Status 02/05/18 05:50 Blood Peripheral Aerobic Blood Culture - Preliminary NO GROWTH IN 1 DAY Resulted 02/05/18 05:50 Blood Peripheral Anaerobic Blood Culture - Preliminary NO GROWTH IN 1 DAY Resulted 02/05/18 05:40 Blood Peripheral Aerobic Blood Culture - Preliminary NO GROWTH IN 1 DAY Resulted 02/05/18 05:40 Blood Peripheral Anaerobic Blood Culture - Preliminary NO GROWTH IN 1 DAY Resulted IMAGING: Chest X-Ray 02/04/18 0000 Signed Impressions: Service Date/Time: Sunday, February 04, 2018 16:38 - CONCLUSION: 1. Patchy left lower lobe airspace disease concerning for pneumonia given history of cough. 2. Mild right lung base airspace disease may reflect atelectasis. Differential considerations include aspiration. Louie Leyva MD Knee X-Ray 02/02/18 1120 Signed Impressions: Service Date/Time: Friday, February 02, 2018 14:14 - CONCLUSION: Status post right knee replacement with prostheses adequate in position. Gaetano Rand MD PHYSICAL EXAMINATION: GENERAL: No acute distress. Awake and alert. HEENT: Extraocular movements grossly intact. Pupils reactive to light. No icterus. Oropharynx moist mucosa. No visible lesions. NECK: Supple. No adenopathy. No swelling. LUNGS: Decreased breath sounds. HEART: Regular S1, S2. No murmurs, rubs or gallops. ABDOMEN: Bowel sounds present. Soft, no tenderness. EXTREMITIES: The right knee has surgical dressing in place. SKIN: No diffuse rash. NEUROLOGIC: No gross focal findings. PSYCHIATRIC: Calm and cooperative. IMPRESSION: 1. 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 Status post removal of hardware and antibiotic spacer placement. 2. Bacteremia due to staph aureus. 3. Abnormal chest x-ray. Possible aspiration. 4. Itching. Possible due to antibiotic. Aztreonam stopped. RECOMMENDATIONS: Continue vancomycin for 6 weeks and then aspiration of the knee to ensure resolution of infection prior to redoing surgery. Orders written for Vancomycin administration at Rehab. Labs ordered. John Melgar MD February 06, 2018 15:06
--- NOTE | 2018-02-06 15:18 | HHI.FF ---
Infusion Therapy Location of Infusion Therapy: [facility] Infusion Therapy Order Patient Information Patient Weight 75.1 kg Diagnosis: Coded Allergies: cefuroxime (Verified Allergy, Intermediate, Rash, 02/01/18) aspirin (Unverified Adverse Reaction, Intermediate, GI, 02/01/18) codeine (Unverified Adverse Reaction, Intermediate, HYPER, 02/01/18) morphine (Unverified Adverse Reaction, Unknown, states causes confusion, ) Administer Medication Vancomycin 1.5 grams IV q 24 hours Stop Treatment: Mar 16, 2018 Additional Information Venous access: PICC Line Additional Instructions [x] Peripheral flush and dressing changes per protocol [x] Implanted port and central line servicer: * Implanted port: 10 ml Normal Saline followed by 5 ml Heparin 100 units/ml Heparin flush after each use and monthly to maintain. [] May leave port accessed during therapy. [] May leave peripheral site accessed for duration of therapy. [x] If patient has SOB or respiratory distress, check oxygen saturation. If less than 90% or clinical signs of respiratory distress, administer oxygen at 2 L/min. via nasal cannula and notify physician. [x] Anaphylaxis/Reaction orders: * Stop infusion. * Keep IV line open with saline flush. * Notify physician. * Monitor vital signs every 15 minutes until symptoms resolve. * Check Oxygen saturation; Oxygen at 2 L/min. via nasal cannula if less than 90% or clinical signs of respiratory distress. * Administer diphenhydramine (Benadryl) 25 mg IV STAT, (unless patient has received as pre-med). May repeat once, if necessary. * Solu-Cortef 250 mg IVP over 30-60 seconds, use 100 mg vials for each dissolution. * Epinephrine (1mg/1 ml) 0.3 mg subcutaneously or IVP now with any signs of respiratory distress. * Check with physician for new additional pre-med orders if patient is re- challenged or re-treated. [x] May remove PICC line when treatment complete, after confirming with Physician. [x] If the patient is admitted to the hospital, the ED, or transferred via [facility] , complete transfer form including medication reconciliation order sheet. Laboratory Tests Additional Information Vancomycin trough and BMP every 3 days x 1 week then Vancomycin trough weekly and BMP weekly. Call with vancomycin level greater than 20 or creatinine greater than 1.6. Hold vancomycin if vancomycin level greater than 20 or creatinine greater than 1.6. Phone number Dr. Melgar . Fax number [phone]. John Melgar MD February 06, 2018 15:18
[2018-02-06] MEDS: traMADol HCL 50 MG TAB PO PRN ×2 (16:21→21:32)
[2018-02-07] VITALS (10 sets, daily range): BP systolic 156–200; BP diastolic 58–84; PULSE 57–86; RESP 18; TEMP 97.9–98.4; O2SAT 94–98
[2018-02-07] MEDS: traMADol HCL 50 MG TAB PO PRN ×5 (01:18→22:40)
--- NOTE | 2018-02-07 08:29 | PD.ORT.PN ---
Subjective Post Op Day #: 5 Subjective Remarks doing ok. no changes. Objective Vitals Vital Signs Date Time Temp Pulse Resp B/P (MAP) Pulse Ox O2 Delivery O2 Flow Rate FiO2 02/07/18 08:15 2.00 02/07/18 06:10 98.1 74 18 200/79 (119) 94 02/07/18 04:00 61 02/07/18 04:00 Nasal Cannula 2.00 02/07/18 01:10 97.9 86 18 156/58 (90) 95 02/07/18 00:00 Nasal Cannula 2.00 02/07/18 00:00 73 02/06/18 22:00 98.1 92 20 201/84 (123) 95 02/06/18 20:00 Nasal Cannula 2.00 02/06/18 20:00 91 02/06/18 16:00 98.4 72 19 171/72 (105) 96 02/06/18 16:00 74 02/06/18 12:00 97.2 80 19 172/77 (108) 97 02/06/18 12:00 68 02/06/18 09:23 96 Nasal Cannula 2.00 I/O 02/06/18 02/06/18 02/06/18 02/07/18 02/07/18 02/07/18 07:00 15:00 23:00 07:00 15:00 23:00 Intake Total 60 ml 515 ml 1400 ml 240 ml Output Total 900 ml 1800 ml 1600 ml Balance -840 ml 515 ml -400 ml -1360 ml Intake Oral 60 ml 1400 ml 240 ml IV Total 515 ml Output Urine Total 900 ml 1800 ml 1600 ml # Bowel Movements 0 0 Result Diagram: 02/05/18 0540 02/05/18 0540 Imaging Last 24 hours Impressions Knee X-Ray 02/01/18 1746 Signed Impressions: Service Date/Time: January 18:04 - CONCLUSION: Nonspecific joint effusion. No evidence of fracture, subluxation or hardware failure/loosening. Kishor Harding MD Objective Remarks Right lower extremity: incision no erythema, no active drainage, dressing changes. Knee immobilizer in place. Intact sensation distally with active dorsiflexion plantar flexion of foot Assessment & Plan Ortho Post Op Day #: 5 Problem List: Assessment and Plan S/p I&D R TKA with removal of prosthesis and placement of abx spacer POD#5 NWB, maintain knee immobilizer daily dressing changes lovenox IV vanco appreciate ID input - vanco x6 weeks patient still needs PICC line staph aureus d/c planning to snf - will need arrangements for IV abx. cleared by ortho once arrangements in place. Jignesh Garcia February 07, 2018 08:29
[2018-02-07] MEDS: CYANOCOBALAMIN 1,000 MCG TAB PO SCH (08:44)
[2018-02-07] MEDS: SODIUM CHLORIDE 0.9% FLUSH 10 ML FLUSH IV FLUSH SCH ×2 (08:44→20:45)
[2018-02-07] MEDS: DOCUSATE SODIUM 100 MG CAP PO SCH ×2 (08:44→20:45)
[2018-02-07] MEDS: PANTOPRAZOLE SOD 20 MG DELAYED RELEASE TAB PO SCH ×2 (08:45→20:45)
[2018-02-07] MEDS: LOSARTAN 50 MG TAB PO SCH ×2 (08:45→20:45)
[2018-02-07] MEDS: VERAPAMIL HCL 240 MG SUSTAINED RELEASE TAB PO SCH ×2 (08:45→20:45)
[2018-02-07] MEDS: PRAVASTATIN SOD 20 MG TAB PO SCH (08:45)
[2018-02-07] MEDS: FLUTICASONE PROPIONATE 50 MCG/ACT 16 GM NASAL SPRAY NASAL SCH (08:46)
[2018-02-07] MEDS: TRIAMTERENE/HCTZ 37.5 MG/25 MG TAB PO SCH (08:46)
[2018-02-07] MEDS: MULTIVITAMINS/MINERALS THERAPEUTIC TAB PO SCH ×2 (08:46→20:45)
[2018-02-07] MEDS: CHOLECALCIFEROL (VIT D3) 1000 UNIT TAB PO SCH (08:46)
[2018-02-07] MEDS: DOCUSATE SODIUM 50 MG/SENNA 8.6 MG TAB PO SCH ×2 (08:46→20:45)
[2018-02-07] MEDS: cloNIDine HCL 0.1 MG TAB PO SCH ×2 (08:46→20:45)
[2018-02-07 08:48] LABS: CREATININE 0.56 MG/DL (0.50-1.00)
[2018-02-07] MEDS ORDERED: cloNIDine HCL 0.1 MG TAB PO PRN (09:00)
--- NOTE | 2018-02-07 10:48 | HHI.PR ---
Subjective Remarks doing well no complaints Objective Vitals heart reg lung cta abd s/nt ext no edema right leg brace Vital Signs Date Time Temp Pulse Resp B/P (MAP) Pulse Ox O2 Delivery O2 Flow Rate FiO2 02/07/18 08:15 2.00 02/07/18 08:00 98.4 65 18 192/81 (118) 97 02/07/18 08:00 Nasal Cannula 2.00 02/07/18 06:10 98.1 74 18 200/79 (119) 94 02/07/18 04:00 61 02/07/18 04:00 Nasal Cannula 2.00 02/07/18 01:10 97.9 86 18 156/58 (90) 95 02/07/18 00:00 Nasal Cannula 2.00 02/07/18 00:00 73 02/06/18 22:00 98.1 92 20 201/84 (123) 95 02/06/18 20:00 Nasal Cannula 2.00 02/06/18 20:00 91 02/06/18 16:00 98.4 72 19 171/72 (105) 96 02/06/18 16:00 74 02/06/18 12:00 97.2 80 19 172/77 (108) 97 02/06/18 12:00 68 Result Diagram: 02/05/18 0540 02/07/18 0728 Imaging Last 24 hours Impressions Knee X-Ray 02/01/18 1746 Signed Impressions: Service Date/Time: January 18:04 - CONCLUSION: Nonspecific joint effusion. No evidence of fracture, subluxation or hardware failure/loosening. Kishor Harding MD Procedures S/p I&D R TKA with removal of prosthesis and placement of abx spacer with Dr. 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 Toney early 2014. She had an early postoperative infection and underwent irrigation and debridement with polyethylene exchange in 11/2014. Since that point patient reports chronic pain in the knee, had gotten significantly worse the day that she presents to the emergency room. When patient presented to the Emergency Room she was complaints of pain, swelling and redness about the right knee. She was also unable to stand or ambulate. She reports completing a course of antibiotics for cellulitis 1 week prior. WBC on admission 24.2 -> 18.2 (02/02)-> 13.6 (02/03) started on vancomycin and Azactam ortho consult, appreciate input S/p I&D R TKA with removal of prosthesis and placement of abx spacer with Dr. Toney 02/02 NWB, maintain knee immobilizer daily dressing changes MSSA infection...Anticipate that the patient will require 4-6 weeks of IV antibiotics ...PICC line ordered If bp stable later today and picc placed then will plan for d/c to snf. (2) HTN (hypertension) ICD Codes: I10 - HTN (hypertension) Status: Chronic Plan: continue home medications which include: Losartan 50 mg daily, Clonidine 0.1 mg PO BID and Triamterene/HCTZ (3) PNA (pneumonia) ICD Codes: J18.9 - Pneumonia, unspecified organism Status: Acute Plan: Patient noted to have cough with fluid intake CXR (02/04) reveals: patchy left lower lobe airspace disease concerning for pneumonia/ Mild right lung base airspace disease may reflect atelectasis. Differential considerations include aspiration. Problem Qualifiers (1) Septic arthritis of knee, right: Qualified Codes: M00.9 - Pyogenic arthritis, unspecified Bruno Cooley MD February 07, 2018 10:48
[2018-02-07] MEDS: ENOXAPARIN SODIUM 40 MG/0.4 ML SYRINGE SQ SCH (11:59)
[2018-02-07] MEDS: VANCOMYCIN 1,500 MG/NS 500 ML IV SCH ×2 (12:00)
[2018-02-07] MEDS ORDERED: SODIUM CHLORIDE 0.9% FLUSH 10 ML FLUSH IV FLUSH PRN (14:45)
[2018-02-08] VITALS: PULSE 50
[2018-02-08 00:31] VITALS: BP 163/72; PULSE 97; RESP 18; TEMP 98.2; O2SAT 98
[2018-02-08 04:00] VITALS: PULSE 71
[2018-02-08 06:01] VITALS: BP 165/72; PULSE 70; RESP 18; TEMP 97.9; O2SAT 96
[2018-02-08 06:22] LABS: CREATININE 0.98 MG/DL (0.50-1.00)
[2018-02-08 08:00] VITALS: PULSE 61
[2018-02-08] MEDS ORDERED: SODIUM CHLORIDE 0.9% FLUSH 10 ML FLUSH IV FLUSH SCH (09:00)
[2018-02-08] MEDS: TRIAMTERENE/HCTZ 37.5 MG/25 MG TAB PO SCH (09:56)
[2018-02-08] MEDS: PRAVASTATIN SOD 20 MG TAB PO SCH (09:56)
[2018-02-08] MEDS: VERAPAMIL HCL 240 MG SUSTAINED RELEASE TAB PO SCH (09:56)
[2018-02-08] MEDS: cloNIDine HCL 0.1 MG TAB PO SCH (09:56)
[2018-02-08] MEDS: DOCUSATE SODIUM 50 MG/SENNA 8.6 MG TAB PO SCH (09:56)
[2018-02-08] MEDS: PANTOPRAZOLE SOD 20 MG DELAYED RELEASE TAB PO SCH (09:57)
[2018-02-08] MEDS: CHOLECALCIFEROL (VIT D3) 1000 UNIT TAB PO SCH (09:57)
[2018-02-08] MEDS: DOCUSATE SODIUM 100 MG CAP PO SCH (09:57)
[2018-02-08] MEDS: MULTIVITAMINS/MINERALS THERAPEUTIC TAB PO SCH (09:57)
[2018-02-08] MEDS: CYANOCOBALAMIN 1,000 MCG TAB PO SCH (09:57)
[2018-02-08] MEDS: LOSARTAN 50 MG TAB PO SCH (09:57)
[2018-02-08] MEDS: FLUTICASONE PROPIONATE 50 MCG/ACT 16 GM NASAL SPRAY NASAL SCH (09:58)
[2018-02-08] MEDS: SODIUM CHLORIDE 0.9% FLUSH 10 ML FLUSH IV FLUSH SCH (10:08)
[2018-02-08] MEDS ORDERED: CLON.1 PO (10:42)
--- NOTE | 2018-02-08 10:50 | HHI.DS ---
Discharge Summary Admission Date Feb 01, 2018 at 22:33 Discharge Date: February 08, 2018 Admitting Diagnosis Septic Arthritis R Knee (1) Septic arthritis of knee, right Diagnosis: Principal ICD Codes: M00.9 - Pyogenic arthritis, unspecified Status: Acute (2) HTN (hypertension) Diagnosis: Secondary ICD Codes: I10 - HTN (hypertension) Status: Chronic (3) PNA (pneumonia) Diagnosis: Secondary ICD Codes: J18.9 - Pneumonia, unspecified organism Status: Acute Procedures S/p I&D R TKA with removal of prosthesis and placement of abx spacer with Dr. Toney 02/02 Brief History 82-year-old female arrives by EMS. She was unable to ambulate today. 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 She reports chronic pain every day however it is much worse today and she is unable to walk because of it. No injury or excessive use is reported. The patient reports completing a course of antibiotics for cellulitis one week prior. The patient has undergone total knee arthroplasty on that side with a revision.She's had no fever. The patient describes the pain about the right knee as somewhat superficial in location. Any movement has pain ,and is slightly warm as compared to left ,[place] [id number] and knee was fluid obtained and showed large amount WBC and cloudy consistent with infective joint will admit consult ortho may need intervention. also start broad spectrum antibiotics. CBC/BMP: 02/05/18 0540 02/08/18 0540 Significant Findings Laboratory Tests Test 02/05/18 12:10 02/05/18 20:17 02/06/18 02:32 02/07/18 07:28 Vancomycin Level Trough 10.4 MCG/ML (5.0-10.0) Troponin I LESS THAN 0.02 NG/ML LESS THAN 0.02 NG/ML Test 02/08/18 05:40 Estimat Glomerular Filtration Rate 55 ML/MIN (>89) Hospital Course (1) Septic arthritis of knee, right Patient undergone a previous right total knee arthroplasty by the Dr. Toney early 2014. She had an early postoperative infection and underwent irrigation and debridement with polyethylene exchange in 11/2014. Since that point patient reports chronic pain in the knee, had gotten significantly worse the day that she presents to the emergency room. When patient presented to the Emergency Room she was complaints of pain, swelling and redness about the right knee. She was also unable to stand or ambulate. She reports completing a course of antibiotics for cellulitis 1 week prior. WBC on admission 24.2 started on vancomycin and Azactam but azactam stopped by ID ortho consult S/p I&D R TKA with removal of prosthesis and placement of abx spacer with Dr. Toney 02/02 NWB, maintain knee immobilizer daily dressing changes MSSA infection...Anticipate that the patient will require abx through March 16. See abx infusion orders. She will f/u with Orthopedics in about 2 weeks. ...PICC line placed and can be removed once abx complete. (2) HTN (hypertension) ICD Codes: I10 - HTN (hypertension) Status: Chronic Plan: continue home medications which include: Losartan 50 mg daily, and Triamterene/HCTZ clonidine increased and will get prn clonidine at snf (3) PNA (pneumonia) ICD Codes: J18.9 - Pneumonia, unspecified organism Status: Acute Plan: Patient noted to have cough with fluid intake CXR (02/04) reveals: patchy left lower lobe airspace disease concerning for pneumonia/ Mild right lung base airspace disease may reflect atelectasis. Differential considerations include aspiration. Pt Condition on Discharge: Stable Discharge Disposition: Discharge to SNF Discharge Instructions DIET: Follow Instructions for: Soft Diet Activities you can perform: Non Weight Bearing Follow up Referrals: Orthopedics - 2 Weeks with Jignesh Toney MD New Medications: Enoxaparin Inj (Lovenox Inj) 40 Mg/0.4 Ml Syr 40 MG SQ DAILY for Blood Clot Prevention for 30 Days, SYRINGE 0 Refills Hydrocodone-Acetaminophen (Elmer) 7.5-325 mg Tab 1-2 TAB PO Q6H PRN for PAIN, #90 TAB 0 Refills Clonidine (Catapres) 0.1 Mg Tab 0.2 MG PO BID for Blood Pressure Management for 30 Days, #120 TAB Continued Medications: Calcium Carbonate (Calcium 600) 600 Mg Calcium (1500 Mg) Tab 1500 MG PO, TAB Cholecalciferol (Vitamin D3) 1,000 Unit Tab 2000 UNITS PO DAILY for Nutritional Supplement, #1 BOTTLE 0 Refills Cyanocobalamin (Vitamin B-12) 500 Mcg Tab 500 MCG PO DAILY for Nutritional Supplement, #1 BOTTLE 0 Refills Fluticasone Propionate (Nasal) (Kls Aller-Seamus) 50 Mcg/Actuation Spr 2 SPRAY NASAL DAILY Losartan (Losartan) 50 Mg Tab 50 MG PO BID for Blood Pressure Management, #30 TAB 0 Refills Lovastatin (Lovastatin) 20 Mg Tab 20 MG PO DAILY for Cholesterol Management, #30 TAB 0 Refills Omeprazole (Omeprazole) 20 Mg Tab 20 MG PO BID, #30 TAB 0 Refills Triamterene-Hydrochlorothiazide (Triamterene-Hydrochlorothiazide) 37.5-25 Mg Tab 1 TAB PO DAILY, #30 TAB 0 Refills Verapamil ER 24 HR (Verapamil ER 24 HR) 240 Mg Tab 240 MG PO BID, #30 TAB 0 Refills Discontinued Medications: Acetaminophen (Non-Aspirin Pain Relief ES) 500 Mg Tab 500 MG PO Q4-6H PRN for PAIN, TAB 0 Refills Clonidine (Clonidine) 0.1 Mg Tab 0.1 MG PO BID for Blood Pressure Management, #60 TAB 0 Refills Bruno Cooley MD February 08, 2018 10:50
[2018-02-08] MEDS: VANCOMYCIN 1,500 MG/NS 500 ML IV SCH ×2 (11:44)
[2018-02-08] MEDS: ENOXAPARIN SODIUM 40 MG/0.4 ML SYRINGE SQ SCH (11:45)
[2018-02-09] MEDS ORDERED: PHARMACY ORDERED LAB ONE (11:45)
== END 2018-02-08 16:45 | DRG 463 ==
LOC: PHED 17:34 → PHEDA 22:33 → N04A 02-02 01:50
PROVIDERS: ADMIT Hospitalist; ATTEND Hospitalist
PROC: 0S9C3ZX Drainage of Right Knee Joint, Percutaneous Approach, Diagnostic (ICD-10-PCS; 2018-02-01)
PROC: 0SBC0ZZ Excision of Right Knee Joint, Open Approach (ICD-10-PCS; 2018-02-02)
PROC: 0SHC08Z Insertion of Spacer into Right Knee Joint, Open Approach (ICD-10-PCS; 2018-02-02)
PROC: 0SPC0JZ Removal of Synthetic Substitute from Right Knee Joint, Open Approach (ICD-10-PCS; principal; 2018-02-02 11:14)
DX: T84.53XA Infection and inflammatory reaction due to internal right knee prosthesis, initial encounter (principal); J18.9 Pneumonia, unspecified organism; R78.81 Bacteremia; L03.115 Cellulitis of right lower limb; J44.0 Chronic obstructive pulmonary disease with (acute) lower respiratory infection; I10 Essential (primary) hypertension; K21.9 Gastro-esophageal reflux disease without esophagitis; E78.5 Hyperlipidemia, unspecified; R25.1 Tremor, unspecified; L29.8 Other pruritus; B95.61 Methicillin susceptible Staphylococcus aureus infection as the cause of diseases classified elsewhere; Y83.1 Surgical operation with implant of artificial internal device as the cause of abnormal reaction of the patient, or of later complication, without mention of misadventure at the time of the procedure; Z88.5 Allergy status to narcotic agent; Z88.6 Allergy status to analgesic agent
CPT/HCPCS: 20610; 71045; 73560; 73564; 80048; 80053; 80202; 82565; 82945; 84157; 84484; 85025; 85027; 86403; 86850; 86900; 86901; 86920; 87015; 87040; 87070; 87077; 87102; 87116; 87147; 87186; 87205; 87206; 89051; 89060; 93005; 94150; 94664; 94667; 94668; 96365; C1713; J0131; J1170; J1580; J1650; J2175; J2405; J2710; J3010; J3370; J7030; J7040; J7050; J7613; L1830

== ENCOUNTER 2018-05-02 05:17 | Inpatient (IN) ==
[2018-05-02] MEDS ORDERED: Sodium Chlor 0.9% Inj 73.07 ML, Ropivacaine 0.5% PF Inj 24.63 ML, Ketorolac Inj 30 MG, ... P-ARTICULR SCH ×5 (05:45)
[2018-05-02] MEDS ORDERED: Chlorhexidine 4% Topical 120 APPLIC/120 ML Bottle TOPICAL SCH (05:45)
[2018-05-02] MEDS ORDERED: Vancomycin Inj 1 GM/200 ML PIGGYBACK IV.SIG SCH ×2 (06:00→19:00)
[2018-05-02] MEDS ORDERED: Chlorhexidine Gluconate 2% 1 Pack (2 Cloths) TOPICAL SCH (06:00)
[2018-05-02] MEDS ORDERED: Metoprolol Tartrate 25 MG Tablet PO SCH (06:00)
[2018-05-02] MEDS ORDERED: ceFAZolin 2 GM Premix Inj 2 GM/50 ML PIGGYBACK IV.SIG SCH (06:00)
[2018-05-02] MEDS ORDERED: Sodium Chlor 0.9% Inj 500 ML IV.SIG SCH (06:00)
[2018-05-02] MEDS ORDERED: Tranexamic Acid Inj 1,020 MG in Sodium Chlor 0.9% Inj 100 ML IV.SIG SCH (06:00)
[2018-05-02] MEDS ORDERED: Dexamethasone Inj 20 MG/5 ML Vial ONE (06:18)
[2018-05-02] MEDS ORDERED: Bupivacaine Liposomal PF 1.3% Inj 20 ML Vial ONE (06:32)
[2018-05-02] MEDS ORDERED: Bisacodyl 10 MG Supp RECTAL PRN (06:42)
[2018-05-02] MEDS ORDERED: Post-op Orders (for Pharmacy) OTHER STA (06:42)
[2018-05-02] MEDS ORDERED: Lidocaine PF 1% Inj 5 ML Vial ONE (06:52)
[2018-05-02] MEDS ORDERED: HYDROmorphone PF Inj 2 MG/ML Vial IV.PUSH PRN (08:15)
[2018-05-02] MEDS ORDERED: Tranexamic Acid Inj 3,000 MG in Sodium Chlor 0.9% Inj 100 ML IV.SIG SCH (08:44)
[2018-05-02] MEDS ORDERED: *Meperidine Inj 25 MG/ML Vial PERIprocedural Use ONLY ONE (09:26)
[2018-05-02] MEDS ORDERED: fentaNYL Citrate Inj 100 MCG/2 ML Ampul ONE (09:29)
--- NOTE | 2018-05-02 10:18 | XR ---
EXAM DATE: 05/02/2018 10:05 AM EDT AGE/SEX: 83 years / Female INDICATIONS: Post op revision of right total knee. CLINICAL DATA: This is the patient's initial encounter. Patient reports that signs and symptoms have been present for 1 day and indicates a pain score of 0/10. MEDICAL/SURGICAL HISTORY: None. Total knee replacement, right. COMPARISON: [facility] [place], KNEE RIGHT [facility] (1 OR 2 VWS), 02/02/2018. . FINDINGS: AP and lateral views of the right knee were obtained and demonstrate the patient is status post alex ion arthroplasty. The femoral and tibial components are intact and normal alignment. There are postop erative changes involving the patella. Anterior soft tissue swelling and gas is noted as well as over lying surgical skin bernardino. There is diffuse osteopenia. CONCLUSION: Expected post surgical changes status post revision arthroplasty. Electronically signed by: Kaushik Quinones MD 05/02/2018 10:17 AM EDT
[2018-05-02] MEDS: Multivitamin/Minerals Therapeutic Tablet PO SCH ×2 (10:30→20:55)
[2018-05-02] MEDS: Pantoprazole Sodium 20 MG DR Tablet PO SCH ×2 (10:30→20:55)
[2018-05-02] MEDS: Montelukast 10 MG Tablet PO SCH (10:30)
[2018-05-02] MEDS: Senna/Docusate Sodium 8.6/50 MG Tablet PO SCH ×2 (10:31→20:56)
[2018-05-02] MEDS: Verapamil SR 240 MG Tablet PO SCH (10:46)
--- NOTE | 2018-05-02 11:26 | P.CONIM ---
History of Present Illness Consult date: 05/02/18 Requesting Physician: Jignesh Toney Reason for Consult: Medical Management Primary Care Provider: Everette Garcia MD Family Provider: Everette Garcia MD History of Present Illness: Mr. Urban is a pleasant 83 y/o female with HTN, osteoporosis, emphysema and hx of septic arthritis. Pt had previously had a right TKA in 10/2014 which required I&D with polyethylene exchange in 11/2014 due to infection. Earlier this year she was admitted for septic arthritis in the right knee in 01/2018 and was found to have an MSSA infection. She underwent I&D of the right TKA with removal of prosthesis and placement of abx spacer with Dr. Toney 02/02/18. Pt was discharged on IV Vancomycin which was completed on 03/16/18. Pt was read[place] [facility] [place] and underwent right knee revision total knee arthroplasty, femoral and tibial components with Dr. Toney. Pt is seen post-operatively in the PACU and is doing well. Her vital signs are stable. Pt has Becker cath in place and her RLE is in CPM machine. Her pain is currently well controlled. She has Cefazolin ordered per Ortho. Pt is without any specific complaints at the time of examination today. Denies any chest pain, SOB, palpitations, nausea/ vomiting, dizziness or weakness. Past Medical History Septic arthritis, right knee in 01/2018 GERD Gait instability HTN Hypercalcemia Hyperlipidemia Lumbar DDD Osteoporosis Superior Mesenteric Artery stenosis Vit D and B12 def Emphysema Past Surgical History I&D Right TKA with removal of prosthesis and placement of abx spacer with Dr. Toney 02/02/18 I&D with polyethylene exchange in 11/2014 due to infection Right TKA 11/03/[address] Toney Cataract surgery T&A Colonoscopy/EGD Family History Noncontributory Social History No tobacco since 1999; prior to that smoked 1/3 to 1/2 ppd for 40 yrs No EtOH Retired from school cafeteria Review of Systems Constitutional: Denies chills, Denies fever(s) Eyes: Denies change in vision Ears, Nose, Mouth, and Throat: Denies dizziness, Denies headache(s), Denies neck pain, Denies sore throat Cardiovascular: Denies chest pain, Denies shortness of breath Respiratory: Denies cough Gastrointestinal: Denies abdominal pain, Denies nausea, Denies vomiting Skin/Breast: Denies rash Psychiatric: Denies anxiety, Denies depression PMFSH - History History Provided By: Patient - Medical History Medical History: Medical History (Last Updated 05/02/18 @ 06:10 by Kelli Townsend) Chronic GERD Hypercholesteremia Hypertension - Surgical History Surgical History: Surgical History (Last Updated 05/02/18 @ 06:10 by Kelli Townsend) History of cataract surgery History of tonsillectomy History of total knee arthroplasty - Tobacco History Second Hand Smoke Exposure: No Smoking Status: Former smoker - Alcohol History How Often Do You Have a Drink Containing Alcohol: Never Medications and Allergies Allergies Allergy/AdvReac Type Severity Reaction Status Date / Time cefuroxime Allergy Intermediate Rash Verified 05/02/18 05:48 aspirin AdvReac Intermediate GI Unverified 05/02/18 05:48 codeine AdvReac Intermediate HYPER Unverified 05/02/18 05:48 morphine AdvReac Unknown states Unverified 05/02/18 05:48 causes confusion Home Medications Medication Instructions Recorded Confirmed Type clonidine HCl 0.1 mg PO BID 05/02/18 05/02/18 History fluticasone 1 spray INTRANASAL DAILY 05/02/18 05/02/18 History losartan 50 mg PO DAILY 05/02/18 05/02/18 History lovastatin 20 mg PO DAILY 05/02/18 05/02/18 History montelukast 10 mg PO DAILY 05/02/18 05/02/18 History omeprazole 20 mg PO BID 05/02/18 05/02/18 History triamterene-hydrochlorothiazid 1 cap PO DAILY 05/02/18 05/02/18 History verapamil 240 mg PO DAILY 05/02/18 05/02/18 History Active Medications: Active Medications Hydrocodone Bitart/Acetaminophen ([place] 7.5/325) 1 tab PO Q4H PRN PRN Reason: PAIN LESS THAN 5 ON SCALE Hydrocodone Bitart/Acetaminophen ([place] 7.5/325) 2 tab PO Q6H PRN PRN Reason: PAIN SCALE 5 TO 10 Al Hydroxide/Mg Hydroxide (Milk Of Magnesia Liq) 30 ml PO BID PRN PRN Reason: Mild Constipation Bisacodyl (Dulcolax Supp) 10 mg RECTAL DAILY PRN PRN Reason: SEVERE CONSITIPATION Chlorhexidine Gluconate (Hibiclens 4% Topical) 1 applicatio TOPICAL ONCE [facility] Stop: 05/06/18 05:44 Chlorhexidine Gluconate (Chlorhexidine 2% Cloth) 3 pack TOPICAL [facility] ANALY[facility] Stop: 05/05/18 05:49 Last Admin: 05/02/18 05:30 Dose: 3 pack Clonidine HCl (Catapres) 0.1 mg PO BID [facility] Last Admin: 05/02/18 10:46 Dose: 0.1 mg Sodium Chloride 73.07 ml/Ropivacaine 24.63 ml/Ketorolac Tromethamine 30 mg/ Epinephrine HCl 0.5 mg/cloNIDine PF Inj 80 mcg 0 ml P-ARTICULR ONCE [facility] Stop: 05/02/18 14:00 Last Admin: 05/02/18 07:32 Dose: 1 bag Diphenhydramine HCl (Benadryl) 25 mg PO Q6H PRN PRN Reason: ITCHING Enoxaparin Sodium (Lovenox Inj) 40 mg SQ Q24H [facility] Hydromorphone HCl (Dilaudid Pf Inj) 1 mg IV.PUSH Q3H PRN PRN Reason: BREAKTHROUGH PAIN Sodium Chloride (Ns Inj) 500 mls @ 30 mls/hr IV.SIG .Q10H [facility] Stop: 05/05/18 05:49 Cefazolin Sodium/Dextrose (Ancef 2 Gm Premix Inj) 2 gm in 50 mls @ 100 mls/hr IV.SIG [facility] Stop: 05/06/18 05:59 Last Infusion: 05/02/18 07:44 Dose: Infused Tranexamic Acid 1,020 mg/ (Sodium Chloride) 110.2 mls @ 200 mls/hr IV.SIG ONCE [facility] Stop: 05/02/18 14:00 Last Infusion: 05/02/18 07:50 Dose: Infused Tranexamic Acid 3,000 mg/ (Sodium Chloride) 130 mls @ 200 mls/hr IV.SIG ONCE [facility] Stop: 05/02/18 15:00 Last Infusion: 05/02/18 08:50 Dose: Infused Vancomycin/Sodium Chloride (Vancomycin Inj) 1 gm in 200 mls @ 200 mls/hr IV.SIG [facility] Stop: 05/06/18 05:59 Last Infusion: 05/02/18 07:29 Dose: Infused Lactated Ringer's (Lr 1000 Ml Inj) 1,000 mls @ 30 mls/hr IV.SIG .Q24H [facility] Stop: 05/05/18 05:49 Last Admin: 05/02/18 06:28 Dose: 30 mls/hr Lactated Ringer's (Lr 1000 Ml Inj) 1,000 mls @ 80 mls/hr IV.CONT .[id number] [facility] Last Admin: 05/02/18 10:28 Dose: 80 mls/hr Vancomycin/Sodium Chloride (Vancomycin Inj) 1 gm in 200 mls @ 200 mls/hr IV.SIG Q12H [facility] Stop: 05/03/18 07:59 Lactulose (Lactulose Liq) 30 ml PO DAILY PRN PRN Reason: SEVERE CONSITIPATION Losartan Potassium (Cozaar) 50 mg PO DAILY [facility] Last Admin: 05/02/18 10:46 Dose: 50 mg Metoprolol Tartrate (Lopressor) 25 mg PO [facility] Stop: 05/05/18 05:49 Miscellaneous Information ([facility] [place] Nursing Information) 1 each OTHER UNSCH PRN PRN Reason: SEE LABEL COMMENTS Stop: 05/03/18 09:27 Montelukast Sodium (Singulair) 10 mg PO DAILY [facility] Last Admin: 05/02/18 10:30 Dose: Not Given Multivitamins/Minerals (Theragran-M) 1 tab PO BID [facility] Stop: 07/01/18 08:59 Last Admin: 05/02/18 10:30 Dose: Not Given Ondansetron HCl (Zofran Odt) 4 mg PO Q6H PRN PRN Reason: NAUSEA OR VOMITING Pantoprazole Sodium (Protonix) 20 mg PO BID [facility] Last Admin: 05/02/18 10:30 Dose: Not Given Povidone Iodine (Betadine 5% Antisepsis Kit) 1 applicatio EACH NARE [facility] ANALYST [facility] Stop: 05/05/18 05:49 Last Admin: 05/02/18 06:20 Dose: 1 applicatio Povidone Iodine (Betadine 7.5% Scrub) 1 applicatio TOPICAL ONCE [facility] Stop: 05/06/18 05:59 Pravastatin Sodium (Pravachol) 20 mg PO DAILY [facility] Last Admin: 05/02/18 10:31 Dose: Not Given Senna/Docusate Sodium (Ale-Colace) 1 tab PO BID [facility] Last Admin: 05/02/18 10:31 Dose: Not Given Sennosides (Senokot) 17.2 mg PO BID PRN PRN Reason: Moderate Constipation Sodium Chloride (Ns Flush) 2 ml IV.FLUSH BID [facility] Last Admin: 05/02/18 10:50 Dose: 2 ml Sodium Chloride (Ns Flush) 2 ml IV.FLUSH UNSCH PRN PRN Reason: FLUSH AFTER USING IV ACCESS Triamterene/HCTZ (Dyazide 37.5/25 Mg) 1 cap PO DAILY [facility] Last Admin: 05/02/18 10:46 Dose: 1 cap Verapamil HCl (Isoptin Sr) 240 mg PO DAILY [facility] Last Admin: 05/02/18 10:46 Dose: 240 mg Zolpidem Tartrate (Ambien) 5 mg PO HS PRN PRN Reason: INSOMNIA Exam Vital signs: Vital Signs 05/02/18 06:17 05/02/18 06:50 05/02/18 09:23 Temperature 97.9 F 97.4 F L Pulse Rate 80 78 98 H Respiratory Rate 22 Blood Pressure 156/69 H 174/75 H Pulse Oximetry 97 99 95 05/02/18 09:30 05/02/18 09:45 05/02/18 10:00 Temperature Pulse Rate 83 65 66 Respiratory Rate 20 21 23 Blood Pressure 170/74 H 169/72 H 160/68 H Pulse Oximetry 95 97 97 05/02/18 10:15 05/02/18 10:30 05/02/18 11:00 Temperature Pulse Rate 60 61 55 L Respiratory Rate 19 20 19 Blood Pressure 176/76 H 170/70 H 161/70 H Pulse Oximetry 99 98 100 05/02/18 11:09 Temperature Pulse Rate Respiratory Rate Blood Pressure Pulse Oximetry 95 Intake & Output 05/01/18 05/02/18 05/02/18 18:59 06:59 18:59 Intake Total 3540.2 / 3540.2 Output Total 1000 / 1000 Balance 2540.2 / 2540.2 Weight 68 kg Intake: IV 490.2 / 490.2 Cyklokapron Inj 3,000 MG In NS 240.2 / 240.2 Inj 100 ML @ 200 mls/hr IV.SIG ONCE [facility] Rx#:[id number] Vancomycin Inj 1 gm In 200 ml @ 200 / 200 200 mls/hr IV.SIG [facility] ANALYST [facility] Rx#:[id number] Ancef 2 GM Premix Inj 2 gm In 50 / 50 50 ml @ 100 mls/hr IV.SIG [facility]NALY[facility] Rx#:[id number] Oral 50 / 50 Anesthesia Amount 3000 / 3000 Output: Estimated Blood Loss 500 / 500 Urine Amount (Catheter) 500 / 500 Straight 500 / 500 Other: Weight On Admission 68 kg Narrative: GENERAL: NAD, AAOx3 SKIN: Warm and dry. HEENT: Atraumatic. Normocephalic. No scleral icterus. No injection or drainage. No nasal bleeding or discharge. Mucous membranes pink and moist. NECK: Trachea midline. No JVD. CARDIO: Regular RESP: Clear to auscultation. Breath sounds equal bilaterally. ABD: +BS, soft, non-tender, nondistended. EXT: No swelling, bandages to the right knee are c/d/i. RLE in CPM machine NEURO: Awake and alert. Motor grossly within normal limits. Normal speech. PSYCHIATRIC: Appropriate mood and affect; insight and judgment normal. Results - Labs Labs: Laboratory Results - last 24 hr 05/02/18 06:10 Blood Type O Positive Antibody Screen Negative - Imaging Impressions Knee X-Ray 05/02/18 06:40 CONCLUSION: Expected post surgical changes status post revision arthroplasty. Assessment and Plan - Assessment (1) Osteoarthritis Code(s): M19.90 - Unspecified osteoarthritis, unspecified site Status: Chronic Plan: Osteoarthritis Hx of septic arthritis - Pt is an 83 y/o female with HTN, osteoporosis, emphysema and hx of septic arthritis. - Pt had previously had a right TKA in 10/2014 which required I&D with polyethylene exchange in 11/2014 due to infection. Earlier this year she was admitted for septic arthritis in the right knee in 01/2018 and was found to have an MSSA infection. She underwent I&D of the right TKA with removal of prosthesis and placement of abx spacer with Dr. Toney 02/02/18. Pt was discharged on IV Vancomycin which was completed on 03/16/18. - Pt was read[place] [facility] [place] and underwent right knee revision total knee arthroplasty, femoral and tibial components with Dr. Toney. - Post-op pain control per Ortho - PT daily - IS - Constipation precautions - Supportive care - She has Cefazolin ordered per Ortho. - Becker cath in place - DVT prophylaxis HTN - Home meds resumed - Monitor GERD - PPI Hyperlipidemia - Cont. home med The exam, history, and the medical decision-making described in the above note were completed with the assistance of the mid-level provider. I reviewed and agree with the findings presented. I attest that I had a [id number] encounter with the patient on the same day, and personally performed and documented my assessment and findings in the medical record. (2) HTN (hypertension) Code(s): I10 - Essential (primary) hypertension Status: Chronic
[2018-05-02] MEDS ORDERED: Glycopyrrolate Inj 1 MG/5 ML Syringe IV.PUSH ONE (12:00)
[2018-05-02] MEDS ORDERED: Phenylephrine/NS 1000 MCG/10ML Syringe IV.PUSH ONE (12:00)
[2018-05-02] MEDS ORDERED: Neostigmine Inj 5 MG/5 ML Syringe IV.PUSH ONE (12:00)
[2018-05-02] MEDS ORDERED: Lidocaine PF 1% Inj 5 ML Syringe INFILTRATN ONE (12:00)
--- NOTE | 2018-05-02 12:34 | MP ---
cc: Jignesh Toney MD DATE OF OPERATION: 05/02/2018 PREOPERATIVE DIAGNOSIS: Right knee arthroplasty with infection, status post removal and placement of antibiotic spacer. POSTOPERATIVE DIAGNOSIS: Right knee arthroplasty with infection, status post removal and placement of antibiotic spacer. PROCEDURE PERFORMED: Right knee revision total knee arthroplasty, femoral and tibial components. SURGEON: Jignesh Toney MD [employer] ENGINEER: BOUCHRA Lang ANESTHESIA: General with an adductor canal femoral nerve block. ESTIMATED BLOOD LOSS: 250 mL. TOURNIQUET TIME: 52 minutes at 250 mmHg. COMPLICATIONS: None. IMPLANTS USED: DePuy revision Sigma size 2.5 femoral component, right, with 4 mm medial and lateral distal augments, a 31 mm porous sleeve, 75 x 14 mm femoral stem. Tibial component is a 2.5 rotating tibia platform with a 29 mm tibial metaphyseal sleeve and a 75 x 12 mm tibial stem. The polyethylene insert was a 22.5 mm polyethylene highly cross-linked insert. JUSTIFICATION: This patient is an 83-year-old female who has undergone previous right total knee arthroplasty. She did well after surgery for many years, but then developed the acute onset of hematogenous seeding and septic arthritis of her right knee. She has undergone previous irrigation and debridement surgery of the right knee with removal of the prosthesis and placement of an antibiotic spacer, as well as the prolonged IV antibiotic therapy. She has shown clinical resolution of the infection and cleared by infectious disease doctor. The patient counseled as to the risks, benefits and alternatives to the above-named proposed surgical procedure. The risks were discussed, which include, but not limited to anesthesia, bleeding, recurrent infection, pain, stiffness, failure of components, blood clots, pulmonary embolism, and even . The patient did wish to proceed with surgery. She favored the benefit over the risks. PROCEDURAL IN DETAIL: Written consent was obtained. The patient was identified by name. She did receive preoperative adductor canal right femoral nerve block by the anesthesiologist, Dr. Foote. The patient was taken to the operating room. General anesthesia was administered, as well as 2 grams of IV Ancef and 1 gram of IV vancomycin. A well-padded tourniquet was placed on the right thigh. The right lower extremity prepped and draped using isopropyl alcohol, Hibiclens solution and ChloraPrep solution. After timeout was performed, Esmarch bandage was used to exsanguinate the right lower extremity. Tourniquet inflated to 250 mmHg. A longitudinal incision was made over the anterior aspect of the right knee. A medial parapatellar arthrotomy was performed. A lateral release was also performed to allow for exposure. An extensive debridement was performed with 10 blade scalpel to include the suprapatellar pouch with synovectomy and debridement of the medial and lateral gutters, as well as the intercondylar notch. At this point, the femoral and tibial antibiotic spacers were removed. A drill pin was then used to drill into the intramedullary canal of the tibia. Sequential reaming began with size 10 and was carried through size 12. Subsequently, a size 12 metaphyseal sleeve broach was then placed off the top of the broach. An oscillating saw was used to perform the tibial cut. Resected about 2 mm of tibia to create a smooth flat surface. At this point, a size 2.5 trial tibial insert baseplate was placed on the broach stem with a 75 x 12 mm trial sleeve and stem. Attention turned to the femur where an intramedullary guide anabel was placed and sequential reaming up to size 14 was performed. Subsequently, a 31 mm metaphyseal sleeve was placed within the femur. The femoral cutting block was then placed and a +4 medial and lateral distal femoral cut was performed with a 2.5 mm femoral guide, placed over the intramedullary femoral anabel. The anterior, posterior chamfer cuts were performed. A TC3 box was then placed over the intramedullary femoral anabel and the box cut was performed. At this point, the trial components were placed and subsequent final components inserted. With the inserted final components, the leg could achieve full extension 0 degrees and flexion 140. No evidence of tibial liftoff. Varus/valgus balance appeared appropriate, symmetric and the patella was noted to track centrally. Tourniquet deflated. Bovie cautery was used for hemostasis. The wound was thoroughly irrigated with sterile saline pulse lavage with antibiotic-impregnated solution. Of note, within the polymethylmethacrylate cement I did also mix 1 gram of IV vancomycin. At this point, the medial parapatellar arthrotomy incision was closed with #1 Vicryl suture. The lateral release was closed with #1 Vicryl suture, subcuticular layer 2-0 Vicryl suture. Skin incision closed with bernardino. Sterile dressing applied. The patient tolerated the procedure well. No intraoperative complications noted. Andrea Garcia, physician early childhood assistant certified, was present for the entire procedure to include patient positioning, the procedure itself. The medical necessity of physician early childhood assistant was indicated in this case due to complexity of procedure. He assisted with appropriate manipulation of the leg, retraction of muscle, tendon, bone, neurovascular structures. He assisted with preparation of bone and also implantation of the femoral and tibial revision components. Jignesh Toney MD [facility] , 09:12 AM , 09:24 AM
[2018-05-02] MEDS: Vancomycin Inj 1,000 MG in Sodium Chlor 0.9% Inj 250 ML IV.SIG SCH (20:54)
[2018-05-02] MEDS ORDERED: Zolpidem Tartrate 5 MG Tablet PO PRN (21:00)
[2018-05-03 05:21] LABS: Hemoglobin 7.5 gm/dL (11.6-15.3)
[2018-05-03 05:49] LABS: Calcium 8.3 mg/dL (8.5-10.1); Carbon Dioxide 26.7 meq/L (21.0-32.0); Potassium 4.3 meq/L (3.5-5.1)
[2018-05-03] MEDS: Vancomycin Inj 1,000 MG in Sodium Chlor 0.9% Inj 250 ML IV.SIG SCH (08:54)
[2018-05-03] MEDS: Senna/Docusate Sodium 8.6/50 MG Tablet PO SCH ×2 (08:55→20:18)
[2018-05-03] MEDS: Montelukast 10 MG Tablet PO SCH (08:55)
[2018-05-03] MEDS: Verapamil SR 240 MG Tablet PO SCH (08:55)
[2018-05-03] MEDS: Multivitamin/Minerals Therapeutic Tablet PO SCH ×2 (08:55→20:18)
[2018-05-03] MEDS: Pantoprazole Sodium 20 MG DR Tablet PO SCH ×2 (08:56→20:18)
[2018-05-03] MEDS: Enoxaparin Inj 40 MG/0.4 ML Syringe SQ SCH (08:56)
--- NOTE | 2018-05-03 09:21 | P.PNOP ---
Subjective Interval history: pain controlled. Physical Exam Vital signs: Vital Signs 05/02/18 09:23 05/02/18 09:30 05/02/18 09:45 Temperature 97.4 F L Pulse Rate 98 H 83 65 Respiratory Rate 22 20 21 Blood Pressure 174/75 H 170/74 H 169/72 H Pulse Oximetry 95 95 97 05/02/18 10:00 05/02/18 10:15 05/02/18 10:30 Temperature Pulse Rate 66 60 61 Respiratory Rate 23 19 20 Blood Pressure 160/68 H 176/76 H 170/70 H Pulse Oximetry 97 99 98 05/02/18 11:00 05/02/18 11:09 05/02/18 12:00 Temperature Pulse Rate 55 L 59 L Respiratory Rate 19 16 Blood Pressure 161/70 H 158/68 H Pulse Oximetry 100 95 95 05/02/18 12:14 05/02/18 13:00 05/02/18 13:50 Temperature Pulse Rate 63 Respiratory Rate 21 20 Blood Pressure 159/67 H Pulse Oximetry 94 L 99 05/02/18 14:00 05/02/18 14:23 05/02/18 15:00 Temperature Pulse Rate 58 L 67 Respiratory Rate 22 20 Blood Pressure 161/70 H 138/78 Pulse Oximetry 100 99 97 05/02/18 15:33 05/02/18 20:00 05/03/18 00:00 Temperature 98.2 F 97.7 F 98.4 F Pulse Rate 60 60 60 Respiratory Rate 17 16 16 Blood Pressure 142/67 H 140/60 159/68 H Pulse Oximetry 99 97 99 05/03/18 00:04 Temperature Pulse Rate Respiratory Rate 20 Blood Pressure Pulse Oximetry Intake & Output 05/02/18 05/03/18 05/03/18 18:59 06:59 18:59 Intake Total 3540.2 / 3540.2 610 / 610 Output Total 1050 / 1050 Balance 2490.2 / 2490.2 610 / 610 Weight 68 kg Intake: IV 1890.2 / 1890.2 250 / 250 LR 1000 mL Inj 1,000 ML @ 80 1400 / 1400 mls/hr IV.CONT .[id number] [facility] Rx# :[id number] Cyklokapron Inj 3,000 MG In NS 240.2 / 240.2 Inj 100 ML @ 200 mls/hr IV.SIG ONCE [facility] Rx#:[id number] Vancomycin Inj 1 gm In 200 ml @ 200 / 200 200 mls/hr IV.SIG [employer] [facility] Rx#:[id number] Vancomycin Inj 1,000 MG In NS 250 / 250 Inj 250 ML @ 200 mls/hr IV.SIG Q12H [facility] Rx#:[id number] Ancef 2 GM Premix Inj 2 gm In 50 / 50 50 ml @ 100 mls/hr IV.SIG [employer] [facility] Rx#:[id number] Oral 150 / 150 360 / 360 Anesthesia Amount 1500 / 1500 Output: Estimated Blood Loss 250 / 250 Urine Amount (Catheter) 800 / 800 Straight 800 / 800 Other: # Voids 2 3 Narrative: in bed, nad dressing c/d/i neg robert nvi - Urinary Catheter Management Straight Cath placed during this visit: yes, but has since been removed by the nurse Reason for continuing: Not indwelling catheter Insertion date: 05/02/18 Insertion time: 10:05 Removal date: 05/02/18 Removal time: 13:53 Results - Labs CBC & Chem 7: 05/03/18 04:50 05/03/18 04:56 Laboratory Results - last 24 hr 05/03/18 05/03/18 04:50 04:56 Hgb 7.5 L Hct 23.0 L Sodium 139 Potassium 4.3 Chloride 107 Carbon Dioxide 26.7 Anion Gap 5 BUN 19 H Creatinine 1.13 H Estimated GFR 46 L Random Glucose 111 H Calcium 8.3 L - Imaging Impressions Knee X-Ray 05/02/18 06:40 CONCLUSION: Expected post surgical changes status post revision arthroplasty. Assessment and Plan - Ortho Post Op Day # 1 - Assessment and Plan s/p removal of abx spacer and Revision R TKA wbat ok to maintain dressing unless saturated lovenox d/c planning home with hhc and pt - planning for Monday f/up dr. platt 2 weeks
--- NOTE | 2018-05-03 09:22 | P.DCO ---
- Physical Therapy Physical Therapy: Gait training, Transfer training, bed to chair Knee: Total knee, Protocol: Right, Full weight bearing Right Lower Extremity Weight Bearing: Weight bearing as tolerated - Nursing RN: 3 days/week x 2 weeks Nursing: Alex teaching, Dressing changes Dressing changes: Daily dressing change - Certification Need for Home Health services: I have seen patient Jimmy Urban on 05/03/18. My clinical findings support the need for the requested home health care services because: Need for Home Health Services: Limited ability to care for self, High risk of falls Homebound Certification: I certify that my clinical findings support that this patient is homebound because: Homebound Certification: Post-op weakness, Unsteady gait/balance
[2018-05-04 04:31] LABS: Hematocrit 22.3 % (35.0-46.0); Hemoglobin 7.2 gm/dL (11.6-15.3)
[2018-05-04 04:56] LABS: Calcium 8.8 mg/dL (8.5-10.1); Carbon Dioxide 27.8 meq/L (21.0-32.0); Potassium 4.1 meq/L (3.5-5.1)
--- NOTE | 2018-05-04 08:26 | P.PNOP ---
Subjective Interval history: pain controlled. ready to go home. Physical Exam Vital signs: Vital Signs 05/03/18 12:00 05/03/18 16:00 05/03/18 20:00 Temperature 98.3 F 98.4 F 98.2 F Pulse Rate 74 67 67 Respiratory Rate 17 17 18 Blood Pressure 129/61 135/58 L 144/60 H Pulse Oximetry 94 L 94 L 96 05/04/18 00:00 Temperature 98.1 F Pulse Rate 59 L Respiratory Rate 18 Blood Pressure 146/66 H Pulse Oximetry 96 Intake & Output 05/03/18 05/04/18 05/04/18 18:59 06:59 18:59 Intake Total 1440 / 1440 400 / 400 Balance 1440 / 1440 400 / 400 Weight 67.5 kg Intake: Oral 1440 / 1440 400 / 400 Other: # Voids 5 4 Date of Last Bowel Movement 05/02/18 Narrative: in bed, nad dressing c/d/i neg robert nvi - Urinary Catheter Management Straight Cath placed during this visit: yes, but has since been removed by the nurse Reason for continuing: Not indwelling catheter Insertion date: 05/02/18 Insertion time: 10:05 Removal date: 05/02/18 Removal time: 13:53 Results - Labs CBC & Chem 7: 05/04/18 03:49 05/04/18 03:49 Laboratory Results - last 24 hr 05/04/18 05/04/18 03:49 03:49 Hgb 7.2 L Hct 22.3 L Sodium 140 Potassium 4.1 Chloride 105 Carbon Dioxide 27.8 Anion Gap 7 BUN 19 H Creatinine 1.11 H Estimated GFR 47 L Random Glucose 88 Calcium 8.8 Assessment and Plan - Ortho Post Op Day # 2 - Problem List (1) Osteoarthritis Code(s): M19.90 - Unspecified osteoarthritis, unspecified site Status: Chronic - Assessment and Plan s/p removal of abx spacer and Revision R TKA wbat ok to maintain dressing unless saturated lovenox post-op anemia - asymptomatic. declines transfusion d/c planning home with h[facility] and pt - cleared for d/c by ortho f/up dr. platt 2 weeks
[2018-05-04] MEDS: Verapamil SR 240 MG Tablet PO SCH (08:48)
[2018-05-04] MEDS: Enoxaparin Inj 40 MG/0.4 ML Syringe SQ SCH (08:48)
[2018-05-04] MEDS: Multivitamin/Minerals Therapeutic Tablet PO SCH (08:48)
[2018-05-04] MEDS: Senna/Docusate Sodium 8.6/50 MG Tablet PO SCH (08:48)
[2018-05-04] MEDS: Pantoprazole Sodium 20 MG DR Tablet PO SCH (08:48)
[2018-05-04] MEDS: Montelukast 10 MG Tablet PO SCH (08:48)
[2018-05-04 18:30] VITALS: BP 127/66; PULSE 60; RESP 16; TEMP 98.2; O2SAT 94
--- NOTE | 2018-05-08 09:31 | MD ---
cc: Jignesh Toney MD DATE OF DISCHARGE: 05/04/2018 ADMITTING DIAGNOSIS: Right knee arthroplasty with infection, status post removal and placement of antibiotic spacer. DISCHARGE DIAGNOSIS: Right knee arthroplasty with infection, status post removal and placement of antibiotic spacer. HISTORY OF PRESENT ILLNESS: Ms. Urban is an 83-year-old female who previously underwent a right total knee arthroplasty. She did well with this total knee arthroplasty for numerous years and suddenly developed acute onset of a septic arthritis of the right knee. She previously underwent irrigation and debridement with removal of the prosthesis and placement of antibiotic spacer, as well as prolonged IV antibiotic therapy. She has shown clinical resolution of the infection and has been cleared by infectious disease physician. The patient was later seen in the office at the [facility] by Dr. Jignesh Toney. The option of removal of the antibiotic spacer and placement of revision total knee arthroplasty was discussed. Risks, benefits, indications discussed. The patient did elect to proceed with surgical intervention. DATE OF SURGERY: 05/02/2018, right knee revision total knee arthroplasty, femoral and tibial components. POSTOP: After surgery, the patient was admitted to [facility] where she received appropriate medical management, pain control, DVT prophylaxis, as well as physical therapy. DISCHARGE: Once we discharged from the hospital, the patient is cleared to go home where she will receive home health care and home physical therapy. She is in stable condition. She may weight bear as tolerated. She has been instructed on wound care management. The patient has been provided prescriptions for pain control and DVT prophylaxis medication. She has also been provided a followup appointment in approximately 2 weeks from her date of surgery. The patient asked appropriate questions which have been answered. The patient is cleared for discharge. Dictated by BOUCHRA Head Jignesh Toney MD JWM/DL , 08:25 AM , 08:30 AM
== END 2018-05-04 11:41 | disposition home health service (06) ==
LOC: HSDI 05:17 → N06 15:32
PROVIDERS: ADMIT Orthopaedic Surgery Sports Medicine; ATTEND Orthopaedic Surgery Sports Medicine

== ENCOUNTER 2018-09-08 17:14 | Inpatient (IN) ==
[2018-09-08] MEDS ORDERED: Acetaminophen 325 MG Tablet PO ONE (18:03)
--- NOTE | 2018-09-08 18:08 | ED ---
HPI General Chief Complaint: Weakness Stated Complaint: Weakness Time Seen by Provider: 09/08/18 17:32 Source: patient Mode of arrival: wheelchair Limitations: no limitations History of Present Illness HPI Narrative: The patient is a 83-year-old female who presents to the emergency department via private vehicle call for right leg/knee pain and swelling. The patient has a history of previous total right knee that was performed by Dr. Toney approximately 4 years ago. The patient states she had multiple infections for the right knee requiring the need of a spacer. The patient then had a revision of her knee performed over the summertime. The patient states she was on antibiotics for a prolonged period and finished antibiotics in June. The patient states she developed some right leg/knee swelling and pain earlier today, notes the area is warm to touch. The patient also notes a dry nonproductive cough. She denies any chest pain, shortness of breath, nausea, vomiting, or abdominal pain. The patient's primary physician is Dr. Everette Garcia. Symptoms are moderate. MD complaint: Reports other Injury: Right: knee Type of Injury: Reports other Place: Reports home Severity: moderate Severity scale (1-10): 5 Relieving factors: nothing Exacerbating factors: other Context: Reports other Associated symptoms: Reports swelling Other symptoms: Reports other Related Data Home Medications Medication Instructions Recorded Confirmed clonidine HCl 0.1 mg PO BID 05/02/18 09/08/18 fluticasone 1 spray INTRANASAL DAILY 05/02/18 09/08/18 losartan 50 mg PO DAILY 05/02/18 09/08/18 lovastatin 20 mg PO DAILY 05/02/18 09/08/18 montelukast 10 mg PO DAILY 05/02/18 09/08/18 omeprazole 20 mg PO BID 05/02/18 09/08/18 triamterene-hydrochlorothiazid 1 cap PO DAILY 05/02/18 09/08/18 verapamil 240 mg PO DAILY 05/02/18 09/08/18 Allergies Allergy/AdvReac Type Severity Reaction Status Date / Time cefuroxime Allergy Intermediate Rash Verified 09/08/18 17:23 aspirin AdvReac Intermediate GI Verified 09/08/18 17:23 codeine AdvReac Intermediate HYPER Verified 09/08/18 17:23 morphine AdvReac Unknown states Verified 09/08/18 17:23 causes confusion Review of Systems ROS: all other systems reviewed are negative PMFSH Social History Social History Substance History: No History of Abuse Second Hand Smoke Exposure: No Smoking Status: Never smoker Tobacco Type: Cigarettes How Often Do You Have a Drink Containing Alcohol: Never Recent Travel in [facility] within the Last 8 Weeks: No Recent Out of Country Travel within the Last 8 Weeks: No Immunization History Tetanus Immunization: Unsure Exam Narrative Exam Narrative: GENERAL: Awake, alert, pleasant 83-year-old female who appears her stated age and is in no acute respiratory distress. SKIN: Focused skin assessment warm/dry. HEAD: Atraumatic. Normocephalic. EYES: No injection or drainage ENT: No nasal bleeding or discharge. Mucous membranes pink and moist. NECK: Trachea midline. No JVD. CARDIOVASCULAR: Regular, tachycardic with a heart rate of 100. RESPIRATORY: Mild tachypnea with a respiratory rate of 26, diminished breath sounds in the bases bilaterally. GASTROINTESTINAL: Abdomen soft, non-tender, nondistended. No rebound tenderness. MUSCULOSKELETAL: The right lower extremity is more edematous than the left lower extremity. Well-healed scar of the anterior aspect of the right knee. The right knee is warm to palpation compared to the left. Mild erythema over the lateral aspect of the right knee and right fibula. Back: No CVA tenderness. NEUROLOGICAL: Awake and alert. No obvious cranial nerve deficits. Motor grossly within normal limits. Normal speech. PSYCHIATRIC: Appropriate mood and affect; insight and judgment normal. Course Initial Documented Vital Signs Temperature 99.9 F H 09/08/18 17:26 Pulse Rate 92 H 09/08/18 17:26 Respiratory Rate 32 H 09/08/18 17:26 Blood Pressure 195/70 H 09/08/18 17:26 Pulse Oximetry 91 L 09/08/18 17:26 Last Documented Vital Signs Temperature 99.9 F H 09/08/18 17:26 Pulse Rate 96 H 09/08/18 18:23 Respiratory Rate 26 H 09/08/18 18:23 Blood Pressure 179/74 H 09/08/18 18:23 Pulse Oximetry 97 09/08/18 18:23 Medical Decision Making [facility] Narrative Medical decision making narrative: IV was established, labs are drawn and sent, and the patient was placed on cardiac telemetry monitoring and continuous pulse oximetry monitoring. EKG was ordered and interpreted. Chest x-ray was obtained. Blood culture and lactic acid were sent to lab and patient was administered 1 L of IV fluids. Ultrasound of the right lower extremity was obtained to rule out DVT. The patient's white count was elevated at 26,000. The patient's UA does have some WBCs, however, the patient's right knee is swollen and warm to the touch, concern for possible re-infection and/or cellulitis. Ultrasound of the right lower extremity is negative for DVT, does have nonspecific right inguinal lymphadenopathy. The patient was covered with Zosyn and vancomycin. A call was placed to the patient's on-call orthopedist, Dr. Toney, as well as [facility] for admission. I discussed the patient with Dr. Sena who recommends admission to [facility]. I also discussed the patient with Dr. Ace, on-call for Dr. Toney, and agrees with transfer and IV antibiotics. Medical Screen Exam Complete: Yes Emergency Medical Condition: Yes Differential Diagnosis Differential Diagnosis: Differential diagnosis includes sepsis, pneumonia, UTI, cellulitis, septic joint, DVT, influenza, acute kidney injury, dehydration. Lab Data Result diagrams: 09/08/18 17:55 09/08/18 17:55 Lab Results 09/08/18 09/08/18 09/08/18 Range/Units 17:55 17:55 17:55 CBC w Diff Auto diff final WBC 26.0 H (4.0-11.0) th/mm3 RBC 4.71 (4.00-5.30) mil/mm3 Hgb 11.9 (11.6-15.3) gm/dL Hct 35.9 (35.0-46.0) % MCV 76.2 L (80.0-100.0) fL MCH 25.2 L (27.0-34.0) pg MCHC 33.0 (32.0-36.0) % RDW 19.0 H (11.6-17.2) % Plt Count 187 (150-450) th/mm3 MPV 9.6 (7.0-11.0) fL Neut % (Auto) 87.4 H (16.0-70.0) % Lymph % (Auto) 6.4 L (9.0-44.0) % [place] % (Auto) 5.9 (0.0-8.0) % Eos % (Auto) 0.1 (0.0-4.0) % Baso % (Auto) 0.2 (0.0-2.0) % Neut # (Auto) 22.7 H (1.8-7.7) th/mm3 Lymph # (Auto) 1.7 (1.0-4.8) th/mm3 [place] # (Auto) 1.5 H (0.0-0.9) th/mm3 Eos # (Auto) 0.0 (0.0-0.4) th/mm3 Baso # (Auto) 0.1 (0.0-0.2) th/mm3 WBC Differential . Differential Comment . Sodium 138 (136-145) meq/L Potassium 3.3 L (3.5-5.1) meq/L Chloride 103 (98-107) meq/L Carbon Dioxide 26.0 (21.0-32.0) meq/L Anion Gap 9 (5-15) meq/L BUN 17 (7-18) mg/dL Creatinine 1.10 H (0.50-1.00) mg/dL Estimated GFR 48 L (>89) mL/min Random Glucose 118 H (74-106) mg/dL Lactic Acid 1.4 (0.4-2.0) mmol/L Calcium 9.8 (8.5-10.1) mg/dL Magnesium 1.7 (1.5-2.5) mg/dL Total Bilirubin 0.7 (0.2-1.0) mg/dL AST 14 L (15-37) U/L ALT 15 (10-53) U/L Alkaline Phosphatase 88 (45-117) U/L Total Protein 8.3 H (6.4-8.2) g/dL Albumin 3.7 (3.4-5.0) g/dL Urine Color (Yellw/Straw) Urine Clarity (Clear) Urine pH (5.0-8.5) Ur Specific [place] (1.002-1.035) Urine Protein (Neg-Trace) mg/dL Urine Glucose (UA) (Negative) mg/dL Urine Ketones (Negative) mg/dL Urine Occult Blood (Negative) Urine Nitrate (Negative) Urine Bilirubin (Negative) Urine Urobilinogen (Less than 2) mg/dL Ur Leukocyte Esterase (Negative) Urine RBC (0-3) /hpf Urine WBC (0-5) /hpf Urine WBC Clumps (None) Ur Squamous Epith Cells (0-5) /hpf Urine Bacteria (None) /hpf Micro UA Comment Ur Microscopic Review Urine Culture Comments 09/08/18 Range/Units 18:10 CBC w Diff WBC (4.0-11.0) th/mm3 RBC (4.00-5.30) mil/mm3 Hgb (11.6-15.3) gm/dL Hct (35.0-46.0) % MCV (80.0-100.0) fL MCH (27.0-34.0) pg MCHC (32.0-36.0) % RDW (11.6-17.2) % Plt Count (150-450) th/mm3 MPV (7.0-11.0) fL Neut % (Auto) (16.0-70.0) % Lymph % (Auto) (9.0-44.0) % [place] % (Auto) (0.0-8.0) % Eos % (Auto) (0.0-4.0) % Baso % (Auto) (0.0-2.0) % Neut # (Auto) (1.8-7.7) th/mm3 Lymph # (Auto) (1.0-4.8) th/mm3 [place] # (Auto) (0.0-0.9) th/mm3 Eos # (Auto) (0.0-0.4) th/mm3 Baso # (Auto) (0.0-0.2) th/mm3 WBC Differential Differential Comment Sodium (136-145) meq/L Potassium (3.5-5.1) meq/L Chloride (98-107) meq/L Carbon Dioxide (21.0-32.0) meq/L Anion Gap (5-15) meq/L BUN (7-18) mg/dL Creatinine (0.50-1.00) mg/dL Estimated GFR (>89) mL/min Random Glucose (74-106) mg/dL Lactic Acid (0.4-2.0) mmol/L Calcium (8.5-10.1) mg/dL Magnesium (1.5-2.5) mg/dL Total Bilirubin (0.2-1.0) mg/dL AST (15-37) U/L ALT (10-53) U/L Alkaline Phosphatase (45-117) U/L Total Protein (6.4-8.2) g/dL Albumin (3.4-5.0) g/dL Urine Color Yellow (Yellw/Straw) Urine Clarity Cloudy H (Clear) Urine pH 6.0 (5.0-8.5) Ur Specific [place] 1.025 (1.002-1.035) Urine Protein 300 or greater H (Neg-Trace) mg/dL Urine Glucose (UA) Negative (Negative) mg/dL Urine Ketones Negative (Negative) mg/dL Urine Occult Blood Small H (Negative) Urine Nitrate Positive H (Negative) Urine Bilirubin Negative (Negative) Urine Urobilinogen 0.2 (Less than 2) mg/dL Ur Leukocyte Esterase Negative (Negative) Urine RBC 0-3 (0-3) /hpf Urine WBC 21-50 H (0-5) /hpf Urine WBC Clumps Few H (None) Ur Squamous Epith Cells 0-5 (0-5) /hpf Urine Bacteria Many H (None) /hpf Micro UA Comment Culture indicated Ur Microscopic Review Microscopic reviewed Urine Culture Comments Culture indicated Imaging Data Radiologist's impression: Chest X-Ray 09/08/18 18:03 CONCLUSION: 1. No acute abnormality. Knee X-Ray 09/08/18 18:03 CONCLUSION: 1. Hardware within the distal femur and proximal tibia status post revision of right knee arthroplasty. 2. No acute fracture or dislocation. Venous Doppler Study 09/08/18 18:08 CONCLUSION: 1. The study is negative for lower extremity deep venous thrombosis. 2. Right inguinal lymphadenopathy which is nonspecific. ECG Data EKG Prior to Arrival: No Attestation: I personally reviewed and interpreted this ECG as follows: Interpretation: EKG reveals sinus rhythm with occasional supraventricular premature complex. Left ventricular hypertrophy. Nonspecific ST changes. Discharge Plan Discharge Disposition Patient Disposition: 30 Still Patient Discharge Condition Condition: Stable Discharge Details Diagnosis: Sepsis, Acute UTI, Knee pain, right Physicians Team ED Provider: Ming Benedict Primary Care Provider: Everette Garcia Attending Provider: Jonathan Castillo Status ED Status: Admitted Patient
[2018-09-08 18:13] LABS: Baso # (Auto) 0.1 th/mm3 (0.0-0.2); Baso % (Auto) 0.2 % (0.0-2.0); Eos % (Auto) 0.1 % (0.0-4.0); Hematocrit 35.9 % (35.0-46.0); Hemoglobin 11.9 gm/dL (11.6-15.3); Lymph # (Auto) 1.7 th/mm3 (1.0-4.8); Lymph % (Auto) 6.4 % (9.0-44.0); Mean Corpuscular Hemoglobin 25.2 pg (27.0-34.0); Mean Corpuscular Volume 76.2 fL (80.0-100.0); Mean Platelet Volume 9.6 fL (7.0-11.0); Mono # (Auto) 1.5 th/mm3 (0.0-0.9); Mono % (Auto) 5.9 % (0.0-8.0); Neut # (Auto) 22.7 th/mm3 (1.8-7.7); Neut % (Auto) 87.4 % (16.0-70.0); Platelet Count 187 th/mm3 (150-450); Red Blood Count 4.71 mil/mm3 (4.00-5.30)
[2018-09-08] MEDS ORDERED: Sod Chloride 0.9% Inj 1,000 ML IV.SIG SCH (18:15)
[2018-09-08 18:27] LABS: Chloride 103 meq/L (98-107); Potassium 3.3 meq/L (3.5-5.1); Sodium 138 meq/L (136-145)
[2018-09-08 18:32] LABS: Albumin 3.7 g/dL (3.4-5.0); Anion Gap 9 meq/L (5-15); Blood Urea Nitrogen 17 mg/dL (7-18); Calcium 9.8 mg/dL (8.5-10.1); Glucose,Random 118 mg/dL (74-106); Magnesium 1.7 mg/dL (1.5-2.5)
[2018-09-08 18:35] LABS: Alanine Aminotransferase 15 U/L (10-53); Aspartate Aminotransferase 14 U/L (15-37); Glomerular Filtration Rate 48 mL/min (>89)
[2018-09-08 18:37] LABS: Total Protein 8.3 g/dL (6.4-8.2)
--- NOTE | 2018-09-08 18:37 | US ---
EXAM DATE: 09/08/2018 6:31 PM EST AGE/SEX: 83 years / Female INDICATIONS: Right leg pain and swelling. CLINICAL DATA: This is the patient's initial encounter. Patient reports that signs and symptoms have been present for 1 day and indicates a pain score of 8/10. MEDICAL/SURGICAL HISTORY: . GERD. HTN. Hypercholesterol. . Right total knee replacement. Ca taract. Tonsillectomy. COMPARISON: [facility], MR KNEE W/O CONTRAST, RIGHT, 09/20/2014. . TECHNIQUE: Venous ultrasound of both lower extremities was performed from the inguinal ligament to t he proximal calf. Real-time, color Doppler and spectral tracing, compression and augmentation techni ques were used. FINDINGS: Normal compression of the deep venous system from the inguinal region to the proximal calf . No echogenic clot is seen. Normal response of the venous system to augmentation and respiration. Ri ght inguinal lymphadenopathy is noted with the largest lymph node measuring 2.7 x 2.6 x 1.4 cm. CONCLUSION: 1. The study is negative for lower extremity deep venous thrombosis. 2. Right inguinal lymphadenopathy which is nonspecific. Electronically signed by: Gaetano Rand MD 09/08/2018 6:36 PM EST
[2018-09-08 18:38] LABS: Alkaline Phosphatase 88 U/L (45-117)
[2018-09-08 18:41] LABS: Bilirubin,Urine Negative (Negative); Clarity,Urine Cloudy (Clear); Color,Urine Yellow (Yellw/Straw); Glucose,Urine (UA) Negative (Negative); Leukocyte Esterase,Urine Negative (Negative); Nitrite,Urine Positive (Negative); Specific Gravity,Urine 1.025 (1.002-1.035); Urobilinogen,Urine 0.2 mg/dL (Less than 2)
--- NOTE | 2018-09-08 18:50 | XR ---
EXAM DATE: 09/08/2018 6:46 PM EST AGE/SEX: 83 years / Female INDICATIONS: Fever. CLINICAL DATA: This is the patient's initial encounter. Patient reports that signs and symptoms have been present for 1 day and indicates a pain score of 8/10. MEDICAL/SURGICAL HISTORY: None. Total knee replacement, right. [place] [facility] [place] . FINDINGS: No new focal pleural or parenchymal opacities. Mild diffuse interstitial prominence. The cardiomedias tinal contours are stable. Osseous structures are intact. CONCLUSION: 1. No acute abnormality. Electronically signed by: Louie Leyva MD 09/08/2018 6:49 PM EST
--- NOTE | 2018-09-08 18:55 | XR ---
EXAM DATE: 09/08/2018 6:49 PM EST AGE/SEX: 83 years / Female INDICATIONS: Right knee pain CLINICAL DATA: This is the patient's initial encounter. Patient reports that signs and symptoms have been present for 1 day and indicates a pain score of 8/10. MEDICAL/SURGICAL HISTORY: None. Total knee replacement, right. COMPARISON: [facility] – [place] KNEE LIMITED RIGHT 2V, 05/02/2018. . FINDINGS: Hardware is noted within the distal femur and proximal tibia status post revision of right knee arthr oplasty. There is no acute fracture or dislocation. CONCLUSION: 1. Hardware within the distal femur and proximal tibia status post revision of right knee arthroplas ty. 2. No acute fracture or dislocation. Electronically signed by: Gaetano Rand MD 09/08/2018 6:53 PM EST
[2018-09-08 19:02] LABS: Bacteria,Urine Many /hpf; RBC,Urine 0-3 /hpf (0-3); Squamous Epithelial Cell,Urine 0-5 /hpf (0-5); WBC,Urine 21-50 /hpf (0-5)
[2018-09-08] MEDS ORDERED: Piperacil/Tazo 4.5 GM Premix 4.5 GM/100 ML BAG IV.SIG ONE (19:04)
[2018-09-08] MEDS ORDERED: Vancomycin Inj 1,000 MG in Sodium Chlor 0.9% Inj 250 ML IV.SIG SCH (20:00)
[2018-09-08] MEDS ORDERED: Vancomycin Consult Pharmacy 1 EACH OTHER SCH (21:45)
--- NOTE | 2018-09-08 21:57 | P.HP ---
History of Present Illness Service: [facility] Primary Care Physician: Everette Garcia MD Chief Complaint: Pain and swelling to right knee for 1 day History of Present Illness: 83-year-old white female who presented to the emergency room for right leg and right knee pain and swelling. Patient has a history of previous total right knee that was performed proximally [address] Toney. The patient states she has had multiple infections for the right knee requiring the need for of a spacer. Patient then had a revision of her right knee in April. Patient states that from April until June she was on Antibiotics. Today she developed some right knee and leg swelling and pain and notes that the area is warm to touch. Other significant complaints include generalized weakness nonspecific dry cough denies any chest pain shortness of breath nausea vomiting or abdominal pain. Workup in the ER included an x-ray of the knee which was unremarkable venous ultrasound was done which essentially was negative there was some nonspecific adenopathy seen in the groin area, and the patient had a WBC count of greater than 20,000 with a urine suggestive of a UTI. ER discussed case with orthopedics patient will be started on IV antibiotics will be started on Zosyn there is a history of allergy to third generation cephalosporin but it looks like it was just a mild rash we will continue Zosyn and add vancomycin at this time blood cultures have been sent also urine cultures. - Diagnosis (1) Sepsis (2) Knee pain, right (3) Acute UTI (4) HTN (hypertension) Inpatient Certification: I certify that the inpatient services were ordered in accordance with Medicare regulations governing the order. This includes certification that hospital inpatient services are reasonable and necessary and in the case of services not specified as inpatient-only under 42 CFR 419.22(n), that they are appropriately provided as inpatient services in accordance to with the 2-midnight benchmark under 43 CFR 412.3(e) Estimated Total Length of Stay (Days): 3 Plans for Post Hospital Care: Not yet determined Review of Systems All other systems reviewed negative except as stated in HPI PMFSH - History History Provided By: Patient, Medical Record, Accounting Consultant / EMT - Medical History Medical History: Medical History (Last Reviewed 09/08/18 @ 21:53 by Hayes Sena MD) Chronic GERD Hypercholesteremia Hypertension - Surgical History Surgical History: Surgical History (Last Reviewed 09/08/18 @ 21:53 by Hayes Sena MD) History of cataract surgery History of tonsillectomy History of total knee arthroplasty - Tobacco History Second Hand Smoke Exposure: No Tobacco Use In Past 30 Days: No Smoking Status: Never smoker Tobacco Type: Cigarettes - Alcohol History How Often Do You Have a Drink Containing Alcohol: Never - Substance Use History Substance History: No History of Abuse - Travel History Recent Travel in the [place] Within the Last 8 Weeks: No Recent Travel Out of the Country Within the Last 8 Weeks: No - Immunization History Tetanus Immunization: Unsure Medications and Allergies Active Medications: Active Medications Acetaminophen (Tylenol) 650 mg PO Q4H PRN PRN Reason: Temp > 100.4 Clonidine HCl (Catapres) 0.1 mg PO BID [facility] Enoxaparin Sodium (Lovenox Inj) 30 mg SQ Q24H [facility] Fluticasone Propionate (Flonase Nasal [place]) 1 spray EACH NARE DAILY [facility] Vancomycin HCl 1,000 mg/ (Sodium Chloride) 250 mls @ 250 mls/hr IV.SIG VENEER STOCK LAYER [facility] Last Infusion: 09/08/18 21:36 Dose: Infused Potassium Chloride 10 meq/ (Sodium Chloride) 1,005 mls @ 75 mls/hr IV.CONT .[id number] [facility] Piperacillin/Tazobactam/Dextrose (Zosyn 3.375 Gm Premix) 50 mls @ 100 mls/hr IV.SIG Q8H [facility] Pharmacy Profile Note (Vancomycin Consult Pharmacy) 0 mls @ 0 mls/hr OTHER UNSCH [facility] Losartan Potassium (Cozaar) 50 mg PO DAILY [facility] Montelukast Sodium (Singulair) 10 mg PO DAILY [facility] Non-Formulary Medication (Lovastatin [Lovastatin]) 20 mg PO DAILY [facility] Ondansetron HCl (Zofran Inj) 4 mg IV.PUSH Q6H PRN PRN Reason: NAUSEA OR VOMITING Pantoprazole Sodium (Protonix) 20 mg PO BID [facility] Senna/Docusate Sodium (Ale-Colace) 1 tab PO BID [facility] Sodium Chloride (Ns Flush) 2 ml IV.FLUSH BID [facility] Sodium Chloride (Ns Flush) 2 ml IV.FLUSH PRN PRN PRN Reason: FLUSH AFTER USING IV ACCESS Triamterene/HCTZ (Dyazide 37.5/25 Mg) 1 cap PO DAILY [facility] Verapamil HCl (Isoptin Sr) 240 mg PO DAILY [facility] Allergies Allergy/AdvReac Type Severity Reaction Status Date / Time cefuroxime Allergy Intermediate Rash Verified 09/08/18 17:23 aspirin AdvReac Intermediate GI Verified 09/08/18 17:23 codeine AdvReac Intermediate HYPER Verified 09/08/18 17:23 morphine AdvReac Unknown states Verified 09/08/18 17:23 causes confusion Home Medications Medication Instructions Recorded Confirmed Type clonidine HCl 0.1 mg PO BID 05/02/18 09/08/18 History fluticasone 1 spray INTRANASAL DAILY 05/02/18 09/08/18 History losartan 50 mg PO DAILY 05/02/18 09/08/18 History lovastatin 20 mg PO DAILY 05/02/18 09/08/18 History montelukast 10 mg PO DAILY 05/02/18 09/08/18 History omeprazole 20 mg PO BID 05/02/18 09/08/18 History triamterene-hydrochlorothiazid 1 cap PO DAILY 05/02/18 09/08/18 History verapamil 240 mg PO DAILY 05/02/18 09/08/18 History Exam Vital signs: Vital Signs 09/08/18 17:26 09/08/18 17:30 09/08/18 18:03 Temperature 99.9 F H Pulse Rate 92 H Respiratory Rate 32 H Blood Pressure 195/70 H Pulse Oximetry 91 L 97 96 09/08/18 18:23 09/08/18 20:19 Temperature 98.8 F Pulse Rate 96 H 90 Respiratory Rate 26 H 20 Blood Pressure 179/74 H 153/60 H Pulse Oximetry 97 Intake & Output 09/08/18 09/08/18 09/09/18 06:59 18:59 06:59 Intake Total 1350 / 1350 Balance 1350 / 1350 Weight 54.431 kg Intake: IV 1350 / 1350 Zosyn 4.5 GM Premix 4.5 gm In 100 / 100 100 ml @ 200 mls/hr IV.SIG ONCE ONE Rx#:[id number] NS Inj 1,000 ML @ 1000 mls/hr 1000 / 1000 IV.SIG BOLUS [facility] Rx#:[id number] Vancomycin Inj 1,000 MG In NS 250 / 250 Inj 250 ML @ 250 mls/hr IV.SIG VENEER STOCK LAYER [facility] Rx#:[id number] Narrative: GENERAL: SKIN: Warm and dry. HEAD: Normocephalic. EYES: No scleral icterus. No injection or drainage. NECK: Supple, trachea midline. No JVD or lymphadenopathy. CARDIOVASCULAR: Regular rate and rhythm without murmurs, gallops, or rubs. RESPIRATORY: Breath sounds equal bilaterally. No accessory muscle use. GASTROINTESTINAL: Abdomen soft, non-tender, nondistended. MUSCULOSKELETAL: right knee swelling and warm to touch some erythema BACK: Nontender without obvious deformity. No CVA tenderness. Results - Labs CBC & Chem 7: 09/08/18 17:55 09/08/18 17:55 Labs: Laboratory Results - last 24 hr 09/08/18 09/08/18 09/08/18 17:55 17:55 17:55 CBC w Diff Auto diff final WBC 26.0 H RBC 4.71 Hgb 11.9 Hct 35.9 MCV 76.2 L MCH 25.2 L MCHC 33.0 RDW 19.0 H Plt Count 187 MPV 9.6 Neut % (Auto) 87.4 H Lymph % (Auto) 6.4 L [place] % (Auto) 5.9 Eos % (Auto) 0.1 Baso % (Auto) 0.2 Neut # (Auto) 22.7 H Lymph # (Auto) 1.7 [place] # (Auto) 1.5 H Eos # (Auto) 0.0 Baso # (Auto) 0.1 WBC Differential . Differential Comment . Sodium 138 Potassium 3.3 L Chloride 103 Carbon Dioxide 26.0 Anion Gap 9 BUN 17 Creatinine 1.10 H Estimated GFR 48 L Random Glucose 118 H Lactic Acid 1.4 Calcium 9.8 Magnesium 1.7 Total Bilirubin 0.7 AST 14 L ALT 15 Alkaline Phosphatase 88 Total Protein 8.3 H Albumin 3.7 Urine Color Urine Clarity Urine pH Ur Specific [place] Urine Protein Urine Glucose (UA) Urine Ketones Urine Occult Blood Urine Nitrate Urine Bilirubin Urine Urobilinogen Ur Leukocyte Esterase Urine RBC Urine WBC Urine WBC Clumps Ur Squamous Epith Cells Urine Bacteria Micro UA Comment Ur Microscopic Review Urine Culture Comments 09/08/18 18:10 CBC w Diff WBC RBC Hgb Hct MCV MCH MCHC RDW Plt Count MPV Neut % (Auto) Lymph % (Auto) [place] % (Auto) Eos % (Auto) Baso % (Auto) Neut # (Auto) Lymph # (Auto) [place] # (Auto) Eos # (Auto) Baso # (Auto) WBC Differential Differential Comment Sodium Potassium Chloride Carbon Dioxide Anion Gap BUN Creatinine Estimated GFR Random Glucose Lactic Acid Calcium Magnesium Total Bilirubin AST ALT Alkaline Phosphatase Total Protein Albumin Urine Color Yellow Urine Clarity Cloudy H Urine pH 6.0 Ur Specific [place] 1.025 Urine Protein 300 or greater H Urine Glucose (UA) Negative Urine Ketones Negative Urine Occult Blood Small H Urine Nitrate Positive H Urine Bilirubin Negative Urine Urobilinogen 0.2 Ur Leukocyte Esterase Negative Urine RBC 0-3 Urine WBC 21-50 H Urine WBC Clumps Few H Ur Squamous Epith Cells 0-5 Urine Bacteria Many H Micro UA Comment Culture indicated Ur Microscopic Review Microscopic reviewed Urine Culture Comments Culture indicated - Imaging Impressions Chest X-Ray 09/08/18 18:03 CONCLUSION: 1. No acute abnormality. Knee X-Ray 09/08/18 18:03 CONCLUSION: 1. Hardware within the distal femur and proximal tibia status post revision of right knee arthroplasty. 2. No acute fracture or dislocation. Venous Doppler Study 09/08/18 18:08 CONCLUSION: 1. The study is negative for lower extremity deep venous thrombosis. 2. Right inguinal lymphadenopathy which is nonspecific. Caprini VTE Risk Assessment Caprini VTE Risk Assessment: Moderate/High Risk (score >= 2) Caprini Risk Assessment Model: Point Value = 1 Point Value = 2 Point Value = 3 Point Value = 5 Age 41-60 Minor surgery BMI > 25 kg/m2 Swollen legs Varicose veins or History of unexplained or recurrent spontaneous Oral contraceptives or hormone replacement Sepsis (< 1 month) Serious lung disease, including pneumonia (< 1 month) Abnormal pulmonary function Acute myocardial infarction Congestive heart failure (< 1 month) History of inflammatory bowel disease Medical patient at bed rest Age 61-74 Arthroscopic surgery Major open surgery (> 45 min) Laparoscopic surgery (> 45 min) Malignancy Confined to bed (> 72 hours) Immobilizing plaster cast Central venous access Age >= 75 History of VTE Family history of VTE Factor V Leiden Prothrombin [id number] Lupus anticoagulant Anticardiolipin antibodies Elevated serum homocysteine Heparin-induced thrombocytopenia Other congenital or acquired thrombophilia Stroke (< 1 month) Elective arthroplasty Hip, pelvis, or leg fracture Acute spinal cord injury (< 1 month) Prophylaxis Regimen: Total Risk Factor Score Risk Level Prophylaxis Regimen 0-1 Low Early ambulation 2 Moderate Order ONE of the following: *Sequential Compression Device (SCD) *Heparin 5000 units SQ BID 3-4 Higher Order ONE of the following medications: *Heparin 5000 units SQ TID *Enoxaparin/Lovenox 40 mg SQ daily (WT < 150 kg, CrCl > 30 mL/min) *Enoxaparin/Lovenox 30 mg SQ daily (WT < 150 kg, CrCl > 10-29 mL/min) *Enoxaparin/Lovenox 30 mg SQ BID (WT < 150 kg, CrCl > 30 mL/min) AND/OR *Sequential Compression Device (SCD) 5 or more Highest Order ONE of the following medications: *Heparin 5000 units SQ TID (Preferred with Epidurals) *Enoxaparin/Lovenox 40 mg SQ daily (WT < 150 kg, CrCl > 30 mL/min) *Enoxaparin/Lovenox 30 mg SQ daily (WT < 150 kg, CrCl > 10-29 mL/min) *Enoxaparin/Lovenox 30 mg SQ BID (WT < 150 kg, CrCl > 30 mL/min) AND *Sequential Compression Device (SCD) Assessment and Plan - Assessment (1) Sepsis Code(s): A41.9 - Sepsis, unspecified organism Status: Acute Plan: Sepsis criteria based on clinical presentation elevated WBC count will be started on IV Zosyn as well Vancomycin , blood cultures have been drawn. Possible etiologies could be the right knee versus urine (2) Knee pain, right Code(s): M25.561 - Pain in right knee Status: Acute Plan: We will consult orthopedics antibiotics as above (3) Acute UTI Code(s): N39.0 - Urinary tract infection, site not specified Status: Acute Plan: Urine culture has been sent antibiotics as above (4) HTN (hypertension) Code(s): I10 - Essential (primary) hypertension Status: Chronic Plan: Continue home medicines - Plan Further plan as case develops Code Status: Full Discussed Condition With: Patient (1) Sepsis Qualifiers: Sepsis type: sepsis due to unspecified organism Qualified Code(s): A41.9 - Sepsis, unspecified organism (2) Knee pain, right Qualifiers: Chronicity: acute Qualified Code(s): M25.561 - Pain in right knee
[2018-09-08] MEDS: Enoxaparin Inj 30 MG/0.3 ML Syringe SQ SCH (22:32)
[2018-09-08] MEDS: Potassium Chloride Inj 10 MEQ in Sodium Chloride 0.45 % Inj 1,000 ML IV.CONT SCH (22:33)
[2018-09-09] MEDS: Piperacil/Tazo 3.375 GM Premix 50 ML IV.SIG SCH ×3 (04:32→22:13)
[2018-09-09 08:04] LABS: Baso % (Auto) 0.2 % (0.0-2.0); Hematocrit 30.4 % (35.0-46.0); Lymph # (Auto) 1.8 th/mm3 (1.0-4.8); Lymph % (Auto) 11.2 % (9.0-44.0); Mean Corpuscular HGB Conc 32.8 % (32.0-36.0); Mean Corpuscular Hemoglobin 25.5 pg (27.0-34.0); Mean Corpuscular Volume 77.7 fL (80.0-100.0); Mono # (Auto) 0.9 th/mm3 (0.0-0.9); Mono % (Auto) 5.5 % (0.0-8.0); Neut # (Auto) 13.2 th/mm3 (1.8-7.7); Neut % (Auto) 83.1 % (16.0-70.0); Platelet Count 138 th/mm3 (150-450); Red Blood Count 3.91 mil/mm3 (4.00-5.30); Red Cell Distribution Width 20.7 % (11.6-17.2); White Blood Count 15.9 th/mm3 (4.0-11.0)
[2018-09-09 08:30] LABS: Calcium 8.4 mg/dL (8.5-10.1); Carbon Dioxide 26.2 meq/L (21.0-32.0); Potassium 3.4 meq/L (3.5-5.1)
[2018-09-09] MEDS: Verapamil SR 240 MG Tablet PO SCH (09:05)
[2018-09-09] MEDS: Senna/Docusate Sodium 8.6/50 MG Tablet PO SCH ×2 (09:05→22:09)
[2018-09-09] MEDS: Montelukast 10 MG Tablet PO SCH (09:05)
[2018-09-09] MEDS: Pantoprazole Sodium 20 MG DR Tablet PO SCH ×2 (09:05→22:09)
[2018-09-09] MEDS: Potassium Chloride Inj 10 MEQ in Sodium Chloride 0.45 % Inj 1,000 ML IV.CONT SCH (11:48)
--- NOTE | 2018-09-09 11:57 | P.PNIM ---
Subjective Interval history: Pt without any specific complaints at the time of exam She denies any increased pain in the right knee. Pt was reportedly ambulating without difficulty prior to yesterday when she became Physical Exam Vital signs: Last Vital Signs Temp 99.3 F 09/09/18 07:38 Pulse 85 09/09/18 07:38 Resp 18 09/09/18 07:38 BP 185/72 H 09/09/18 07:38 Pulse Ox 98 09/09/18 07:38 Results Labs CBC & Chem 7: 09/11/18 06:08 09/11/18 06:08 Imaging Chest X-Ray 09/08/18 18:03 CONCLUSION: 1. No acute abnormality. Knee X-Ray 09/08/18 18:03 CONCLUSION: 1. Hardware within the distal femur and proximal tibia status post revision of right knee arthroplasty. 2. No acute fracture or dislocation. Venous Doppler Study 09/08/18 18:08 CONCLUSION: 1. The study is negative for lower extremity deep venous thrombosis. 2. Right inguinal lymphadenopathy which is nonspecific. Assessment and Plan Assessment (1) Sepsis: Code(s): A41.9 - Sepsis, unspecified organism Status: Acute (2) Knee pain, right: Code(s): M25.561 - Pain in right knee Status: Acute (3) Acute UTI: Code(s): N39.0 - Urinary tract infection, site not specified Status: Acute Plan Bacteremia Septic arthritis, hx of MSSA UTI - Pt is a pleasant 83 y/o female with HTN, osteoporosis, emphysema and hx of septic arthritis. 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 Earlier this year she was admitted for septic arthritis in the right knee in 01/2018 and was found to have an MSSA infection. She underwent I&D of the right TKA with removal of prosthesis and placement of abx spacer with Dr. Toney 02/02/18. Pt was discharged on IV Vancomycin which was completed on 03/16/18. Pt was readmitted to [facility] on 05/02/18 and underwent right knee revision total knee arthroplasty, femoral and tibial components with Dr. Toney. Patient states that from April until June 2018 she was reportedly on antibiotics. - Pt presented to the ED on 09/08/18 with complaints of right knee/leg swelling/ pain and notes that the area is warm to touch. Pt also complained of generalized weakness. - Knee X-Ray (09/08/18): 1. Hardware within the distal femur and proximal tibia status post revision of right knee arthroplasty. 2. No acute fracture or dislocation. - Venous Doppler Study (09/08/18): 1. The study is negative for lower extremity deep venous thrombosis. 2. Right inguinal lymphadenopathy which is nonspecific. - WBC count at admission was greater than 26,000 with a urine suggestive of a UTI. - Blood cultures (09/08/18) with 3/4 cultures positive for gram positive cocci - Urine culture is growing gram negative rods - Pt was started on Vancomycin and Zosyn at admission. - Orthopedic surgery has been consulted. - Obtain MRI right knee - Consult ID in AM - Cont. IVF - Diet as tolerated - Supportive care HTN - Home meds resumed - Vasotec PRN - Monitor GERD - PPI Hyperlipidemia - Cont. home med DVT prophylaxis with SCDs Attending Attestation The exam, history, and the medical decision-making described in the above note were completed with the assistance of the mid-level provider. I reviewed and agree with the findings presented. I attest that I had a [id number] encounter with the patient on the same day, and personally performed and documented my assessment and findings in the medical record. Patient examined. Assessment and plan formulated with Abby Sloan PA-C. I agree with the above. Progress Note: Quality VTE Deep Vein Thrombosis/Pulmonary Embolism Present on Admission: No _ (1) Sepsis Qualifiers: Sepsis type: sepsis due to unspecified organism Qualified Code(s): A41.9 - Sepsis, unspecified organism (2) Knee pain, right Qualifiers: Chronicity: acute Qualified Code(s): M25.561 - Pain in right knee
--- NOTE | 2018-09-09 13:05 | ECG ---
Date Performed: 09/08/2018 Time Performed: 19:19:09 PTAGE: 83 years EKG: Sinus rhythm WITH OCCASIONAL SUPRAVENTRICULAR PREMATURE COMPLEXES LEFT VENTRICULAR HYPERTROPHY AND ST-T CHANGE AB NORMAL ECG Since the PREVIOUS TRACING , no significant change noted PREVIOUS TRACIN02/05/2018 22.26 DOCTOR: Everette Austin Interpretating Date/Time 09/09/2018 13:00:48
--- NOTE | 2018-09-09 16:18 | P.CONOP ---
[facility] Orthopedics Consult Note - [facility] Consult date: 09/09/18 Requesting physician: Hayes Sena Chief complaint: Sepsis,UTI,Out septic right knee,leukocytosis Narrative: 83 year old female with history of multiple right knee surgeries presented to the ED yesterday with complaints of right knee pain and warmth. She had a right total knee done by Dr. Toney 4 years ago and subsequently developed infection. She had resection of the implant and antbiotic spacer placed with IV antibiotics given prior to her last surgery where a new joint was implanted in April. Labs show an elevated white count, as well as UTI. Blood cultures are positive for GPC. She reports this morning that her knee pain has significantly improved after being on the antibiotics overnight. She denies swelling. She has no other complaints. Review of Systems All other systems reviewed negative except as [facility] - History History Provided By: Patient - Medical History Medical History: Medical History (Last Reviewed 09/09/18 @ 16:13 by Nahed Ace MD) Chronic GERD Hypercholesteremia Hypertension - Surgical History Surgical History: Surgical History (Last Reviewed 09/09/18 @ 16:13 by Nahed Ace MD) History of cataract surgery History of tonsillectomy History of total knee arthroplasty - Social History I have reviewed the patient's Social History: Yes - Tobacco History Second Hand Smoke Exposure: No Tobacco Use In Past 30 Days: No Smoking Status: Never smoker Tobacco Type: Cigarettes - Alcohol History How Often Do You Have a Drink Containing Alcohol: Never - Substance Use History Substance History: No History of Abuse - Travel History Recent Travel in the [place] Within the Last 8 Weeks: No Recent Travel Out of the Country Within the Last 8 Weeks: No - Immunization History Tetanus Immunization: <5 Years Hx Influenza Vaccine This Season: Yes Medications and Allergies Active Medications: Active Medications Acetaminophen (Tylenol) 650 mg PO Q4H PRN PRN Reason: Temp > 100.4 Clonidine HCl (Catapres) 0.1 mg PO BID [facility] Last Admin: 09/09/18 09:05 Dose: 0.1 mg Enoxaparin Sodium (Lovenox Inj) 30 mg SQ Q24H [facility] Last Admin: 09/08/18 22:32 Dose: 30 mg Fluticasone Propionate (Flonase Nasal [place]) 1 spray EACH NARE DAILY [facility] Last Admin: 09/09/18 09:03 Dose: 1 spray Vancomycin HCl 1,000 mg/ (Sodium Chloride) 250 mls @ 250 mls/hr IV.SIG CLINICAL EVALUATOR [facility] Last Infusion: 09/08/18 21:36 Dose: Infused Potassium Chloride 10 meq/ (Sodium Chloride) 1,005 mls @ 75 mls/hr IV.CONT .[id number] [facility] Last Infusion: 09/09/18 15:11 Dose: 0 mls/hr Piperacillin/Tazobactam/Dextrose (Zosyn 3.375 Gm Premix) 50 mls @ 100 mls/hr IV.SIG Q8H [facility] Last Infusion: 09/09/18 13:21 Dose: Infused Pharmacy Profile Note (Vancomycin Consult Pharmacy) 0 mls @ 0 mls/hr OTHER UNSCH [facility] Vancomycin HCl 850 mg/ Sodium (Chloride) 250 mls @ 250 mls/hr IV.SIG Q24H [facility] Losartan Potassium (Cozaar) 50 mg PO DAILY [facility] Last Admin: 09/09/18 09:05 Dose: 50 mg Miscellaneous Information ([facility] [place]dered Lab Info) 0 each OTHER ONCE ONE Stop: 09/11/18 19:46 Montelukast Sodium (Singulair) 10 mg PO DAILY [facility] Last Admin: 09/09/18 09:05 Dose: 10 mg Ondansetron HCl (Zofran Inj) 4 mg IV.PUSH Q6H PRN PRN Reason: NAUSEA OR VOMITING Pantoprazole Sodium (Protonix) 20 mg PO BID [facility] Last Admin: 09/09/18 09:05 Dose: 20 mg Pravastatin Sodium (Pravachol) 20 mg PO DAILY [facility] Last Admin: 09/09/18 09:05 Dose: 20 mg Senna/Docusate Sodium (Ale-Colace) 1 tab PO BID [facility] Last Admin: 09/09/18 09:05 Dose: 1 tab Sodium Chloride (Ns Flush) 2 ml IV.FLUSH BID [facility] Last Admin: 09/09/18 09:07 Dose: Not Given Sodium Chloride (Ns Flush) 2 ml IV.FLUSH PRN PRN PRN Reason: FLUSH AFTER USING IV ACCESS Triamterene/HCTZ (Dyazide 37.5/25 Mg) 1 cap PO DAILY [facility] Last Admin: 09/09/18 09:05 Dose: 1 cap Verapamil HCl (Isoptin Sr) 240 mg PO DAILY [facility] Last Admin: 09/09/18 09:05 Dose: 240 mg Allergies Allergy/AdvReac Type Severity Reaction Status Date / Time cefuroxime Allergy Intermediate Rash Verified 09/08/18 17:23 aspirin AdvReac Intermediate GI Verified 09/08/18 17:23 codeine AdvReac Intermediate HYPER Verified 09/08/18 17:23 morphine AdvReac Unknown states Verified 09/08/18 17:23 causes confusion Home Medications Medication Instructions Recorded Confirmed Type clonidine HCl 0.1 mg PO BID 05/02/18 09/08/18 History fluticasone 1 spray INTRANASAL DAILY 05/02/18 09/08/18 History losartan 50 mg PO DAILY 05/02/18 09/08/18 History lovastatin 20 mg PO DAILY 05/02/18 09/08/18 History montelukast 10 mg PO DAILY 05/02/18 09/08/18 History omeprazole 20 mg PO BID 05/02/18 09/08/18 History triamterene-hydrochlorothiazid 1 cap PO DAILY 05/02/18 09/08/18 History verapamil 240 mg PO DAILY 05/02/18 09/08/18 History Exam Vital signs: Vital Signs 09/08/18 17:26 09/08/18 17:30 09/08/18 18:03 Temperature 99.9 F H Pulse Rate 92 H Respiratory Rate 32 H Blood Pressure 195/70 H Pulse Oximetry 91 L 97 96 09/08/18 18:23 09/08/18 20:19 09/08/18 22:54 Temperature 98.8 F Pulse Rate 96 H 90 Respiratory Rate 26 H 20 Blood Pressure 179/74 H 153/60 H Pulse Oximetry 97 97 09/09/18 00:00 09/09/18 04:00 09/09/18 07:10 Temperature 98.1 F 98.8 F Pulse Rate 86 85 84 Respiratory Rate 18 18 Blood Pressure 157/70 H 156/77 H Pulse Oximetry 97 100 09/09/18 07:38 09/09/18 12:00 Temperature 99.3 F Pulse Rate 85 78 Respiratory Rate 18 18 Blood Pressure 185/72 H 185/78 H Pulse Oximetry 98 93 L Intake & Output 09/08/18 09/09/18 09/09/18 18:59 06:59 18:59 Intake Total 1400 / 1400 997 / 997 Balance 1400 / 1400 997 / 997 Weight 54.431 kg 54.431 kg Intake: IV 1400 / 1400 997 / 997 KCl Inj 10 MEQ In 1/2 Normal 947 / 947 Saline Inj 1,000 ML @ 75 mls/hr IV.CONT .[id number] JERI Rx#: [id number] Zosyn 3.375 GM Premix 50 ML @ 50 / 50 50 / 50 100 mls/hr IV.SIG Q8H JERI Rx#: [id number] Zosyn 4.5 GM Premix 4.5 gm In 100 / 100 100 ml @ 200 mls/hr IV.SIG ONCE ONE Rx#:[id number] NS Inj 1,000 ML @ 1000 mls/hr 1000 / 1000 IV.SIG BOLUS JERI Rx#:[id number] Vancomycin Inj 1,000 MG In NS 250 / 250 Inj 250 ML @ 250 mls/hr IV.SIG CLINICAL EVALUATOR JERI Rx#:[id number] Other: # Voids 3 3 Date of Last Bowel Movement 09/08/18 09/09/18 # Bowel Movements 2 Weight On Admission 54.431 kg - Constitutional no acute distress - Routine HEENT Exam Head: Present: normocephalic Eye: Present: EOMI - Routine Neck Exam Present: supple - Routine Respiratory Exam Absent: accessory muscle use - Routine Cardiovascular Exam Present: RRR - Routine Extremities Exam Comments: Right lower extremity with well healed surgical scar anteriorly. No erythema present. There is mild swelling. She is nontender and can range the knee 0-90 without pain. No appreciable warmth compared to the other knee. She is neurovascularly intact distally. Results - Labs Result Diagrams: 09/09/18 07:22 09/09/18 07:27 Labs: Laboratory Results - last 24 hr 09/08/18 09/08/18 09/08/18 17:55 17:55 17:55 CBC w Diff Auto diff final WBC 26.0 H RBC 4.71 Hgb 11.9 Hct 35.9 MCV 76.2 L MCH 25.2 L MCHC 33.0 RDW 19.0 H Plt Count 187 MPV 9.6 Neut % (Auto) 87.4 H Lymph % (Auto) 6.4 L [place] % (Auto) 5.9 Eos % (Auto) 0.1 Baso % (Auto) 0.2 Neut # (Auto) 22.7 H Lymph # (Auto) 1.7 [place] # (Auto) 1.5 H Eos # (Auto) 0.0 Baso # (Auto) 0.1 WBC Differential . Differential Comment . Sodium 138 Potassium 3.3 L Chloride 103 Carbon Dioxide 26.0 Anion Gap 9 BUN 17 Creatinine 1.10 H Estimated GFR 48 L Random Glucose 118 H Lactic Acid 1.4 Calcium 9.8 Magnesium 1.7 Total Bilirubin 0.7 AST 14 L ALT 15 Alkaline Phosphatase 88 Total Protein 8.3 H Albumin 3.7 Urine Color Urine Clarity Urine pH Ur Specific [place] Urine Protein Urine Glucose (UA) Urine Ketones Urine Occult Blood Urine Nitrate Urine Bilirubin Urine Urobilinogen Ur Leukocyte Esterase Urine RBC Urine WBC Urine WBC Clumps Ur Squamous Epith Cells Urine Bacteria Micro UA Comment Ur Microscopic Review Urine Culture Comments 09/08/18 09/09/18 09/09/18 18:10 07:22 07:27 CBC w Diff WBC 15.9 H RBC 3.91 L Hgb 10.0 L Hct 30.4 L MCV 77.7 L MCH 25.5 L MCHC 32.8 RDW 20.7 H Plt Count 138 L MPV 9.0 Neut % (Auto) 83.1 H Lymph % (Auto) 11.2 [place] % (Auto) 5.5 Eos % (Auto) 0.0 Baso % (Auto) 0.2 Neut # (Auto) 13.2 H Lymph # (Auto) 1.8 [place] # (Auto) 0.9 Eos # (Auto) 0.0 Baso # (Auto) 0.0 WBC Differential . Differential Comment Auto diff final Sodium 139 Potassium 3.4 L Chloride 106 Carbon Dioxide 26.2 Anion Gap 7 BUN 18 Creatinine 0.99 Estimated GFR 54 L Random Glucose 86 Lactic Acid Calcium 8.4 L D Magnesium Total Bilirubin AST ALT Alkaline Phosphatase Total Protein Albumin Urine Color Yellow Urine Clarity Cloudy H Urine pH 6.0 Ur Specific [place] 1.025 Urine Protein 300 or greater H Urine Glucose (UA) Negative Urine Ketones Negative Urine Occult Blood Small H Urine Nitrate Positive H Urine Bilirubin Negative Urine Urobilinogen 0.2 Ur Leukocyte Esterase Negative Urine RBC 0-3 Urine WBC 21-50 H Urine WBC Clumps Few H Ur Squamous Epith Cells 0-5 Urine Bacteria Many H Micro UA Comment Culture indicated Ur Microscopic Review Microscopic reviewed Urine Culture Comments Culture indicated - Diagnostic results Imaging: Impressions Chest X-Ray 09/08/18 18:03 CONCLUSION: 1. No acute abnormality. Knee X-Ray 09/08/18 18:03 CONCLUSION: 1. Hardware within the distal femur and proximal tibia status post revision of right knee arthroplasty. 2. No acute fracture or dislocation. Venous Doppler Study 09/08/18 18:08 CONCLUSION: 1. The study is negative for lower extremity deep venous thrombosis. 2. Right inguinal lymphadenopathy which is nonspecific. Assessment and Plan - Assessment and Plan 83 year old female status post right TKA and revisions for infection, presenting with right knee pain and positive blood cultures concerning for reinfection. Recommend continuation of IV antibiotics. Will discuss with Dr. Toney.
[2018-09-09] MEDS: Acetaminophen 325 MG Tablet PO PRN ×2 (16:31→22:09)
[2018-09-09] MEDS: Vancomycin Inj 850 MG in Sodium Chlor 0.9% Inj 250 ML IV.SIG SCH (22:00)
[2018-09-09] MEDS: Enoxaparin Inj 30 MG/0.3 ML Syringe SQ SCH (22:08)
[2018-09-10] MEDS: Piperacil/Tazo 3.375 GM Premix 50 ML IV.SIG SCH ×3 (04:30→22:34)
[2018-09-10] MEDS: Potassium Chloride Inj 10 MEQ in Sodium Chloride 0.45 % Inj 1,000 ML IV.CONT SCH ×2 (06:59→20:41)
[2018-09-10 08:02] LABS: Baso % (Auto) 0.2 % (0.0-2.0); Eos % (Auto) 0.1 % (0.0-4.0); Hematocrit 29.5 % (35.0-46.0); Hemoglobin 9.5 gm/dL (11.6-15.3); Lymph # (Auto) 1.7 th/mm3 (1.0-4.8); Lymph % (Auto) 10.5 % (9.0-44.0); Mean Corpuscular HGB Conc 32.3 % (32.0-36.0); Mean Corpuscular Hemoglobin 25.3 pg (27.0-34.0); Mean Corpuscular Volume 78.2 fL (80.0-100.0); Mean Platelet Volume 9.2 fL (7.0-11.0); Mono % (Auto) 6.5 % (0.0-8.0); Neut # (Auto) 13.3 th/mm3 (1.8-7.7); Neut % (Auto) 82.7 % (16.0-70.0); Platelet Count 125 th/mm3 (150-450); Red Blood Count 3.77 mil/mm3 (4.00-5.30); Red Cell Distribution Width 20.4 % (11.6-17.2)
[2018-09-10 08:19] LABS: Carbon Dioxide 25.5 meq/L (21.0-32.0); Potassium 3.3 meq/L (3.5-5.1)
[2018-09-10] MEDS: Montelukast 10 MG Tablet PO SCH (10:30)
[2018-09-10] MEDS: Pantoprazole Sodium 20 MG DR Tablet PO SCH ×2 (10:30→20:39)
[2018-09-10] MEDS: Verapamil SR 240 MG Tablet PO SCH (10:30)
[2018-09-10] MEDS: Senna/Docusate Sodium 8.6/50 MG Tablet PO SCH ×2 (10:31→20:41)
--- NOTE | 2018-09-10 13:53 | P.PNIM ---
Subjective Interval history: No new complaints Pain is currently controlled. Physical Exam Vital signs: Last Vital Signs Temp 99.0 F 09/10/18 11:54 Pulse 110 H 09/10/18 11:54 Resp 20 09/10/18 11:54 BP 181/89 H 09/10/18 12:42 Pulse Ox 94 L 09/10/18 11:54 Narrative: General: NAD, AAOx3 Chest: CTA Cardiac: Regular Abd: +BS, soft ND/NT Ext: Right knee is swollen and warm. No noted erythema. WHSS. Results Labs CBC & Chem 7: 09/11/18 06:08 09/11/18 06:08 Imaging Chest X-Ray 09/08/18 18:03 CONCLUSION: 1. No acute abnormality. Knee X-Ray 09/08/18 18:03 CONCLUSION: 1. Hardware within the distal femur and proximal tibia status post revision of right knee arthroplasty. 2. No acute fracture or dislocation. Venous Doppler Study 09/08/18 18:08 CONCLUSION: 1. The study is negative for lower extremity deep venous thrombosis. 2. Right inguinal lymphadenopathy which is nonspecific. Assessment and Plan Assessment (1) Sepsis: Code(s): A41.9 - Sepsis, unspecified organism Status: Acute (2) Knee pain, right: Code(s): M25.561 - Pain in right knee Status: Acute (3) Acute UTI: Code(s): N39.0 - Urinary tract infection, site not specified Status: Acute (4) HTN (hypertension): Code(s): I10 - Essential (primary) hypertension Status: Chronic Plan Bacteremia Septic arthritis, hx of MSSA UTI - Pt is a pleasant 83 y/o female with HTN, osteoporosis, emphysema and hx of septic arthritis. 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 Earlier this year she was admitted for septic arthritis in the right knee in 01/2018 and was found to have an MSSA infection. She underwent I&D of the right TKA with removal of prosthesis and placement of abx spacer with Dr. Toney 02/02/18. Pt was discharged on IV Vancomycin which was completed on 03/16/18. Pt was readmitted to [facility] [place] on 05/02/18 and underwent right knee revision total knee arthroplasty, femoral and tibial components with Dr. Toney. Patient states that from April until June 2018 she was reportedly on antibiotics. - Pt presented to the ED on 09/08/18 with complaints of right knee/leg swelling/ pain and notes that the area is warm to touch. Pt also complained of generalized weakness. - Knee X-Ray (09/08/18): 1. Hardware within the distal femur and proximal tibia status post revision of right knee arthroplasty. 2. No acute fracture or dislocation. - Venous Doppler Study (09/08/18): 1. The study is negative for lower extremity deep venous thrombosis. 2. Right inguinal lymphadenopathy which is nonspecific. - WBC count at admission was greater than 26,000 with a urine suggestive of a UTI. - Blood cultures (09/08/18) with 4/4 cultures positive for gram positive cocci/ Group B strep - Urine culture with E. coli - Pt was started on Vancomycin and Zosyn at admission and these were continued - Orthopedic surgery is following. - Obtain CT right knee - Consult ID - Repeat labs in AM - Cont. IVF - Diet as tolerated - Supportive care HTN - Home meds resumed but BP is not well controlled, will increase her Clonidine to 0.2mg BID, cont. Losartan 50mg daily and Dyazide - Vasotec PRN - Monitor GERD - PPI Hyperlipidemia - Cont. home med DVT prophylaxis with SCDs Attending Attestation The exam, history, and the medical decision-making described in the above note were completed with the assistance of the mid-level provider. I reviewed and agree with the findings presented. I attest that I had a [id number] encounter with the patient on the same day, and personally performed and documented my assessment and findings in the medical record. Patient examined. Assessment and plan formulated with Abby Sloan PA-C. I agree with the above. Progress Note: Quality VTE Deep Vein Thrombosis/Pulmonary Embolism Present on Admission: No _ (1) Sepsis Qualifiers: Sepsis type: sepsis due to unspecified organism Qualified Code(s): A41.9 - Sepsis, unspecified organism (2) Knee pain, right Qualifiers: Chronicity: acute Qualified Code(s): M25.561 - Pain in right knee (3) HTN (hypertension) Qualifiers: Hypertension type:
--- NOTE | 2018-09-10 14:28 | P.CONID ---
History of Present Illness Service: Infectious Disease Consult date: 09/10/18 Requesting Physician: Jonathan Castillo Reason for Consult: Evaluation and MMent of Strep Bacteremia Primary Care Provider: Everette Garcia MD Chief Complaint: Pain and swelling to right knee for 1 day History of Present Illness: is an 83-year-old female with past medical history significant for total knee replacement in the past by Dr. Toney with subsequent infection on multiple occasions. Patient eventually required right knee hardware replacement with a spacer followed by revision of her right knee in April 2018. Patient reports that after her discharge in April she has not had any infection related problems in her right knee and has not been on any antibiotics since June. Of note she has grown methicillin sensitive staph aureus in the past. Patient now presents to the emergency department with generalized weakness, nonspecific. She denies any cardia pulmonary symptoms. She denies any GI symptoms such as nausea vomiting abdominal pain or any GI bleed. Patient does not remember if she has ever had a colonoscopy or EGD. While in the emergency room patient underwent an x-ray of the knee as well as an ultrasound which is essentially negative. WBC count was 20,000 with a urine suggestive of UTI Ancef therefore she was admitted for further evaluation. Patient is also been evaluated by Dr. Toney's group and patient informs me that he does not think that this is related to her knee. Patient denies any urinary complaints. Patient denies any GI complaints and denies any colonoscopy or EGD in the recent past. Patient has dentures and denies any problems. Patient denies any skin ulcerations or skin breaks suggestive of infection. Patient underwent workup for possible sepsis including blood cultures. UA is positive for E. coli. Blood cultures are positive for group G beta strep. Patient was empirically started on Zosyn and IV vancomycin. Infectious diseases consulted for evaluation and management of group G beta strep bacteremia. At the time of my evaluation patient is on a regular floor awake alert oriented x3. She denies any knee pain or any skin issues. She denies any diarrhea or GI bleeding. She denies any dental problems. Review of Systems All other systems reviewed negative except as stated in HPI PMFSH - History History Provided By: Patient - Medical History Medical History: Medical History (Last Reviewed 09/09/18 @ 16:13 by Nahed Ace MD) Chronic GERD Hypercholesteremia Hypertension - Surgical History Surgical History: Surgical History (Last Reviewed 09/09/18 @ 16:13 by Nahed Ace MD) History of cataract surgery History of tonsillectomy History of total knee arthroplasty - Tobacco History Second Hand Smoke Exposure: No Tobacco Use In Past 30 Days: No Smoking Status: Never smoker Tobacco Type: Cigarettes - Alcohol History How Often Do You Have a Drink Containing Alcohol: Never - Substance Use History Substance History: No History of Abuse - Travel History Recent Travel in the [place] Within the Last 8 Weeks: No Recent Travel Out of the Country Within the Last 8 Weeks: No - Immunization History Tetanus Immunization: <5 Years Hx Influenza Vaccine This Season: Yes Medications and Allergies Active Medications: Active Medications Acetaminophen (Tylenol) 650 mg PO Q4H PRN PRN Reason: Temp > 100.4 Last Admin: 09/09/18 22:09 Dose: 650 mg Clonidine HCl (Catapres) 0.1 mg PO BID [facility] Last Admin: 09/10/18 10:31 Dose: 0.1 mg Enalaprilat (Vasotec Inj) 1.25 mg IV.PUSH Q6H PRN PRN Reason: SBP 170 or greater Last Admin: 09/10/18 12:59 Dose: 1.25 mg Enoxaparin Sodium (Lovenox Inj) 30 mg SQ Q24H [facility] Last Admin: 09/09/18 22:08 Dose: 30 mg Fluticasone Propionate (Flonase Nasal [place]) 1 spray EACH NARE DAILY [facility] Last Admin: 09/10/18 10:29 Dose: Not Given Vancomycin HCl 1,000 mg/ (Sodium Chloride) 250 mls @ 250 mls/hr IV.SIG SEARCH ADVERTISING STRATEGIST [facility] Last Infusion: 09/08/18 21:36 Dose: Infused Potassium Chloride 10 meq/ (Sodium Chloride) 1,005 mls @ 75 mls/hr IV.CONT .[id number] [facility] Last Admin: 09/10/18 06:59 Dose: 75 mls/hr Piperacillin/Tazobactam/Dextrose (Zosyn 3.375 Gm Premix) 50 mls @ 100 mls/hr IV.SIG Q8H [facility] Last Infusion: 09/10/18 13:07 Dose: Infused Pharmacy Profile Note (Vancomycin Consult Pharmacy) 0 mls @ 0 mls/hr OTHER UNSCH [facility] Vancomycin HCl 850 mg/ Sodium (Chloride) 250 mls @ 250 mls/hr IV.SIG Q24H [facility] Last Infusion: 09/09/18 23:24 Dose: Infused Losartan Potassium (Cozaar) 50 mg PO DAILY [facility] Last Admin: 09/10/18 10:30 Dose: 50 mg Miscellaneous Information ([facility] Ordered Lab Info) 0 each OTHER ONCE ONE Stop: 09/11/18 19:46 Montelukast Sodium (Singulair) 10 mg PO DAILY [facility] Last Admin: 09/10/18 10:30 Dose: 10 mg Ondansetron HCl (Zofran Inj) 4 mg IV.PUSH Q6H PRN PRN Reason: NAUSEA OR VOMITING Pantoprazole Sodium (Protonix) 20 mg PO BID [facility] Last Admin: 09/10/18 10:30 Dose: 20 mg Pravastatin Sodium (Pravachol) 20 mg PO DAILY [facility] Last Admin: 09/10/18 10:31 Dose: 20 mg Senna/Docusate Sodium (Ale-Colace) 1 tab PO BID [facility] Last Admin: 09/10/18 10:31 Dose: 1 tab Sodium Chloride (Ns Flush) 2 ml IV.FLUSH BID [facility] Last Admin: 09/10/18 10:31 Dose: 2 ml Sodium Chloride (Ns Flush) 2 ml IV.FLUSH PRN PRN PRN Reason: FLUSH AFTER USING IV ACCESS Triamterene/HCTZ (Dyazide 37.5/25 Mg) 1 cap PO DAILY [facility] Last Admin: 09/10/18 10:30 Dose: 1 cap Verapamil HCl (Isoptin Sr) 240 mg PO DAILY [facility] Last Admin: 09/10/18 10:30 Dose: 240 mg Allergies Allergy/AdvReac Type Severity Reaction Status Date / Time cefuroxime Allergy Intermediate Rash Verified 09/08/18 17:23 aspirin AdvReac Intermediate GI Verified 09/08/18 17:23 codeine AdvReac Intermediate HYPER Verified 09/08/18 17:23 morphine AdvReac Unknown states Verified 09/08/18 17:23 causes confusion Home Medications Medication Instructions Recorded Confirmed Type clonidine HCl 0.1 mg PO BID 05/02/18 09/08/18 History fluticasone 1 spray INTRANASAL DAILY 05/02/18 09/08/18 History losartan 50 mg PO DAILY 05/02/18 09/08/18 History lovastatin 20 mg PO DAILY 05/02/18 09/08/18 History montelukast 10 mg PO DAILY 05/02/18 09/08/18 History omeprazole 20 mg PO BID 05/02/18 09/08/18 History triamterene-hydrochlorothiazid 1 cap PO DAILY 05/02/18 09/08/18 History verapamil 240 mg PO DAILY 05/02/18 09/08/18 History Exam Vital signs: Vital Signs 09/09/18 16:00 09/09/18 18:10 09/09/18 20:00 Temperature 100.3 F H 99.5 F 99.0 F Pulse Rate 100 H 77 73 Respiratory Rate 16 18 20 Blood Pressure 187/81 H 149/66 H 167/72 H Pulse Oximetry 93 L 93 L 94 L 09/10/18 00:00 09/10/18 04:00 09/10/18 08:00 Temperature 98.7 F 98.6 F 99.4 F Pulse Rate 63 70 110 H Respiratory Rate 20 20 20 Blood Pressure 150/69 H 183/73 H 173/72 H Pulse Oximetry 94 L 96 94 L 09/10/18 11:54 09/10/18 12:42 Temperature 99.0 F Pulse Rate 110 H Respiratory Rate 20 Blood Pressure 201/73 H 181/89 H Pulse Oximetry 94 L Intake & Output 09/09/18 09/10/18 09/10/18 18:59 06:59 18:59 Intake Total 997 / 997 1305 / 1305 100 / 100 Output Total 2 / 2 Balance 997 / 997 1303 / 1303 100 / 100 Weight 61.7 kg Intake: IV 997 / 997 1305 / 1305 100 / 100 KCl Inj 10 MEQ In 1/2 Normal 947 / 947 1005 / 1005 Saline Inj 1,000 ML @ 75 mls/hr IV.CONT .[id number] [facility] Rx#: [id number] Zosyn 3.375 GM Premix 50 ML @ 50 / 50 50 / 50 100 / 100 100 mls/hr IV.SIG Q8H [facility] Rx#: [id number] Vancomycin Inj 850 MG In NS Inj 250 / 250 250 ML @ 250 mls/hr IV.SIG Q24H [facility] Rx#:[id number] Output: Urine 2 / 2 Other: # Voids 3 # Urine Diapers 2 Date of Last Bowel Movement 09/09/18 # Bowel Movements 2 Narrative: GENERAL: Well-nourished well-developed, not in acute distress SKIN: Cool and dry, no generalized rash HEAD: Atraumatic. Normocephalic. No temporal or scalp tenderness. EYES: Pupils equal round and reactive. Scleral icterus. No injection or drainage. No petechia ENT: Nothing abnormal detected NECK: Trachea midline. Supple, nontender, no meningeal signs. CARDIOVASCULAR: HS audible. RESPIRATORY: Clear to auscultation bilaterally. GASTROINTESTINAL: Abdomen soft nontender. MUSCULOSKELETAL: Extremities without clubbing, cyanosis. Right knee surgical scar intact with no evidence of infection. Some swelling but no warmth or tenderness. NEUROLOGICAL: Alert oriented 3. Nonfocal. Psych cooperative IV line sites ok. Results - Labs CBC & Chem 7: 09/10/18 05:53 09/10/18 05:53 Labs: Laboratory Results - last 24 hr 09/08/18 09/10/18 09/10/18 18:10 05:53 05:53 WBC 16.0 H RBC 3.77 L Hgb 9.5 L Hct 29.5 L MCV 78.2 L MCH 25.3 L MCHC 32.3 RDW 20.4 H Plt Count 125 L MPV 9.2 Neut % (Auto) 82.7 H Lymph % (Auto) 10.5 [place] % (Auto) 6.5 Eos % (Auto) 0.1 Baso % (Auto) 0.2 Neut # (Auto) 13.3 H Lymph # (Auto) 1.7 [place] # (Auto) 1.0 H Eos # (Auto) 0.0 Baso # (Auto) 0.0 WBC Differential . Differential Comment Auto diff final Sodium 136 Potassium 3.3 L Chloride 102 Carbon Dioxide 25.5 Anion Gap 9 BUN 18 Creatinine 0.84 Estimated GFR 65 L Random Glucose 67 L Calcium 9.0 Urine Color Yellow Urine Clarity Cloudy H Urine pH 6.0 Ur Specific [place] 1.025 Urine Protein 300 or greater H Urine Glucose (UA) Negative Urine Ketones Negative Urine Occult Blood Small H Urine Nitrate Positive H Urine Bilirubin Negative Urine Urobilinogen 0.2 Ur Leukocyte Esterase Negative Urine RBC 0-3 Urine WBC 21-50 H Urine WBC Clumps Few H Ur Squamous Epith Cells 0-5 Urine Bacteria Many H Micro UA Comment Culture indicated Ur Microscopic Review Microscopic reviewed Urine Culture Comments Culture indicated - Imaging Chest X-Ray 09/08/18 18:03 CONCLUSION: 1. No acute abnormality. Knee X-Ray 09/08/18 18:03 CONCLUSION: 1. Hardware within the distal femur and proximal tibia status post revision of right knee arthroplasty. 2. No acute fracture or dislocation. Venous Doppler Study 09/08/18 18:08 CONCLUSION: 1. The study is negative for lower extremity deep venous thrombosis. 2. Right inguinal lymphadenopathy which is nonspecific. Assessment and Plan - Plan Possible sepsis present on admission(leukocytosis, tachycardia, bacteremia) Group G beta strep bacteremia: Source is likely GI or skin E. coli in the urine likely contamination as patient does not have any symptoms. Acute renal failure on admission now resolved High-grade leukocytosis appears to be improving Prior history of multiple right knee hardware infections currently does not appear to be the source of infection. Right knee swelling: Await ortho input. Recommendations Repeat blood cultures x2 Discontinue Zosyn IV Start ceftriaxone 2 g IV every 24 hours Continue vancomycin IV target trough 15-20 bacteremia Check 2D echo. Follow cultures Follow clinical course No PICC till cleared by ID May need further workup if has persistent bacteremia: GI workup to look for any polyps or malignancy.
--- NOTE | 2018-09-10 17:18 | P.PNOP ---
Subjective Interval history: pt feeling better on antibiotics fevers improved much less knee pain Physical Exam Vital signs: Vital Signs 09/09/18 18:10 09/09/18 20:00 09/10/18 00:00 Temperature 99.5 F 99.0 F 98.7 F Pulse Rate 77 73 63 Respiratory Rate 18 20 20 Blood Pressure 149/66 H 167/72 H 150/69 H Pulse Oximetry 93 L 94 L 94 L 09/10/18 04:00 09/10/18 08:00 09/10/18 11:54 Temperature 98.6 F 99.4 F 99.0 F Pulse Rate 70 110 H 110 H Respiratory Rate 20 20 20 Blood Pressure 183/73 H 173/72 H 201/73 H Pulse Oximetry 96 94 L 94 L 09/10/18 12:42 09/10/18 16:00 Temperature 101.5 F H Pulse Rate 104 H Respiratory Rate 20 Blood Pressure 181/89 H 189/78 H Pulse Oximetry 93 L Intake & Output 09/09/18 09/10/18 09/10/18 18:59 06:59 18:59 Intake Total 997 / 997 1305 / 1305 100 / 100 Output Total 2 / 2 2 / 2 Balance 997 / 997 1303 / 1303 98 / 98 Weight 61.7 kg Intake: IV 997 / 997 1305 / 1305 100 / 100 KCl Inj 10 MEQ In 1/2 Normal 947 / 947 1005 / 1005 Saline Inj 1,000 ML @ 75 mls/hr IV.CONT .[id number] [facility] Rx#: [id number] Zosyn 3.375 GM Premix 50 ML @ 50 / 50 50 / 50 100 / 100 100 mls/hr IV.SIG Q8H [facility] Rx#: [id number] Vancomycin Inj 850 MG In NS Inj 250 / 250 250 ML @ 250 mls/hr IV.SIG Q24H [facility] Rx#:[id number] Output: Urine 2 / 2 Stool Other: # Voids 3 # Urine Diapers 2 Date of Last Bowel Movement 09/09/18 09/10/18 # Bowel Movements 2 - Routine Neurological Exam right knee incison healed, no redness mild swelling able to do straight leg raise in bed NVI distally no calf swelling Results - Labs CBC & Chem 7: 09/10/18 05:53 09/10/18 05:53 Laboratory Results - last 24 hr 09/10/18 09/10/18 05:53 05:53 WBC 16.0 H RBC 3.77 L Hgb 9.5 L Hct 29.5 L MCV 78.2 L MCH 25.3 L MCHC 32.3 RDW 20.4 H Plt Count 125 L MPV 9.2 Neut % (Auto) 82.7 H Lymph % (Auto) 10.5 [place] % (Auto) 6.5 Eos % (Auto) 0.1 Baso % (Auto) 0.2 Neut # (Auto) 13.3 H Lymph # (Auto) 1.7 [place] # (Auto) 1.0 H Eos # (Auto) 0.0 Baso # (Auto) 0.0 WBC Differential . Differential Comment Auto diff final Sodium 136 Potassium 3.3 L Chloride 102 Carbon Dioxide 25.5 Anion Gap 9 BUN 18 Creatinine 0.84 Estimated GFR 65 L Random Glucose 67 L Calcium 9.0 Microbiology 09/08/18 17:51 Blood - Peripheral Aerobic Blood Culture - Preliminary gram positive cocci 09/08/18 17:51 Blood - Peripheral Anaerobic Blood Culture - Preliminary Beta Streptococcus Group G 09/08/18 18:00 Blood - Peripheral Aerobic Blood Culture - Preliminary Beta Streptococcus Group G 09/08/18 18:00 Blood - Peripheral Anaerobic Blood Culture - Preliminary Beta Streptococcus Group G 09/08/18 18:10 Clean Catch Urine Urine Culture - Final Escherichia coli Assessment and Plan - Assessment and Plan 83 year old female status post right TKA and revisions for infection, presenting with right knee pain and positive blood cultures concerning for reinfection. Recommend continuation of IV antibiotics. performed bedside aspiration of right knee under sterile [id number] 40cc fluid expressed sent for culture and sensitvity cell count and crystal anaylsis I spoke with patient about possibility of infection and need for further surgery Patient currently states she does not want surgery on her knee -will follow aspiration results
[2018-09-10] MEDS: Acetaminophen 325 MG Tablet PO PRN (17:27)
--- NOTE | 2018-09-10 19:51 | CT ---
EXAM DATE: 09/10/2018 7:44 PM EST AGE/SEX: 83 years / Female INDICATIONS: Right knee pain, history of septic arthritis, evaluate for cellulitis. CLINICAL DATA: This is the patient's initial encounter. Patient reports that signs and symptoms have been present for 3 days and indicates a pain score of 10/10. MEDICAL/SURGICAL HISTORY: Hypertension. Gastroesophageal reflux disease. Total knee replacement, r ight. RADIATION DOSE: 8.82 CTDI (mGy) COMPARISON: No prior exams available for comparison. TECHNIQUE: Multiple contiguous axial images were acquired using a multirow detector CT scanner after the intravenous administration of 70 ml Omnipaque 350 (iohexol) nonionic water-soluble contrast as a single exam dose. Multiplanar reconstruction was performed in the sagittal and coronal planes. Usi ng automated exposure control and adjustment of the mA and/or kV according to patient size, radiation dose was kept as low as reasonably achievable to obtain optimal diagnostic quality images. DICOM fo rmat image data is available electronically for review and comparison. FINDINGS: Patient has a right knee arthroplasty. Alignment is within normal limits. No fractures are demonstrat ed. No evidence of hardware failure or loosening. I don't see an acute bony destructive process. There is a large joint effusion. Synovium is diffusely thickened and enhancing. No extra-articular fl uid collection demonstrated. CONCLUSION: 1. Nonspecific large joint effusion and severe synovitis. 2. No extra-articular fluid collection or perceptible cellulitis. 3. Right knee arthroplasty changes without evidence of fracture, subluxation or hardware failure/loo sening. No acute bony destructive process is seen. Electronically signed by: Kishor Harding MD 09/10/2018 7:49 PM EST
[2018-09-10] MEDS: Enoxaparin Inj 30 MG/0.3 ML Syringe SQ SCH ×2 (20:39→22:33)
--- NOTE | 2018-09-10 20:59 | ECHRPT ---
Indication: SEPSIS POSS ENDOCARDITIS CONCLUSIONS Normal left ventricular size and wall thickness. The left ventricular systolic function is normal wi th an estimated ejection fraction in the range of 60-65%. No regional wall motion abnormalities are prese nt. Trace mitral valve regurgitation. Mild focal calcification of the posterior mitral valve leaflet. There is trace tricuspid valve regurgitation. BP: / HR: Rhythm: MEASUREMENTS (Male / Female) Normal Values Technical Quality: 2D ECHO LV Diastolic Diameter PLAX 4.9 cm 4.2 - 5.9 / 3.9 - 5.3 cm LV Systolic Diameter PLAX 3.8 cm IVS Diastolic Thickness 0.8 cm 0.6 - 1.0 / 0.6 - 0.9 cm LVPW Diastolic Thickness 0.8 cm 0.6 - 1.0 / 0.6 - 0.9 cm LV Relative Wall Thickness 0.3 RV Internal Dim ED PLAX 2.5 cm LVOT Diameter 1.9 cm Aortic Root Diameter 2.9 cm LA Systolic Diameter LX 3.2 cm 3.0 - 4.0 / 2.7 - 3.8 cm DOPPLER AV Peak Velocity 206.0 cm/s AV Peak Gradient 17.0 mmHg LVOT Peak Velocity 153.0 cm/s LVOT Peak Gradient 9.4 mmHg AV Area Cont Eq pk 2.1 cm Mitral E Point Velocity 134.0 cm/s Mitral A Point Velocity 87.9 cm/s Mitral E to A Ratio 1.5 LV E' Lateral Velocity 9.0 cm/s Mitral E to LV E' Lateral Ratio 14.9 LV E' Septal Velocity 7.4 cm/s Mitral E to LV E' Septal Ratio 18.1 TR Peak Velocity 190.0 cm/s TR Peak Gradient 14.4 mmHg Right Atrial Pressure 10.0 mmHg Pulmonary Artery Systolic Pressu 24.4 mmHg Right Ventricular Systolic Press 24.4 mmHg PV Peak Velocity 94.1 cm/s PV Peak Gradient 3.5 mmHg FINDINGS LEFT VENTRICLE Normal left ventricular size and wall thickness. The left ventricular systolic function is normal wi th an estimated ejection fraction in the range of 60-65%. No regional wall motion abnormalities are prese nt. RIGHT VENTRICLE Normal right ventricular size and systolic function. LEFT ATRIUM The left atrial size is normal. RIGHT ATRIUM The right atrial size is normal. ATRIAL SEPTUM Normal atrial septal thickness without atrial level shunting by limited color doppler interrogation. AORTA The aortic root and proximal ascending aorta are normal in size on limited imaging. MITRAL VALVE Trace mitral valve regurgitation. Mild focal calcification of the posterior mitral valve leaflet. AORTIC VALVE Trileaflet aortic valve. No aortic valve stenosis or regurgitation. TRICUSPID VALVE There is trace tricuspid valve regurgitation. PULMONARY VALVE No pulmonary valve regurgitation or stenosis. VESSELS The inferior vena cava is normal in size. PERICARDIUM There is a small pericardial effusion present. Romain Sotomayor MD (Electronically Signed) Final Date:10 September 2018 20:58
[2018-09-10] MEDS: Vancomycin Inj 850 MG in Sodium Chlor 0.9% Inj 250 ML IV.SIG SCH (22:24)
[2018-09-11 00:08] LABS: Appearance,Synovial Fluid Moderate (Clear); Color,Synovial Fluid Yellow (Straw); Lymphocytes,Synovial Fluid 5 %; Neutrophils,Synovial Fluid 93 % (0-25)
[2018-09-11] MEDS: Potassium Chloride Inj 10 MEQ in Sodium Chloride 0.45 % Inj 1,000 ML IV.CONT SCH ×3 (00:22→17:07)
[2018-09-11] MEDS: Acetaminophen 325 MG Tablet PO PRN (04:53)
[2018-09-11 06:23] LABS: Baso % (Auto) 0.2 % (0.0-2.0); Eos % (Auto) 0.3 % (0.0-4.0); Hemoglobin 9.2 gm/dL (11.6-15.3); Lymph # (Auto) 1.3 th/mm3 (1.0-4.8); Lymph % (Auto) 12.3 % (9.0-44.0); Mean Corpuscular Hemoglobin 25.6 pg (27.0-34.0); Mean Corpuscular Volume 77.7 fL (80.0-100.0); Mono # (Auto) 0.9 th/mm3 (0.0-0.9); Mono % (Auto) 8.7 % (0.0-8.0); Neut # (Auto) 8.6 th/mm3 (1.8-7.7); Neut % (Auto) 78.5 % (16.0-70.0); Platelet Count 141 th/mm3 (150-450); Red Blood Count 3.61 mil/mm3 (4.00-5.30); Red Cell Distribution Width 19.5 % (11.6-17.2); White Blood Count 10.9 th/mm3 (4.0-11.0)
[2018-09-11 06:46] LABS: Calcium 8.7 mg/dL (8.5-10.1); Carbon Dioxide 24.7 meq/L (21.0-32.0); Potassium 3.2 meq/L (3.5-5.1)
[2018-09-11] MEDS: Pantoprazole Sodium 20 MG DR Tablet PO SCH ×2 (08:16→20:58)
[2018-09-11] MEDS: Montelukast 10 MG Tablet PO SCH (08:16)
[2018-09-11] MEDS: Senna/Docusate Sodium 8.6/50 MG Tablet PO SCH ×2 (08:16→21:00)
[2018-09-11] MEDS: Verapamil SR 240 MG Tablet PO SCH (08:17)
--- NOTE | 2018-09-11 09:17 | P.PNOP ---
Subjective Interval history: knee pain much improved. Physical Exam Vital signs: Vital Signs 09/10/18 11:54 09/10/18 12:42 09/10/18 16:00 Temperature 99.0 F 101.5 F H Pulse Rate 110 H 104 H Respiratory Rate 20 20 Blood Pressure 201/73 H 181/89 H 189/78 H Pulse Oximetry 94 L 93 L 09/10/18 17:30 09/10/18 20:00 09/10/18 23:53 Temperature 96.7 F L Pulse Rate 78 56 L Respiratory Rate 18 Blood Pressure 156/58 H Pulse Oximetry 93 L 94 L 09/11/18 00:00 09/11/18 01:20 09/11/18 03:22 Temperature 98.8 F Pulse Rate 51 L 55 L Respiratory Rate 20 16 Blood Pressure 167/68 H Pulse Oximetry 93 L 09/11/18 04:00 09/11/18 04:04 09/11/18 07:25 Temperature 100.2 F H 98.4 F Pulse Rate 75 63 74 Respiratory Rate 20 20 Blood Pressure 181/73 H 169/75 H Pulse Oximetry 93 L 93 L Intake & Output 09/10/18 09/11/18 09/11/18 18:59 06:59 18:59 Intake Total 100 / 100 1349 / 1349 Output Total 6 / 6 Balance 94 / 94 1349 / 1349 Intake: IV 100 / 100 1349 / 1349 KCl Inj 10 MEQ In 1/2 Normal 999 / 999 Saline Inj 1,000 ML @ 75 mls/hr IV.CONT .[id number] [facility] Rx#: [id number] Zosyn 3.375 GM Premix 50 ML @ 100 / 100 100 mls/hr IV.SIG Q8H [facility] Rx#: [id number] Vancomycin Inj 850 MG In NS Inj 250 / 250 250 ML @ 250 mls/hr IV.SIG Q24H [facility] Rx#:[id number] Rocephin Inj 2,000 MG In NS Inj 100 / 100 100 ML @ 200 mls/hr IV.SIG Q24H [facility] Rx#:[id number] Output: Urine 1 / Stool 5 / 5 Other: # Incontinent Voids 3 Date of Last Bowel Movement 09/10/18 09/10/18 Narrative: in bed, nad mild swelling R knee no pain with ROM neg homans nvi Results - Labs CBC & Chem 7: 09/11/18 06:08 09/11/18 06:08 Laboratory Results - last 24 hr 09/10/18 09/10/18 09/11/18 17:07 17:07 06:08 WBC 10.9 RBC 3.61 L Hgb 9.2 L Hct 28.0 L MCV 77.7 L MCH 25.6 L MCHC 33.0 RDW 19.5 H Plt Count 141 L MPV 9.0 Neut % (Auto) 78.5 H Lymph % (Auto) 12.3 [place] % (Auto) 8.7 H Eos % (Auto) 0.3 Baso % (Auto) 0.2 Neut # (Auto) 8.6 H Lymph # (Auto) 1.3 [place] # (Auto) 0.9 Eos # (Auto) 0.0 Baso # (Auto) 0.0 WBC Differential . Differential Comment Auto diff final Sodium Potassium Chloride Carbon Dioxide Anion Gap BUN Creatinine Estimated GFR Random Glucose Calcium Synovial Color Yellow Synovial Appearance Moderate H Synovial RBC 18913 H Synovial Nuc Cells 64566 H Synovial Neutrophils 93 H Synovial Lymphocytes 5 Synovial Monocytes 2 Synovial Crystals None 09/11/18 06:08 WBC RBC Hgb Hct MCV MCH MCHC RDW Plt Count MPV Neut % (Auto) Lymph % (Auto) [place] % (Auto) Eos % (Auto) Baso % (Auto) Neut # (Auto) Lymph # (Auto) [place] # (Auto) Eos # (Auto) Baso # (Auto) WBC Differential Differential Comment Sodium 134 L Potassium 3.2 L Chloride 104 Carbon Dioxide 24.7 Anion Gap 5 BUN 18 Creatinine 0.81 Estimated GFR 68 L Random Glucose 87 Calcium 8.7 Synovial Color Synovial Appearance Synovial RBC Synovial Nuc Cells Synovial Neutrophils Synovial Lymphocytes Synovial Monocytes Synovial Crystals Microbiology 09/10/18 17:07 Fluid - Other Gram Stain - Final 09/08/18 17:51 Blood - Peripheral Aerobic Blood Culture - Preliminary gram positive cocci 09/08/18 17:51 Blood - Peripheral Anaerobic Blood Culture - Preliminary Beta Streptococcus Group G 09/08/18 18:00 Blood - Peripheral Aerobic Blood Culture - Preliminary Beta Streptococcus Group G 09/08/18 18:00 Blood - Peripheral Anaerobic Blood Culture - Preliminary Beta Streptococcus Group G 09/08/18 18:10 Clean Catch Urine Urine Culture - Final Escherichia coli - Imaging Impressions Knee CT 09/10/18 00:00 CONCLUSION: 1. Nonspecific large joint effusion and severe synovitis. 2. No extra-articular fluid collection or perceptible cellulitis. 3. Right knee arthroplasty changes without evidence of fracture, subluxation or hardware failure/loosening. No acute bony destructive process is seen. Assessment and Plan - Assessment and Plan 83 year old female status post right TKA and revisions for infection, presenting with right knee pain and positive blood cultures concerning for reinfection. Recommend continuation of IV antibiotics. bedside aspiration of right knee under sterile technique 40cc fluid expressed - 09/10/18 sent for culture and sensitvity/ cell count and crystal anaylsis I spoke with patient about probability of infection and need for further surgery Patient currently states she does not want surgery on her knee -will follow aspiration results
--- NOTE | 2018-09-11 12:46 | P.PNIM ---
Subjective Interval history: No new clinical complaints. Physical Exam Vital signs: Last Vital Signs Temp 97.9 F 09/11/18 11:15 Pulse 58 L 09/11/18 11:15 Resp 20 09/11/18 11:15 BP 138/78 09/11/18 11:15 Pulse Ox 92 L 09/11/18 11:15 Narrative: General: NAD, AAOx3 Chest: CTA bilaterally Cardiac: Regular Abd: +BS, soft ND/NT Ext: Right knee swelling, no erythema or drainage. Results Labs CBC & Chem 7: 09/11/18 06:08 09/11/18 06:08 Imaging Chest X-Ray 09/08/18 18:03 CONCLUSION: 1. No acute abnormality. Knee X-Ray 09/08/18 18:03 CONCLUSION: 1. Hardware within the distal femur and proximal tibia status post revision of right knee arthroplasty. 2. No acute fracture or dislocation. Venous Doppler Study 09/08/18 18:08 CONCLUSION: 1. The study is negative for lower extremity deep venous thrombosis. 2. Right inguinal lymphadenopathy which is nonspecific. Knee CT 09/10/18 00:00 CONCLUSION: 1. Nonspecific large joint effusion and severe synovitis. 2. No extra-articular fluid collection or perceptible cellulitis. 3. Right knee arthroplasty changes without evidence of fracture, subluxation or hardware failure/loosening. No acute bony destructive process is seen. Assessment and Plan Plan Bacteremia Septic arthritis, hx of MSSA UTI - Pt is a pleasant 83 y/o female with HTN, osteoporosis, emphysema and hx of septic arthritis. 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 Earlier this year she was admitted for septic arthritis in the right knee in 01/2018 and was found to have an MSSA infection. She underwent I&D of the right TKA with removal of prosthesis and placement of abx spacer with Dr. Toney 02/02/18. Pt was discharged on IV Vancomycin which was completed on 03/16/18. Pt was readmitted to [facility] on 05/02/18 and underwent right knee revision total knee arthroplasty, femoral and tibial components with Dr. Toney. Patient states that from April until June 2018 she was reportedly on antibiotics. - Pt presented to the ED on 09/08/18 with complaints of right knee/leg swelling/ pain and notes that the area is warm to touch. Pt also complained of generalized weakness. - Knee X-Ray (09/08/18): 1. Hardware within the distal femur and proximal tibia status post revision of right knee arthroplasty. 2. No acute fracture or dislocation. - Venous Doppler Study (09/08/18): 1. The study is negative for lower extremity deep venous thrombosis. 2. Right inguinal lymphadenopathy which is nonspecific. - WBC count at admission was greater than 26,000 with a urine suggestive of a UTI. - Blood cultures (09/08/18) with 4/4 cultures positive for Group G beta strep - Urine culture with E. coli - Vancomycin (09/08/18 - present) and Zosyn (09/08/18 - 09/10/18) - Orthopedic surgery is following. - Appreciate consult from ID - Zosyn stopped on 09/10 and Ceftriaxone 2gm IV Q24h started (09/10/18 - present) - CT right knee (09/10/18): 1. Nonspecific large joint effusion and severe synovitis. 2. No extra-articular fluid collection or perceptible cellulitis. 3. Right knee arthroplasty changes without evidence of fracture, subluxation or hardware failure/loosening. No acute bony destructive process is seen. - 2D echo (09/10/18): - Normal left ventricular size and wall thickness. - Estimated ejection fraction in the range of 60-65%. No regional wall motion abnormalities are present. - Trace mitral valve regurgitation. Mild focal calcification of the posterior mitral valve leaflet. - There is trace tricuspid valve regurgitation - Pt was seen by Dr. Toney on 09/10 and he performed bedside aspiration of right knee under sterile technique with 40cc fluid expressed. This fluid was sent for culture and sensitivity, cell count and crystal analysis. - Gram stain with many WBCs and rare gram positive cocci in pairs - Repeat blood cultures (09/10/18) are negative x 1 day. - Repeat labs in AM - Cont. IVF - Diet as tolerated - Supportive care HTN - Home meds resumed but BP was not well controlled, her Clonidine was increased to 0.2mg BID on 09/10, cont. Losartan 50mg daily and Dyazide - BP better controlled on 09/11 - Vasotec PRN - Monitor GERD - PPI Hyperlipidemia - Cont. home med DVT prophylaxis with SCDs Attending Attestation The exam, history, and the medical decision-making described in the above note were completed with the assistance of the mid-level provider. I reviewed and agree with the findings presented. I attest that I had a [id number] encounter with the patient on the same day, and personally performed and documented my assessment and findings in the medical record. Patient examined. Assessment and plan formulated with Abby Sloan PA-C. I agree with the above. Pt has NO new clinical complaints. Pt denies fever or chills. Follow cultures Pt does NOT want colonoscopy or KIERSTEN for further evaluation. Anticipate d/c to home 09/14 once cultures are negative x 3d. Progress Note: Quality VTE Deep Vein Thrombosis/Pulmonary Embolism Present on Admission: No
[2018-09-11] MEDS ORDERED: Pharmacy Ordered Lab Info OTHER ONE (19:45)
[2018-09-11] MEDS: Vancomycin Inj 850 MG in Sodium Chlor 0.9% Inj 250 ML IV.SIG SCH (20:56)
[2018-09-11] MEDS: Enoxaparin Inj 30 MG/0.3 ML Syringe SQ SCH (21:00)
[2018-09-12] MEDS: Acetaminophen 325 MG Tablet PO PRN (00:08)
[2018-09-12] MEDS: Senna/Docusate Sodium 8.6/50 MG Tablet PO SCH ×2 (08:31→20:18)
[2018-09-12] MEDS: Verapamil SR 240 MG Tablet PO SCH (08:32)
[2018-09-12] MEDS: Pantoprazole Sodium 20 MG DR Tablet PO SCH ×2 (08:32→20:18)
[2018-09-12] MEDS: Montelukast 10 MG Tablet PO SCH (08:32)
--- NOTE | 2018-09-12 11:32 | P.PNOP ---
Subjective Interval history: R knee pain much improved. went walking with PT, no difficulty. Patient states "I am not going to have any more surgeries" several times while in the room. Physical Exam Vital signs: Vital Signs 09/11/18 11:15 09/11/18 14:35 09/11/18 19:00 Temperature 97.9 F 98.0 F Pulse Rate 58 L 68 85 Respiratory Rate 20 20 Blood Pressure 138/78 161/74 H Pulse Oximetry 92 L 96 09/11/18 20:00 09/12/18 00:00 09/12/18 04:00 Temperature 100.9 F H 100.5 F H 97.8 F Pulse Rate 79 85 76 Respiratory Rate 18 18 18 Blood Pressure 206/87 H 180/78 H 170/79 H Pulse Oximetry 95 95 96 09/12/18 04:24 09/12/18 07:43 09/12/18 08:00 Temperature 98.3 F Pulse Rate 66 74 66 Respiratory Rate 20 Blood Pressure 200/80 H Pulse Oximetry 94 L 09/12/18 09:07 Temperature Pulse Rate Respiratory Rate Blood Pressure Pulse Oximetry 95 Intake & Output 09/11/18 09/12/18 09/12/18 18:59 06:59 18:59 Intake Total 1755 / 1755 100 / 100 1116 / 1116 Balance 1755 / 1755 100 / 100 1116 / 1116 Weight 64.2 kg Intake: IV 1005 / 1005 100 / 100 1116 / 1116 KCl Inj 10 MEQ In 1/2 Normal 1005 / 1005 866 / 866 Saline Inj 1,000 ML @ 75 mls/hr IV.CONT .[id number] JERI Rx#: [id number] Vancomycin Inj 850 MG In NS Inj 250 / 250 250 ML @ 250 mls/hr IV.SIG Q24H JERI Rx#:[id number] Rocephin Inj 2,000 MG In NS Inj 100 / 100 100 ML @ 200 mls/hr IV.SIG Q24H JERI Rx#:[id number] Oral 750 / 750 Other: # Incontinent Voids 1 Date of Last Bowel Movement 09/11/18 09/11/18 09/11/18 # Bowel Movements 1 1 Narrative: in bed, nad, friends in room R knee mild swelling, no erythema no pain with ROM neg homans nvi Results - Labs CBC & Chem 7: 09/11/18 06:08 09/11/18 06:08 Laboratory Results - last 24 hr 09/11/18 20:00 Vancomycin Trough 11.2 H Microbiology 09/10/18 16:41 Blood - Peripheral Aerobic Blood Culture - Preliminary No growth in 2 days 09/10/18 16:41 Blood - Peripheral Anaerobic Blood Culture - Preliminary No growth in 2 days 09/10/18 16:35 Blood - Peripheral Aerobic Blood Culture - Preliminary No growth in 2 days 09/10/18 16:35 Blood - Peripheral Anaerobic Blood Culture - Preliminary No growth in 2 days 09/10/18 17:07 Fluid - Other Gram Stain - Final 09/10/18 17:07 Fluid - Other Body Fluid Culture - Preliminary No growth in 48 hours 09/08/18 18:00 Blood - Peripheral Aerobic Blood Culture - Final Beta Streptococcus Group G 09/08/18 18:00 Blood - Peripheral Anaerobic Blood Culture - Final Beta Streptococcus Group G 09/08/18 17:51 Blood - Peripheral Aerobic Blood Culture - Final Beta Streptococcus Group G 09/08/18 17:51 Blood - Peripheral Anaerobic Blood Culture - Final Beta Streptococcus Group G Assessment and Plan - Assessment and Plan 83 year old female status post right TKA and revisions for infection, presenting with right knee pain and positive blood cultures/UTI concerning for reinfection. Recommend continuation of IV antibiotics. bedside aspiration of right knee under sterile technique 40cc fluid expressed - 09/10/18 - 40k wbc - few gram+ cocci in pairs - NGTD I spoke with patient about infection R Knee and need for further surgery including removal of hardware and placement of abx spacer. Patient states she does not want surgery on her knee -patient would like to be discharged with antibiotics for suppression. f/up dr. platt 2 weeks
[2018-09-12] MEDS: Potassium Chloride Inj 10 MEQ in Sodium Chloride 0.45 % Inj 1,000 ML IV.CONT SCH ×2 (13:37→20:16)
--- NOTE | 2018-09-12 15:48 | P.PNID ---
Subjective Remarks: is an 83-year-old female with past medical history significant for total knee replacement in the past by Dr. Toney with subsequent infection on multiple occasions. Patient eventually required right knee hardware replacement with a spacer followed by revision of her right knee in April 2018. Patient reports that after her discharge in April she has not had any infection related problems in her right knee and has not been on any antibiotics since June. Of note she has grown methicillin sensitive staph aureus in the past. Patient now presents to the emergency department with generalized weakness, nonspecific. She denies any cardia pulmonary symptoms. She denies any GI symptoms such as nausea vomiting abdominal pain or any GI bleed. Patient does not remember if she has ever had a colonoscopy or EGD. While in the emergency room patient underwent an x-ray of the knee as well as an ultrasound which is essentially negative. WBC count was 20,000 with a urine suggestive of UTI Ancef therefore she was admitted for further evaluation. Patient is also been evaluated by Dr. Toney's group and patient informs me that he does not think that this is related to her knee. Patient denies any urinary complaints. Patient denies any GI complaints and denies any colonoscopy or EGD in the recent past. Patient has dentures and denies any problems. Patient denies any skin ulcerations or skin breaks suggestive of infection. Patient underwent workup for possible sepsis including blood cultures. UA is positive for E. coli. Blood cultures are positive for group G beta strep. Patient was empirically started on Zosyn and IV vancomycin. Infectious diseases consulted for evaluation and management of group G beta strep bacteremia. At the time of my evaluation patient is on a regular floor awake alert oriented x3. She denies any knee pain or any skin issues. She denies any diarrhea or GI bleeding. She denies any dental problems. Overnight events reviewed. Denies any fever. Reports that her right knee swells and becomes red intermittently. Discussed with patient that a colonoscopy would be recommended to rule out any cancer or polyp as a cause for the strep bacteremia. Patient adamantly refused a colonoscopy. Denies any rash Denies any diarrhea. Antibiotics: Ceftriaxone IV Vanco IV Lines: Line sites okay. Past Medical History: Reviewed. Allergies/Adverse Reactions: Allergies cefuroxime Allergy (Intermediate, Verified 09/08/18 17:23) Rash aspirin Adverse Reaction (Intermediate, Verified 09/08/18 17:23) GI codeine Adverse Reaction (Intermediate, Verified 09/08/18 17:23) HYPER morphine Adverse Reaction (Unknown, Verified 09/08/18 17:23) states causes confusion Objective Vital Signs 09/11/18 19:00 09/11/18 20:00 09/12/18 00:00 Temperature 100.9 F H 100.5 F H Pulse Rate 85 79 85 Respiratory Rate 18 18 Blood Pressure 206/87 H 180/78 H Pulse Oximetry 95 95 09/12/18 04:00 09/12/18 04:24 09/12/18 07:43 Temperature 97.8 F 98.3 F Pulse Rate 76 66 74 Respiratory Rate 18 20 Blood Pressure 170/79 H 200/80 H Pulse Oximetry 96 94 L 09/12/18 08:00 09/12/18 09:07 09/12/18 12:00 Temperature 98.1 F Pulse Rate 66 69 Respiratory Rate 20 Blood Pressure 140/70 Pulse Oximetry 95 95 Intake & Output 09/11/18 09/12/18 09/12/18 18:59 06:59 18:59 Intake Total 1755 / 1755 100 / 100 1255 / 1255 Balance 1755 / 1755 100 / 100 1255 / 1255 Weight 64.2 kg Intake: IV 1005 / 1005 100 / 100 1255 / 1255 KCl Inj 10 MEQ In 1/2 Normal 1005 / 1005 1005 / 1005 Saline Inj 1,000 ML @ 75 mls/hr IV.CONT .[id number] JERI Rx#: [id number] Vancomycin Inj 850 MG In NS Inj 250 / 250 250 ML @ 250 mls/hr IV.SIG Q24H JERI Rx#:[id number] Rocephin Inj 2,000 MG In NS Inj 100 / 100 100 ML @ 200 mls/hr IV.SIG Q24H JERI Rx#:[id number] Oral 750 / 750 Other: # Incontinent Voids 1 Date of Last Bowel Movement 09/11/18 09/11/18 09/11/18 # Bowel Movements 1 1 09/10/18 16:41 Blood - Peripheral Aerobic Blood Culture - Preliminary No growth in 2 days 09/10/18 16:41 Blood - Peripheral Anaerobic Blood Culture - Preliminary No growth in 2 days 09/10/18 16:35 Blood - Peripheral Aerobic Blood Culture - Preliminary No growth in 2 days 09/10/18 16:35 Blood - Peripheral Anaerobic Blood Culture - Preliminary No growth in 2 days 09/10/18 17:07 Fluid - Other Gram Stain - Final 09/10/18 17:07 Fluid - Other Body Fluid Culture - Preliminary No growth in 48 hours 09/08/18 18:00 Blood - Peripheral Aerobic Blood Culture - Final Beta Streptococcus Group G 09/08/18 18:00 Blood - Peripheral Anaerobic Blood Culture - Final Beta Streptococcus Group G 09/08/18 17:51 Blood - Peripheral Aerobic Blood Culture - Final Beta Streptococcus Group G 09/08/18 17:51 Blood - Peripheral Anaerobic Blood Culture - Final Beta Streptococcus Group G 09/08/18 18:10 Clean Catch Urine Urine Culture - Final Escherichia coli Lab - Hematology Results 09/11/18 06:08 WBC 10.9 RBC 3.61 L Hgb 9.2 L Hct 28.0 L MCV 77.7 L MCH 25.6 L MCHC 33.0 RDW 19.5 H Plt Count 141 L MPV 9.0 Neut % (Auto) 78.5 H Lymph % (Auto) 12.3 Sevier % (Auto) 8.7 H Eos % (Auto) 0.3 Baso % (Auto) 0.2 Neut # (Auto) 8.6 H Lymph # (Auto) 1.3 Sevier # (Auto) 0.9 Eos # (Auto) 0.0 Baso # (Auto) 0.0 WBC Differential . Differential Comment Auto diff final Lab - Chemistry Results 09/11/18 06:08 Sodium 134 L Potassium 3.2 L Chloride 104 Carbon Dioxide 24.7 Anion Gap 5 BUN 18 Creatinine 0.81 Estimated GFR 68 L Random Glucose 87 Calcium 8.7 Imaging: ITS Impressions Chest X-Ray 09/08/18 18:03 CONCLUSION: 1. No acute abnormality. Knee X-Ray 09/08/18 18:03 CONCLUSION: 1. Hardware within the distal femur and proximal tibia status post revision of right knee arthroplasty. 2. No acute fracture or dislocation. Venous Doppler Study 09/08/18 18:08 CONCLUSION: 1. The study is negative for lower extremity deep venous thrombosis. 2. Right inguinal lymphadenopathy which is nonspecific. Knee CT 09/10/18 00:00 CONCLUSION: 1. Nonspecific large joint effusion and severe synovitis. 2. No extra-articular fluid collection or perceptible cellulitis. 3. Right knee arthroplasty changes without evidence of fracture, subluxation or hardware failure/loosening. No acute bony destructive process is seen. Physical Exam: GENERAL: Well-nourished well-developed, not in acute distress SKIN: Cool and dry, no generalized rash HEAD: Atraumatic. Normocephalic. No temporal or scalp tenderness. EYES: Pupils equal round and reactive. Scleral icterus. No injection or drainage. No petechia ENT: Nothing abnormal detected NECK: Trachea midline. Supple, nontender, no meningeal signs. CARDIOVASCULAR: HS audible. RESPIRATORY: Clear to auscultation bilaterally. GASTROINTESTINAL: Abdomen soft nontender. MUSCULOSKELETAL: Extremities without clubbing, cyanosis. Right knee surgical scar intact with no evidence of infection. Some swelling but no warmth or tenderness. NEUROLOGICAL: Alert oriented 3. Nonfocal. Psych cooperative IV line sites ok. Assessment and Plan - Plan Possible sepsis present on admission(leukocytosis, tachycardia, bacteremia) Group G beta strep bacteremia: Source is likely GI or skin E. coli in the urine likely contamination as patient does not have any symptoms. Acute renal failure on admission now resolved High-grade leukocytosis appears to be improving Prior history of multiple right knee hardware infections currently does not appear to be the source of infection. Right knee swelling: Await ortho input. Recommendations Repeat blood cultures x2 Continue ceftriaxone 2 g IV every 24 hours for 4 weeks. Post hospital infusion orders in chart. Discontinue vancomycin Check 2D echo: Negative for vegetations. Follow cultures Follow clinical course Patient refused colonoscopy or any further workup or surgeries at the present time. She is agreeable to doing IV antibiotics followed by oral suppression. Patient reports that she has been sent home and would like to go home with IV antibiotics. If overnight no fevers, WBC count normal, blood cultures negative ok to place PICC line and discharge patient. Post hospital infusion orders in chart. Patient needs follow-up with Dr. Park infectious disease. Will sign off please call back if any change in clinical condition or questions.
--- NOTE | 2018-09-12 15:57 | P.DCO ---
Post Hospital Infusion Therapy - Infusion Therapy Location of Infusion Therapy: Home Health Care IV Infusion Order Appointment Date: 09/13/18 - Patient Information Patient Weight: 64.2 kg - Diagnosis (1) Bacteremia due to Streptococcus Code(s): R78.81 - Bacteremia; B95.5 - Unspecified streptococcus as the cause of diseases classified elsewhere (2) Septic arthritis due to Streptococcus species Code(s): M00.20 - Other streptococcal arthritis, unspecified joint - Administer Medication Ceftriaxone Dose: 2 grams IV Directions: q 24 hours Start Treatment: 09/12/18 Stop Treatment: 10/15/18 - Additional Information Venous Access: Other (Midline) Additional Instructions: [x] Peripheral flush and dressing changes per protocol [x] Implanted port and central power line installer: * Implanted port: 10 ml Normal Saline followed by 5 ml Heparin 100 units/ml Heparin flush after each use and monthly to maintain. [] May leave port accessed during therapy. [] May leave peripheral site accessed for duration of therapy. [x] If patient has SOB or respiratory distress, check oxygen saturation. If less than 90% or clinical signs of respiratory distress, administer oxygen at 2 L/min. via nasal cannula and notify physician. [x] Anaphylaxis/Reaction orders: * Stop infusion. * Keep IV line open with saline flush. * Notify physician. * Monitor vital signs every 15 minutes until symptoms resolve. * Check Oxygen saturation; Oxygen at 2 L/min. via nasal cannula if less than 90% or clinical signs of respiratory distress. * Administer diphenhydramine (Benadryl) 25 mg IV STAT, (unless patient has received as pre-med). May repeat once, if necessary. * Solu-Cortef 250 mg IVP over 30-60 seconds, use 100 mg vials for each dissolution. * Epinephrine (1mg/1 ml) 0.3 mg subcutaneously or IVP now with any signs of respiratory distress. * Check with physician for new additional pre-med orders if patient is re- challenged or re-treated. [x] May remove PICC line when treatment complete, after confirming with Physician. [x] If the patient is admitted to the hospital, the ED, or transferred via [facility] , complete transfer form including medication reconciliation order sheet. Weekly Labs: CBC w/diff, Creatinine, CRP, LFTs (Hepatic Function Test) Additional Information: Please draw weekly labs and fax results to the numbers provided below. Also if any abnormal labs or change in clinical condition please call Dr. Casarez office. Dr.Reba Park office: Address: [address] [place] [address] - Case Management Consult Case Management Consult-IVF: Yes (Infusion orders for home health) - Patient Information Allergies cefuroxime Allergy (Intermediate, Verified 09/08/18 17:23) Rash aspirin Adverse Reaction (Intermediate, Verified 09/08/18 17:23) GI codeine Adverse Reaction (Intermediate, Verified 09/08/18 17:23) HYPER morphine Adverse Reaction (Unknown, Verified 09/08/18 17:23) states causes confusion (2) Septic arthritis due to Streptococcus species Qualifiers: Septic arthritis location: knee Laterality: right Qualified Code(s): M00.261 - Other streptococcal arthritis, right knee
--- NOTE | 2018-09-12 16:17 | P.PNIM ---
Subjective Interval history: No new complaints. However, pt had documented fever overnight. Physical Exam Vital signs: Last Vital Signs Temp 98.1 F 09/12/18 15:55 Pulse 88 09/12/18 15:55 Resp 20 09/12/18 15:55 BP 165/80 H 09/12/18 15:55 Pulse Ox 100 09/12/18 15:55 Narrative: General: NAD, AAOx3 Chest: CTA bilaterally Cardiac: Regular Abd: +BS, soft ND/NT Ext: Right knee swelling, no erythema or drainage. Results Labs CBC & Chem 7: 09/11/18 06:08 09/11/18 06:08 Assessment and Plan Plan Bacteremia Septic arthritis, hx of MSSA UTI - Pt is a pleasant 83 y/o female with HTN, osteoporosis, emphysema and hx of septic arthritis. 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 Earlier this year she was admitted for septic arthritis in the right knee in 01/2018 and was found to have an MSSA infection. She underwent I&D of the right TKA with removal of prosthesis and placement of abx spacer with Dr. Toney 02/02/18. Pt was discharged on IV Vancomycin which was completed on 03/16/18. Pt was readmitted to [facility] on 05/02/18 and underwent right knee revision total knee arthroplasty, femoral and tibial components with Dr. Toney. Patient states that from April until June 2018 she was reportedly on antibiotics. - Pt presented to the ED on 09/08/18 with complaints of right knee/leg swelling/ pain and notes that the area is warm to touch. Pt also complained of generalized weakness. - Knee X-Ray (09/08/18): 1. Hardware within the distal femur and proximal tibia status post revision of right knee arthroplasty. 2. No acute fracture or dislocation. - Venous Doppler Study (09/08/18): 1. The study is negative for lower extremity deep venous thrombosis. 2. Right inguinal lymphadenopathy which is nonspecific. - WBC count at admission was greater than 26,000 with a urine suggestive of a UTI. - Blood cultures (09/08/18) with 4/4 cultures positive for Group G beta strep - Urine culture with E. coli - Vancomycin (09/08/18 - present) and Zosyn (09/08/18 - 09/10/18) - Orthopedic surgery is following. - Appreciate consult from ID - Zosyn stopped on 09/10 - Ceftriaxone 2gm IV Q24h started (09/10/18 - present) - CT right knee (09/10/18): 1. Nonspecific large joint effusion and severe synovitis. 2. No extra-articular fluid collection or perceptible cellulitis. 3. Right knee arthroplasty changes without evidence of fracture, subluxation or hardware failure/loosening. No acute bony destructive process is seen. - 2D echo (09/10/18): - Normal left ventricular size and wall thickness. - Estimated ejection fraction in the range of 60-65%. No regional wall motion abnormalities are present. - Trace mitral valve regurgitation. Mild focal calcification of the posterior mitral valve leaflet. - There is trace tricuspid valve regurgitation - Pt was seen by Dr. Toney on 09/10 and he performed bedside aspiration of right knee under sterile technique with 40cc fluid expressed. This fluid was sent for culture and sensitivity, cell count and crystal analysis. - Gram stain with many WBCs and rare gram positive cocci in pairs - Repeat blood cultures (09/10/18) NGTD - Repeat labs in AM - Diet as tolerated - Supportive care - if pt remains afebrile overnight, then - PICC line 09/13 - and anticipate d/c to home with [facility] 09/13/18 - Case d/w Infectious Disease, Dr. Chan, 09/12/18 - DVT prophylaxis - supportive care HTN - Home meds resumed but BP was not well controlled, her Clonidine was increased to 0.2mg BID on 09/10, - increase Losartan to 100mg daily - continue Dyazide - continue verapamil 240mg daily - BP better controlled on 09/11 - Vasotec PRN - Monitor GERD - PPI Hyperlipidemia - Cont. home med DVT prophylaxis with SCDs Progress Note: Quality VTE Deep Vein Thrombosis/Pulmonary Embolism Present on Admission: No
--- NOTE | 2018-09-12 16:37 | P.DCO ---
Physical Therapy Order: Evaluate and treat Home Health Nursing Order: Medical education, Signs/symptoms of disease process, Medication education-adverse effect and IV medication administration Case Management Consult Case Management Consult-Home Health: Yes I have seen patient Jimmy Urban on 09/12/18. My clinical findings support the need for the requested home health care services because: Infection with risk of complications I certify that my clinical findings support that this patient is homebound because: Unsafe to leave home unassisted
[2018-09-12] MEDS ORDERED: Vancomycin Inj 1,100 MG in Sodium Chlor 0.9% Inj 250 ML IV.SIG SCH (18:00)
[2018-09-12] MEDS ORDERED: Vancomycin Inj 1,250 MG in Sodium Chlor 0.9% Inj 250 ML IV.SIG SCH (18:00)
[2018-09-12] MEDS: Enoxaparin Inj 30 MG/0.3 ML Syringe SQ SCH (21:24)
[2018-09-13] MEDS: Potassium Chloride Inj 10 MEQ in Sodium Chloride 0.45 % Inj 1,000 ML IV.CONT SCH ×2 (04:33→11:18)
[2018-09-13 07:55] LABS: Baso % (Auto) 0.3 % (0.0-2.0); Eos # (Auto) 0.1 th/mm3 (0.0-0.4); Eos % (Auto) 1.3 % (0.0-4.0); Hematocrit 29.5 % (35.0-46.0); Hemoglobin 9.4 gm/dL (11.6-15.3); Lymph % (Auto) 22.3 % (9.0-44.0); Mean Corpuscular HGB Conc 31.9 % (32.0-36.0); Mean Corpuscular Hemoglobin 25.4 pg (27.0-34.0); Mean Corpuscular Volume 79.8 fL (80.0-100.0); Mean Platelet Volume 8.6 fL (7.0-11.0); Mono # (Auto) 1.1 th/mm3 (0.0-0.9); Mono % (Auto) 12.5 % (0.0-8.0); Neut # (Auto) 5.6 th/mm3 (1.8-7.7); Neut % (Auto) 63.6 % (16.0-70.0); Platelet Count 211 th/mm3 (150-450); Red Cell Distribution Width 19.4 % (11.6-17.2); White Blood Count 8.8 th/mm3 (4.0-11.0)
--- NOTE | 2018-09-13 08:02 | P.PNOP ---
Subjective Interval history: denies pain in knee. states she is going home with antibiotics today. Physical Exam Vital signs: Vital Signs 09/12/18 09:07 09/12/18 12:00 09/12/18 15:55 Temperature 98.1 F 98.1 F Pulse Rate 69 88 Respiratory Rate 20 20 Blood Pressure 140/70 165/80 H Pulse Oximetry 95 95 100 09/12/18 20:00 09/13/18 00:00 09/13/18 04:00 Temperature 99.3 F 99.8 F H 99.3 F Pulse Rate 80 78 88 Respiratory Rate 18 18 18 Blood Pressure 206/84 H 147/88 H 125/88 Pulse Oximetry 95 95 95 Intake & Output 09/12/18 09/13/18 09/13/18 18:59 06:59 18:59 Intake Total 1255 / 1255 1100 / 1100 Balance 1255 / 1255 1100 / 1100 Weight 64.2 kg Intake: IV 1255 / 1255 1100 / 1100 KCl Inj 10 MEQ In 1/2 Normal 1005 / 1005 1000 / 1000 Saline Inj 1,000 ML @ 75 mls/hr IV.CONT .[id number] JERI Rx#: [id number] Vancomycin Inj 850 MG In NS Inj 250 / 250 250 ML @ 250 mls/hr IV.SIG Q24H JERI Rx#:[id number] Rocephin Inj 2,000 MG In NS Inj 100 / 100 100 ML @ 200 mls/hr IV.SIG Q24H JERI Rx#:[id number] Other: # Incontinent Voids 2 Date of Last Bowel Movement 09/11/18 09/12/18 # Bowel Movements 1 Narrative: in bed, nad no erythema mild swelling no pain with ROM neg homans Results - Labs CBC & Chem 7: 09/13/18 06:12 09/11/18 06:08 Laboratory Results - last 24 hr 09/13/18 06:12 WBC 8.8 RBC 3.70 L Hgb 9.4 L Hct 29.5 L MCV 79.8 L MCH 25.4 L MCHC 31.9 L RDW 19.4 H Plt Count 211 D MPV 8.6 Neut % (Auto) 63.6 Lymph % (Auto) 22.3 [place] % (Auto) 12.5 H Eos % (Auto) 1.3 Baso % (Auto) 0.3 Neut # (Auto) 5.6 Lymph # (Auto) 2.0 [place] # (Auto) 1.1 H Eos # (Auto) 0.1 Baso # (Auto) 0.0 WBC Differential . Differential Comment Auto diff final Microbiology 09/10/18 16:41 Blood - Peripheral Aerobic Blood Culture - Preliminary No growth in 2 days 09/10/18 16:41 Blood - Peripheral Anaerobic Blood Culture - Preliminary No growth in 2 days 09/10/18 16:35 Blood - Peripheral Aerobic Blood Culture - Preliminary No growth in 2 days 09/10/18 16:35 Blood - Peripheral Anaerobic Blood Culture - Preliminary No growth in 2 days 09/10/18 17:07 Fluid - Other Gram Stain - Final 09/10/18 17:07 Fluid - Other Body Fluid Culture - Preliminary No growth in 48 hours Assessment and Plan - Assessment and Plan 83 year old female status post right TKA and revisions for infection, presenting with right knee pain and positive blood cultures/UTI concerning for reinfection. Recommend continuation of IV antibiotics. bedside aspiration of right knee under sterile technique 40cc fluid expressed - 09/10/18 - 40k wbc - few gram+ cocci in pairs - NGTD I spoke with patient about infection R Knee and need for further surgery including removal of hardware and placement of abx spacer. Patient states she does not want surgery on her knee -patient would like to be discharged with antibiotics for suppression. PICC line and and IV abx per ID f/up dr. platt 2 weeks
[2018-09-13 08:22] VITALS: RESP 20; O2SAT 94
[2018-09-13] MEDS: Verapamil SR 240 MG Tablet PO SCH (09:35)
[2018-09-13] MEDS: Pantoprazole Sodium 20 MG DR Tablet PO SCH (09:36)
[2018-09-13] MEDS: Montelukast 10 MG Tablet PO SCH (09:37)
[2018-09-13] MEDS: Senna/Docusate Sodium 8.6/50 MG Tablet PO SCH (09:39)
[2018-09-13 11:47] VITALS: BP 187/78; PULSE 92; TEMP 97.9
--- NOTE | 2018-09-13 14:23 | P.DS ---
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 Patient has a history of previous total right knee that was performed proximally [address] Toney. The patient states she has had multiple infections for the right knee requiring the need for of a spacer. Patient then had a revision of her right knee in April. Patient states that from April until June she was on Antibiotics. Today she developed some right knee and leg swelling and pain and notes that the area is warm to touch. Other significant complaints include generalized weakness nonspecific dry cough denies any chest pain shortness of breath nausea vomiting or abdominal pain. Workup in the ER included an x-ray of the knee which was unremarkable venous ultrasound was done which essentially was negative there was some nonspecific adenopathy seen in the groin area, and the patient had a WBC count of greater than 20,000 with a urine suggestive of a UTI. ER discussed case with orthopedics patient will be started on IV antibiotics will be started on Zosyn there is a history of allergy to third generation cephalosporin but it looks like it was just a mild rash we will continue Zosyn and add vancomycin at this time blood cultures have been sent also urine cultures. DS: Summary Bacteremia Septic arthritis, hx of MSSA UTI - Pt is a pleasant 83 y/o female with HTN, osteoporosis, emphysema and hx of septic arthritis. 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 Earlier this year she was admitted for septic arthritis in the right knee in 01/2018 and was found to have an MSSA infection. She underwent I&D of the right TKA with removal of prosthesis and placement of abx spacer with Dr. Toney 02/02/18. Pt was discharged on IV Vancomycin which was completed on 03/16/18. Pt was readmitted to [facility] [place] on 05/02/18 and underwent right knee revision total knee arthroplasty, femoral and tibial components with Dr. Toney. Patient states that from April until June 2018 she was reportedly on antibiotics. - Pt presented to the ED on 09/08/18 with complaints of right knee/leg swelling/ pain and notes that the area is warm to touch. Pt also complained of generalized weakness. - Knee X-Ray (09/08/18): 1. Hardware within the distal femur and proximal tibia status post revision of right knee arthroplasty. 2. No acute fracture or dislocation. - Venous Doppler Study (09/08/18): 1. The study is negative for lower extremity deep venous thrombosis. 2. Right inguinal lymphadenopathy which is nonspecific. - WBC count at admission was greater than 26,000 with a urine suggestive of a UTI. - Blood cultures (09/08/18) with 4/4 cultures positive for Group G beta strep - Urine culture with E. coli - Vancomycin (09/08/18 - present) and Zosyn (09/08/18 - 09/10/18) - Orthopedic surgery is following. - Appreciate consult from ID - Zosyn stopped on 09/10 - Ceftriaxone 2gm IV Q24h started (09/10/18 - present) - CT right knee (09/10/18): 1. Nonspecific large joint effusion and severe synovitis. 2. No extra-articular fluid collection or perceptible cellulitis. 3. Right knee arthroplasty changes without evidence of fracture, subluxation or hardware failure/loosening. No acute bony destructive process is seen. - 2D echo (09/10/18): - Normal left ventricular size and wall thickness. - Estimated ejection fraction in the range of 60-65%. No regional wall motion abnormalities are present. - Trace mitral valve regurgitation. Mild focal calcification of the posterior mitral valve leaflet. - There is trace tricuspid valve regurgitation - Pt was seen by Dr. Toney on 09/10 and he performed bedside aspiration of right knee under sterile technique with 40cc fluid expressed. This fluid was sent for culture and sensitivity, cell count and crystal analysis. - Gram stain with many WBCs and rare gram positive cocci in pairs - Repeat blood cultures (09/10/18) NGTD - Repeat labs in AM - Diet as tolerated - Supportive care - if pt remains afebrile overnight, then - PICC line 09/13 - and anticipate d/c to home with [facility] 09/13/18 - Case d/w Infectious Disease, Dr. Chna, 09/13/18 - PICC pleace 09/13/18 - IV Rocephin thru 10/15/17 - see discharge orders - f/u with PCP in 1 week - f/u with ID, Dr. Rell Ortega HTN - Home meds resumed but BP was not well controlled, her Clonidine was increased to 0.2mg BID on 09/10, - increase Losartan to 100mg daily - continue Dyazide - continue verapamil 240mg daily - BP better controlled on 09/11 - Vasotec PRN - Monitor GERD - PPI Hyperlipidemia - Cont. home med Time Spent with Patient Total time spent providing and/or coordinating discharge services: Quality: VTE Deep Vein Thrombosis/Pulmonary Embolism Present on Admission: No Results Labs on day of discharge: Labs from last 24 hours 09/13/18 09/13/18 06:12 06:12 WBC 8.8 RBC 3.70 L Hgb 9.4 L Hct 29.5 L MCV 79.8 L MCH 25.4 L MCHC 31.9 L RDW 19.4 H Plt Count 211 D MPV 8.6 Neut % (Auto) 63.6 Lymph % (Auto) 22.3 [place] % (Auto) 12.5 H Eos % (Auto) 1.3 Baso % (Auto) 0.3 Neut # (Auto) 5.6 Lymph # (Auto) 2.0 [place] # (Auto) 1.1 H Eos # (Auto) 0.1 Baso # (Auto) 0.0 WBC Differential . Differential Comment Auto diff final Creatinine 0.69 Estimated GFR 82 L Preliminary micro results at discharge 09/10/18 16:41 Aerobic Blood Culture - Preliminary Blood - Peripheral No growth in 3 days Anaerobic Blood Culture - Preliminary No growth in 3 days 09/10/18 16:35 Aerobic Blood Culture - Preliminary Blood - Peripheral No growth in 3 days Anaerobic Blood Culture - Preliminary No growth in 3 days Impressions ITS Impressions Chest X-Ray 09/08/18 18:03 CONCLUSION: 1. No acute abnormality. Knee X-Ray 09/08/18 18:03 CONCLUSION: 1. Hardware within the distal femur and proximal tibia status post revision of right knee arthroplasty. 2. No acute fracture or dislocation. Venous Doppler Study 09/08/18 18:08 CONCLUSION: 1. The study is negative for lower extremity deep venous thrombosis. 2. Right inguinal lymphadenopathy which is nonspecific. Knee CT 09/10/18 00:00 CONCLUSION: 1. Nonspecific large joint effusion and severe synovitis. 2. No extra-articular fluid collection or perceptible cellulitis. 3. Right knee arthroplasty changes without evidence of fracture, subluxation or hardware failure/loosening. No acute bony destructive process is seen. Discharge Plan Discharge Disposition Patient Disposition: Discharge Home Discharge Condition Condition: Stable Discharge Order Discharge Orders: Discharge Order (Routine); Ordered 09/13/18 Ordered By: Jonathan Castillo Discharge Details Anticipated Discharge Date: 09/13/18 Physicians Team ED Provider: Ming Benedict Primary Care Provider: Everette Garcia Attending Provider: Jonathan Castillo Other Providers: Nahed Ace ; Ju Chan ; [facility] Rxs /Orders / Referrals /Forms Prescriptions: New ceftriaxone 2 gram Recon Soln 2,000 mg IV Q24H RF: 0 losartan 50 mg Tablet 100 mg PO DAILY Qty: 60 RF: 0 clonidine HCl [Catapres] 0.2 mg Tablet 0.2 mg PO BID Qty: 60 RF: 0 Continue triamterene-hydrochlorothiazid 37.5-25 mg Capsule 1 cap PO DAILY RF: 0 omeprazole 20 mg Capsule,Delayed Release(Dr/Ec) 20 mg PO BID RF: 0 montelukast 10 mg Tablet 10 mg PO DAILY RF: 0 lovastatin 20 mg Tablet 20 mg PO DAILY RF: 0 fluticasone 50 mcg/actuation [place],Suspension 1 spray INTRANASAL DAILY RF: 0 verapamil 240 mg Capsule,Ext Rel. Pellets 24 Hr 240 mg PO DAILY RF: 0 Discontinued losartan 50 mg Tablet 50 mg PO DAILY RF: 0 clonidine HCl 0.1 mg Tablet 0.1 mg PO BID RF: 0 Referrals: Everette Garcia MD [Primary Care Provider] - See Instructions (f/u with PCP, Dr. Everette Garcia, in 1 week) Jignesh Toney MD [Physician] - See Instructions (Follow up in 4 weeks) Discharge Instructions Additional Instructions: Follow up with Dr. Finn 2 weeks office phone: [address] [facility] [place] [address] Status ED Status: Left Department Discharge Information Discharge Date/Time: 09/13/18 15:52
[2018-09-14] MEDS ORDERED: Pharmacy Ordered Lab Info OTHER ONE (17:45)
== END 2018-09-13 15:52 | disposition home or self-care (01) ==
LOC: PHED 17:14 → PHEDA 19:46 → NEPFCDU 21:24 → N05 09-09 18:38
PROVIDERS: ADMIT Hospitalist; ATTEND Hospitalist
DX: M65.861 Other synovitis and tenosynovitis, right lower leg; Z96.651 Presence of right artificial knee joint; B96.20 Unspecified Escherichia coli [E. coli] as the cause of diseases classified elsewhere; Z88.1 Allergy status to other antibiotic agents; N17.9 Acute kidney failure, unspecified; R78.81 Bacteremia; I10 Essential (primary) hypertension; K21.9 Gastro-esophageal reflux disease without esophagitis; E78.5 Hyperlipidemia, unspecified; N39.0 Urinary tract infection, site not specified; M25.461 Effusion, right knee